=== PATIENT | female | born 1980 ===

== ENCOUNTER 2016-12-28 16:50 | Emergency (ER) | payer BC ==
[2016-12-28 16:50] VITALS: BMI 31.2
[2016-12-28 16:59] VITALS: TEMP 98.3
[2016-12-28 17:19] VITALS: RESP 16; O2SAT 98
[2016-12-28 17:45] LABS: BASO % 0.5 % (0.0-2.0); EOS # 0.2 K/uL (0.0-0.7); EOS % 3.5 % (0.0-4.0); HEMOGLOBIN 12.1 g/dL (12.0-16.0); LYMPH # 1.4 K/uL (1.0-4.3); LYMPH % 23.7 % (20.0-40.0); MEAN CELL VOLUME 90.1 fl (81.0-99.0); MEAN CORPUSCULAR HEMOGLOBIN 29.8 pg (27.0-31.0); MEAN CORPUSCULAR HGB CONC 33.1 g/dL (33.0-37.0); MEAN PLATELET VOLUME 7.1 fl (7.2-11.7); MONO # 0.5 K/uL (0.0-0.8); MONO % 8.7 % (0.0-10.0); NEUT # 3.7 K/uL (1.8-7.0); NEUT % 63.6 % (50.0-75.0); RBC 4.06 Mil/uL (3.80-5.20); RED CELL DISTRIBUTION WIDTH 13.5 % (11.5-14.5); WHITE BLOOD COUNT 5.8 K/uL (4.8-10.8)
[2016-12-28 17:54] LABS: ALB/GLOB RATIO 1.3 (1.0-2.1); ALBUMIN 4.3 g/dL (3.5-5.0); ALT/SGPT 69 U/L (9-52); AST/SGOT 50 U/L (14-36); BLOOD UREA NITROGEN 10 mg/dl (7-17); CALCIUM 9.4 mg/dL (8.4-10.2); GFR AFRICAN-AMERICAN > 60; GFR NON-AFRICAN AMERICAN > 60
--- NOTE | 2016-12-28 18:05 | ED PDOC ---
Arrival/HPI - General Chief Complaint: Shortness Of Breath Time Seen by Provider: 12/28/16 17:12 Historian: Patient - History of Present Illness Narrative History of Present Illness (Text): The patient is a 36yo female, presents to ED for evaluation of left sided chest pressure, present for the past day. Patient reports her symptoms are worse with movement and inspiration. Of note, patient reports she works in [employer]. She denies any history of hypertension, diabetes, tobacco use, family history of early deaths due to cardiac factors. Patient also denies cough, URI symptoms , abdominal pain, nausea, vomiting, diarrhea, neck pain. Patient currently offers no additional medical complaints. Past Medical History - Provider Review Nursing Documentation Reviewed: Yes - Past History Past History: No Previous - Past Medical History Past Medical History: No Previous - Cardiac Hx Cardiac Disorders: No - Pulmonary Hx Respiratory Disorders: No - Neurological Hx Neurological Disorder: No - Hematological/Oncological Hx Anemia: Yes - Psychiatric Hx Psychophysiologic Disorder: No Hx Substance Use: No - Surgical History Hx Appendectomy: Yes - Anesthesia Hx Anesthesia: Yes Hx Anesthesia Reactions: No Hx Malignant Hyperthermia: No Family/Social History - Physician Review Nursing Documentation Reviewed: Yes Family/Social History: No Known Family HX. denies: Diabetes, Hypertension, CAD/ DE, Blood Clots, Aortic/Thoracic Disection Smoking Status: Unknown If Ever Smoked Hx Alcohol Use: No Hx Substance Use: No Allergies/Home Meds Allergies/Adverse Reactions: Allergies Penicillins Allergy (Verified 12/28/16 17:14) RASH Review of Systems - Physician Review All systems were reviewed & negative as marked: Yes - Review of Systems ENT: absent: Sore Throat, Rhinorrhea, Sinus Congestion Respiratory: absent: Cough Cardiovascular: Other (chest pressure) Gastrointestinal: absent: Abdominal Pain, Diarrhea, Nausea, Vomiting Musculoskeletal: absent: Neck Pain Physical Exam Vital Signs Temp Pulse Resp BP Pulse Ox 12/28/16 18:36 70 16 122/70 98 12/28/16 17:17 16 98 12/28/16 16:56 98.3 F 76 18 119/78 100 Temperature: Afebrile Blood Pressure: Normal Pulse: Regular Respiratory Rate: Normal Appearance: Positive for: Well-Appearing, Non-Toxic, Comfortable Pain Distress: None Mental Status: Positive for: Alert and Oriented X 3 - Systems Exam Head: Present: Atraumatic, Normocephalic Pupils: Present: PERRL Extroacular Muscles: Present: EOMI Mouth: Present: Moist Mucous Membranes Respiratory/Chest: Present: Clear to Auscultation, Good Air Exchange. No: Respiratory Distress, Accessory Muscle Use Cardiovascular: Present: Regular Rate and Rhythm, Normal S1, S2. No: Murmurs Abdomen: Present: Normal Bowel Sounds. No: Tenderness, Distention, Peritoneal Signs Neurological: Present: GCS=15, CN II-XII Intact, Speech Normal Skin: Present: Warm, Dry, Normal Color. No: Rashes Psychiatric: Present: Alert, Oriented x 3, Normal Insight, Normal Concentration Medical Decision Making ED Course and Treatment: 12/28/16 18:07 Impression: Chest discomfort, no hx of cardiac complaints Plan: -- Chest x-ray -- Labs -- Toradol 30 mg IVP Reassess Scribe Attestation: Documented by Kim Montiel acting as a scribe for Helena Sterling MD. Provider Attestation: All medical record entries made by the Scribe were at my direction and personally dictated by me. I have reviewed the chart and agree that the record accurately reflects my personal performance of the history, physical exam, medical decision making, and the department course for this patient. I have also personally directed, reviewed, and agree with the discharge instructions and disposition. 12/28/16 18:11 EKG shows NSR at 80bpm with normal intervals and no ST changes. Cxray negative. Labs show normal hgb. Ddimer negative. Elevated lfts (lower than baseline). Patient has no risk factors for cardiac disease and has normal ekg. She was instructed to follow-up with PMD - Lab Interpretations Lab Results: 12/28/16 17:30 12/28/16 17:30 Lab Results 12/28/16 17:30: WBC 5.8, RBC 4.06, Hgb 12.1, Hct 36.6, MCV 90.1 D, MCH 29.8, MCHC 33.1, RDW 13.5, Plt Count 370, MPV 7.1 L, Neut % (Auto) 63.6, Lymph % (Auto ) 23.7, Mccone % (Auto) 8.7, Eos % (Auto) 3.5, Baso % (Auto) 0.5, Neut # 3.7, Lymph # 1.4, Mccone # 0.5, Eos # 0.2, Baso # 0.0 12/28/16 17:30: D-Dimer, Quantitative 146 12/28/16 17:30: Sodium 138, Potassium 4.2, Chloride 103, Carbon Dioxide 27, Anion Gap 13, BUN 10, Creatinine 0.8, Est GFR ( Amer) > 60, Est GFR (Non- Af Amer) > 60, Random Glucose 100, Calcium 9.4, Total Bilirubin 0.3, AST 50 H, ALT 69 H D, Alkaline Phosphatase 69, Total Protein 7.4, Albumin 4.3, Globulin 3.2, Albumin/Globulin Ratio 1.3 - RAD Interpretation Radiology Orders: 12/28/16 17:16 CHEST PORTABLE [RAD] Stat - Medication Orders Current Medication Orders: Discontinued Medications Ketorolac Tromethamine (Toradol) 30 mg IVP STAT STA Stop: 12/28/16 17:57 Last Admin: 12/28/16 18:01 Dose: 30 mg Disposition/Present on Arrival - Present on Arrival Any Indicators Present on Arrival: No - Disposition Have Diagnosis and Disposition been Completed?: Yes Diagnosis: Elevated LFTs, Chest pain Disposition: HOME/ ROUTINE Disposition Time: 18:12 Patient Plan: Discharge Condition: GOOD Discharge Instructions (ExitCare): Chest Pain (ED) Print Language: BELARUSIAN Additional Instructions: Follow up with PMD within 2 days. Return to ED if condition worsens. Forms: [facility] ED School/Work Excuse
--- NOTE | 2016-12-28 18:16 | RAD ---
HISTORY: chest pain COMPARISON: 08/14/2013 FINDINGS: LUNGS: No active pulmonary disease. PLEURA: No significant pleural effusion identified, no pneumothorax apparent. CARDIOVASCULAR: No radiographic findings to suggest acute or significant cardiovascular disease. OSSEOUS STRUCTURES: No significant abnormalities. VISUALIZED UPPER ABDOMEN: Normal. OTHER FINDINGS: None. IMPRESSION: No active disease. No significant interval change compared to the prior examination(s).
[2016-12-28 18:37] VITALS: BP 122/70; PULSE 70
== END 2016-12-28 18:37 | disposition home or self-care (01) ==
LOC: H.ER 16:50
DX: R07.89 Other chest pain (principal); R94.5 Abnormal results of liver function studies; Z88.0 Allergy status to penicillin
CPT/HCPCS: 71010; 80053; 81025; 85025; 85378; 96374; 99283; J1885

== ENCOUNTER 2017-01-08 16:16 | Emergency (ER) | payer OTHER, BC ==
[2017-01-08 16:16] VITALS: BMI 31.2
[2017-01-08 16:21] VITALS: BP 132/90; PULSE 123; RESP 17; TEMP 98.8; O2SAT 99
[2017-01-08] MEDS ORDERED: Naproxen 500 MG TAB PO ONE ×2 (17:18→19:05)
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
--- NOTE | 2017-01-09 14:57 | RAD ---
PROCEDURE: Cervical Spine Radiographs. HISTORY: Pain. COMPARISON: None. FINDINGS: BONES: Alignment maintained. No fracture. Dens Intact. DISC SPACES: Normal. SOFT TISSUES: Normal. No prevertebral soft tissue swelling. OTHER FINDINGS: None. IMPRESSION: Normal cervical spine radiographs
== END 2017-01-08 20:52 | disposition home or self-care (01) ==
LOC: H.ER 16:16
DX: M54.5 Low back pain (principal); S16.1XXA Strain of muscle, fascia and tendon at neck level, initial encounter; V49.50XA Passenger injured in collision with unspecified motor vehicles in traffic accident, initial encounter; Y92.410 Unspecified street and highway as the place of occurrence of the external cause; E03.9 Hypothyroidism, unspecified; Z88.0 Allergy status to penicillin

== ENCOUNTER 2017-07-21 22:23 | Emergency (ER) | payer BC ==
[2017-07-21 22:57] VITALS: BP 146/93; PULSE 110; RESP 18; TEMP 98.7; O2SAT 100
[2017-07-21 23:58] LABS: BASO # 0.1 K/uL (0.0-0.2); BASO % 0.6 % (0.0-2.0); EOS # 0.2 K/uL (0.0-0.7); EOS % 2.2 % (0.0-4.0); HEMOGLOBIN 11.9 g/dL (12.0-16.0); LYMPH # 1.7 K/uL (1.0-4.3); LYMPH % 19.4 % (20.0-40.0); MEAN CELL VOLUME 87.9 fl (81.0-99.0); MEAN CORPUSCULAR HGB CONC 34.1 g/dL (33.0-37.0); MEAN PLATELET VOLUME 7.4 fl (7.2-11.7); MONO # 0.6 K/uL (0.0-0.8); MONO % 6.4 % (0.0-10.0); NEUT # 6.1 K/uL (1.8-7.0); NEUT % 71.4 % (50.0-75.0); NRBC % 0.1 % (0.0-0.0); RBC 3.97 Mil/uL (3.80-5.20); RED CELL DISTRIBUTION WIDTH 15.8 % (11.5-14.5); WHITE BLOOD COUNT 8.6 K/uL (4.8-10.8)
[2017-07-22 00:10] LABS: BLOOD UREA NITROGEN 7 mg/dl (7-17); CALCIUM 9.6 mg/dL (8.4-10.2); GFR AFRICAN-AMERICAN > 60; GFR NON-AFRICAN AMERICAN > 60
--- NOTE | 2017-07-22 00:27 | ED PDOC ---
HPI: Abdomen Time Seen by Provider: 07/21/17 23:10 Chief Complaint (Nursing): Abdominal Pain Chief Complaint (Provider): Abdominal Pain History Per: Patient History/Exam Limitations: no limitations Onset/Duration Of Symptoms: Days (x2 days) Current Symptoms Are (Timing): Still Present Additional Complaint(s): 36 y/o female with past medical history of uterine fibroids presents to the ED complaining of lower abdominal pain since yesterday. Pain is constant, non- radiating and not worst with urination. Also reports lower back pain. Patient is 10 weeks ( and 4 miscarriages). Denies fever, vomiting, diarrhea, vaginal bleeding or any further medical complaints. Insurance Office Supervisor: Dr. Barth Past Medical History Reviewed: Historical Data, Nursing Documentation, Vital Signs Vital Signs: Last Vital Signs Temp 98.7 F 07/21/17 22:53 Pulse 110 H 07/21/17 22:53 Resp 18 07/21/17 22:53 BP 146/93 H 07/21/17 22:53 Pulse Ox 100 07/22/17 03:08 - Medical History PMH: Anemia, Hypothyroidism Other PMH: Uterine fibroid - Surgical History Surgical History: Appendectomy, - Family History Family History: States: Unknown Family Hx - Social History Current smoker - smoking cessation education provided: No Alcohol: None Drugs: Denies - Home Medications Home Medications: Ambulatory Orders Medication Instructions Recorded Ibuprofen [Motrin] 600 mg PO Q6 PRN #20 tab 10/14/14 Meclizine [Meclizine*] 25 mg PO Q6 PRN #30 tab 10/14/14 Cyclobenzaprine [Cyclobenzaprine 10 mg PO Q8 PRN #30 tab 01/08/17 HCl] Naproxen [Naprosyn] 500 mg PO BID PRN #30 tab 01/08/17 - Allergies Allergies/Adverse Reactions: Allergies Allergy/AdvReac Type Severity Reaction Status Date / Time Penicillins Allergy RASH Verified 07/21/17 22:53 Review of Systems ROS Statement: Except As Marked, All Systems Reviewed And Found Negative (As per HPI, otherwise negative) Constitutional: Negative for: Fever Gastrointestinal: Positive for: Abdominal Pain (Lower abdominal pain). Negative for: Vomiting, Diarrhea Genitourinary Female: Negative for: Vaginal Bleeding Musculoskeletal: Positive for: Back Pain (Lower) Physical Exam - Reviewed Nursing Documentation Reviewed: Yes Vital Signs Reviewed: Yes - Physical Exam Appears: Positive for: Well, Non-toxic, No Acute Distress Head Exam: Positive for: ATRAUMATIC, NORMAL INSPECTION, NORMOCEPHALIC Skin: Positive for: Normal Color, Warm, Dry Eye Exam: Positive for: Normal appearance, EOMI ENT: Positive for: Normal ENT Inspection Neck: Positive for: Normal, Painless ROM, Supple Cardiovascular/Chest: Positive for: Regular Rate, Rhythm. Negative for: Murmur Respiratory: Positive for: Normal Breath Sounds. Negative for: Respiratory Distress Gastrointestinal/Abdominal: Positive for: Soft, Tenderness (Lower abdominal tenderness), Other (Suprapubic tenderness) Back: Positive for: Normal Inspection Extremity: Positive for: Normal ROM. Negative for: Deformity Neurologic/Psych: Positive for: Alert, Oriented (x3) - Laboratory Results Result Diagrams: 07/21/17 23:54 07/21/17 23:54 - ECG O2 Sat by Pulse Oximetry: 100 (RA) Pulse Ox Interpretation: Normal Medical Decision Making Medical Decision Making: Time: 23:17 Initial Impression: abdominal pain in Differential including but not limited to UTI, uterine fibroids, complications Plan: Urine dipstick Urine Acetaminophen 650mg PO IV insertion US (OB , limited) Reevaluation Time: 02:46 Obstetrics US FINDINGS: Fetus: Single, living, intrauterine . Position: presentation is breech. Heart rate: A normal heart rate of 152 beats per minute documented by an mode imaging. Biometrics: Estimated gestational age of 19 weeks 4 days based on the current exam. This corresponds to an estimated delivery date of 12/12/2017, and is identical to LMP dating. Estimated weight 303.70 g +/- 25.56 g. This corresponds to an LMP percentile 48.9%. - Femur length 3.09 cm, corresponding to 19 weeks 4 days. - Biparietal diameter 4.50 cm, corresponding to 19 weeks 4 days. - Head circumference 16.91 cm, corresponding to 19 weeks 4 days. - Abdominal circumference 14.36 cm, corresponding to 19 weeks 5 days. - HC/AC 1.18. - Cephalic index is 75.06. Placenta: The placenta is anterior and approximately 3.2 cm from the internal cervical os. No abruption. Uterus: The uterus is heterogeneous with multiple internal heterogeneous masses measuring up to 4.7 cm x 5.8 cm x 5.3 cm in region of the right uterine fundus. Cervix: The cervix is long and closed measuring 4.2 cm in length. Adnexa: Normal appearance of the right and left adnexa. No evident mass. The ovaries are not visualized. Bladder: The imaged portion of the urinary bladder is unremarkable. IMPRESSION: 1. Single, living, intrauterine in breech presentation. Estimated gestational age of 19 weeks 4 days based on the current exam. This corresponds to an estimated delivery date of 12/12/2017, and is identical to LMP dating. 2. The placenta is anterior and well away from the cervix. 3. Estimated weight 303.70 g, corresponding to an LMP percentile of 48.9%. 4. Fibroid uterus Time: 02:59 Upon provider reevaluation patient is feeling better, is medically stable, and requires no further treatment in the ED at this time. Patient will be discharged home. Counseling was provided and all questions were answered regarding diagnosis and need for follow up with PMD. There is agreement to discharge plan. Return if symptoms persist or worsen. Clinical Impression: Uterine Fibroid Scribe Attestation: Documented by Cristina Patel acting as a scribe for Srikanth Lamb MD. Scribe Attestation: All medical record entries made by the Scribe were at my direction and personally dictated by me. I have reviewed the chart and agree that the record accurately reflects my personal performance of the history, physical exam, medical decision making, and the department course for this patient. I have also personally directed, reviewed, and agree with the discharge instructions and disposition. Disposition - Clinical Impression Clinical Impression: Abdominal pain during , Uterine fibroid - Patient ED Disposition Is Patient to be Admitted: No Doctor Will See Patient In The: Office Counseled Patient/Family Regarding: Studies Performed, Diagnosis, Need For Followup - Disposition Referrals: [facility] [Outside] Disposition: Routine/Home Disposition Time: 02:59 Condition: GOOD Additional Instructions: Follow up with your PCP in 2-3 days. Instructions: Uterine Fibroids (ED), Abdominal Pain in (ED) Print Language: KOREAN
--- NOTE | 2017-07-22 09:43 | US ---
PROCEDURE: OB Pelvic Ultrasound HISTORY: lower abdominal pain LMP: 03/07/2017. COMPARISON: None available. FINDINGS: UTERUS: Presentation: Breech. Placenta: Anterior. BPD: 4.5 cm compatible with estimated gestational age of 19 weeks, 4 days. HC: 16.9 cm compatible with estimated gestational age of 19 weeks, 4 days. HC: 14.4 cm compatible with estimated gestational age of 19 weeks, 5 days. FL: 3.1 cm compatible with estimated gestational age of 19 weeks, 4 days. Heart rate: 152 bpm. age (Ultrasound estimated): 19 weeks, 4 days. Jing-gestational hemorrhage: None. Date of delivery (Ultrasound estimated) : 12/12/2017 Multiple uterine fibroids, the largest which is seen in the fundus and measures 4.7 x 5.8 x 5.3 cm. CERVIX: Measures 4.2 cm. Long and closed. No cervical abnormality seen. RIGHT OVARY: Not visualized. LEFT OVARY: Not visualized. FREE FLUID: None. OTHER FINDINGS: None. IMPRESSION: Single live intrauterine gestation with average ultrasound age 19 weeks, 4 days. heart rate 152 beats per minute. Cervix long and closed. Multiple leiomyomas, the largest of which measures up to 5.8 cm at the fundus.
== END 2017-07-22 03:23 | disposition home or self-care (01) ==
LOC: H.EROB2 22:23 → H.ER 22:23
DX: O26.892 Other specified pregnancy related conditions, second trimester (principal); D25.9 Leiomyoma of uterus, unspecified; O34.12 Maternal care for benign tumor of corpus uteri, second trimester; E03.9 Hypothyroidism, unspecified; Z88.0 Allergy status to penicillin

== ENCOUNTER 2018-01-31 18:35 | Emergency (ER) | payer BC ==
[2018-01-31 18:35] VITALS: BMI 29.2
[2018-01-31 18:38] VITALS: RESP 16; O2SAT 100
[2018-01-31] MEDS ORDERED: Sodium Chloride 0.9% 1,000 ML IV STA (20:00)
[2018-01-31] MEDS ORDERED: Alum-Mag Hydrox-Simethicone Susp (30 mL) PO STA (20:00)
--- NOTE | 2018-01-31 20:00 | ED PDOC ---
HPI: Abdomen Time Seen by Provider: 01/31/18 18:55 Chief Complaint (Nursing): Abdominal Pain Chief Complaint (Provider): Epigastric pain x 1 month History Per: Patient History/Exam Limitations: no limitations Onset/Duration Of Symptoms: Days Outside of [place] travel?: No Current Symptoms Are (Timing): Still Present Quality Of Discomfort: Dull Associated Symptoms: Urinary Symptoms Exacerbating Factors: None Alleviating Factors: None Additional Complaint(s): 37 yo female with history of gastriitis, thyroid disease and gallbladder disease presents for evaluation of epigastric pain. PT states she was told she has stones. Pt reports being told to see surgeon but has not made an appointment yet. Pt denies fever/chills. Pt has pain today in the epigastric area with nausea and vomiting. Pt states she has been unable to tolerate PO. Past Medical History Reviewed: Historical Data, Nursing Documentation, Vital Signs Vital Signs: Last Vital Signs Temp 97.9 F 01/31/18 18:35 Pulse 114 H 01/31/18 18:35 Resp 16 01/31/18 18:35 BP 118/87 01/31/18 18:35 Pulse Ox 100 01/31/18 20:00 - Medical History PMH: Anemia, Hypothyroidism - Surgical History Surgical History: Appendectomy, - Family History Family History: States: No Known Family Hx - Living Arrangements Living Arrangements: With Family - Social History Current smoker - smoking cessation education provided: No - Home Medications Home Medications: Ambulatory Orders Medication Instructions Recorded Ibuprofen [Motrin] 600 mg PO Q6 PRN #20 tab 10/14/14 Meclizine [Meclizine*] 25 mg PO Q6 PRN #30 tab 10/14/14 Cyclobenzaprine [Cyclobenzaprine 10 mg PO Q8 PRN #30 tab 01/08/17 HCl] Naproxen [Naprosyn] 500 mg PO BID PRN #30 tab 01/08/17 Nitrofurantoin Macrocrystals 1 cap PO BID #14 cap 09/25/17 [Macrobid] - Allergies Allergies/Adverse Reactions: Allergies Allergy/AdvReac Type Severity Reaction Status Date / Time Penicillins Allergy RASH Verified 07/21/17 22:53 Review of Systems ROS Statement: Except As Marked, All Systems Reviewed And Found Negative Constitutional: Negative for: Fever, Chills Gastrointestinal: Positive for: Nausea, Vomiting, Abdominal Pain. Negative for : Diarrhea Physical Exam - Reviewed Nursing Documentation Reviewed: Yes Vital Signs Reviewed: Yes - Physical Exam Appears: Positive for: Well, Non-toxic, No Acute Distress Head Exam: Positive for: ATRAUMATIC, NORMAL INSPECTION, NORMOCEPHALIC Skin: Positive for: Normal Color, Warm, DRY Eye Exam: Positive for: Normal appearance ENT: Positive for: Normal ENT Inspection Neck: Positive for: Normal, Painless ROM Cardiovascular/Chest: Positive for: Regular Rate, Rhythm Respiratory: Positive for: Normal Breath Sounds. Negative for: Accessory Muscle Use, Respiratory Distress Gastrointestinal/Abdominal: Positive for: Soft, Tenderness (Epigastric, RUQ ). Negative for: Normal Exam Back: Positive for: Normal Inspection Extremity: Positive for: Normal ROM Neurologic/Psych: Positive for: Alert, Oriented - ECG O2 Sat by Pulse Oximetry: 100 Medical Decision Making Medical Decision Making: Endorsed to Megan Vigil PA-C pending labs and US. Disposition - Clinical Impression Clinical Impression: Abdominal pain - Patient ED Disposition Is Patient to be Admitted: Transfer of Care - Disposition Disposition: Transfer of Care Disposition Time: 20:12 Condition: STABLE Forms: [employer] (Guatemalan)
[2018-01-31] MEDS ORDERED: Alum-Mag Hydrox-Simethicone Susp (30 mL) ONE (20:12)
--- NOTE | 2018-01-31 20:21 | ED PDOC ---
- Laboratory Results Result Diagrams: 01/31/18 20:07 01/31/18 20:07 Urine POC: Negative - ECG O2 Sat by Pulse Oximetry: 100 (RA) Pulse Ox Interpretation: Normal Medical Decision Making Medical Decision Making: Case endorsed to health science writer, Musa BORJAS, at 1999 pending lab results, U/S evaluation, and re-evaluation/further disposition. Pertinent details reviewed. 2115 Labs reviewed. CMP with slight elevation of LFTs. Lipase 121. CBC (+) elevated platelets. Follow up with PMD encouraged. U/S report reviewed EXAM: US Abdomen Limited, Right Upper Quadrant CLINICAL HISTORY: 37 years old, female; Pain; Abdominal pain; Epigastric; Additional info: Ruq pain TECHNIQUE: Real-time ultrasound of the right upper quadrant with image documentation. COMPARISON: No relevant prior studies available. FINDINGS: Liver: Normal echogenicity. No mass. No intrahepatic bile duct dilatation. Gallbladder: Gallstones. Sludge. Up to 0.41 cm wall thickness. No pericholecystic fluid. No sonographic Snowden's sign. Common bile duct: No dilatation. No stones. Pancreas: Unremarkable as visualized. Right kidney: Normal echogenicity. No significant hydronephrosis. IMPRESSION: 1. Cholelithiasis with mild gallbladder wall thickening. Clinical correlation is needed. Thank you for allowing us to participate in the care of your patient. Dictated and Authenticated by: Florentino Mcclelland MD 01/31/2018 9:14 PM Eastern Time ([place] & [place]) PO challenge ordered. Pending repeat vitals. 2200 Repeat HR: 90 Repeat BP: 111/80 2210 Case discussed with ED MD Lamb who is agreeable to current treatment plan. On re-evaluation, patient reports resolution of symptoms, denies any additional vomiting episodes or abdominal pain. On exam, patient remains AAOx3, in no acute distress. Lungs clear to auscultation, cardiac RRR, abdomen soft, non- tender, repeat neuro exam shows no focal findings. VSS, stable for discharge. Lab/Diagnostic results d/w the patient in great detail. Diagnosis of abdominal pain, nausea and vomiting, gallstones d/w the patient. Based on history, exam and diagnostic results, plan will be for outpatient follow up with general surgeon. Patient instructed to follow-up with pmd / referral provided / the clinic in 1- 2 days without fail. Advised to take medication as prescribed. Return to the emergency room at any time for any new or worsening symptoms. Patient states she fully agrees with and understands discharge instructions. States that she agrees with the plan and disposition. Verbalized and repeated discharge instructions and plan. I have given the patient opportunity to ask any additional questions Disposition Counseled Patient/Family Regarding: Studies Performed, Diagnosis, Need For Followup, Rx Given - Clinical Impression Clinical Impression: Abdominal pain, Gallstones, Nausea and vomiting - POA Present On Arrival: None - Disposition Referrals: Chris Smith MD [Staff Provider] - Disposition: Routine/Home Disposition Time: 22:12 Condition: STABLE Additional Instructions: La atencin mdica de emergencia que recibi hoy se dirigi a los sntomas agudos de presentacin. Si le prescribieron algn medicamento, por favor ll basil y d justin indicado. Shaista sntomas pueden tardar varios lopez en resolverse. Regrese al Departamento de Emergencia en cualquier momento si los sntomas empeoran, no mejoran o si surge algn otro problema. Comunquese con rachel mdico en 2 lopez para guzman reevaluacin y seguimiento / o llame a samson de los mdicos / clnicas a los que mcgee referido y que figura en el formulario de Informacin de visitas del paciente que se incluye en rachel paquete de dee. Lleve todos los documentos que recibi al momento del dee junto con los medicamentos a rachel visita de seguimiento. Nuestro tratamiento no puede reemplazar la atencin mdica en curso por parte de un proveedor de atencin primaria (PCP) fuera del departamento de emergencias. Prescriptions: Famotidine [Pepcid] 40 mg PO DAILY PRN #10 tablet PRN Reason: Dyspepsia Ondansetron ODT [Zofran ODT] 4 mg PO Q6 PRN #12 odt PRN Reason: Nausea/Vomiting Instructions: Gallstones, Acute Abdomen (Belly Pain), Adult (DC), Nausea and Vomiting, Adult (DC) Forms: [employer] (Grenadian) Print Language: NEPALESE Results - Lab Results Lab Results: 01/31/18 01/31/18 20:07 20:07 WBC 11.3 H RBC 5.18 Hgb 12.5 Hct 39.4 MCV 76.0 L D MCH 24.0 L MCHC 31.6 L RDW 16.4 H Plt Count 611 H D MPV 7.2 Neut % (Auto) 91.7 H Lymph % (Auto) 5.8 L [place] % (Auto) 2.5 Eos % (Auto) 0.0 Baso % (Auto) 0.0 Neut # (Auto) 10.3 H Lymph # (Auto) 0.7 L [place] # (Auto) 0.3 Eos # (Auto) 0.0 Baso # (Auto) 0.0 Neutrophils % (Manual) 93 H Band Neutrophils % 1 Lymphocytes % (Manual) 4 L Monocytes % (Manual) 2 Platelet Estimate Increased H Polychromasia Slight Hypochromasia (manual) Slight Poikilocytosis (manual Slight Anisocytosis (manual) Slight Microcytosis (manual) Slight Ovalocytes Slight Sodium 138 Potassium 4.1 Chloride 100 Carbon Dioxide 22 Anion Gap 20 BUN 7 Creatinine 0.6 L Est GFR ( Amer) > 60 Est GFR (Non-Af Amer) > 60 Random Glucose 109 H Calcium 10.0 Total Bilirubin 0.8 AST 51 H D ALT 56 H Alkaline Phosphatase 105 Total Protein 8.9 H Albumin 4.9 Globulin 4.0 H Albumin/Globulin Ratio 1.2 Lipase 121
[2018-01-31 20:50] LABS: HEMOGLOBIN 12.5 g/dL (12.0-16.0); LYMPH # 0.7 K/uL (1.0-4.3); LYMPH % 5.8 % (20.0-40.0); MEAN CORPUSCULAR HGB CONC 31.6 g/dL (33.0-37.0); MEAN PLATELET VOLUME 7.2 fl (7.2-11.7); MONO # 0.3 K/uL (0.0-0.8); MONO % 2.5 % (0.0-10.0); NEUT # 10.3 K/uL (1.8-7.0); NEUT % 91.7 % (50.0-75.0); PLATELET COUNT 611 K/uL (130-400); RBC 5.18 Mil/uL (3.80-5.20); RED CELL DISTRIBUTION WIDTH 16.4 % (11.5-14.5); WHITE BLOOD COUNT 11.3 K/uL (4.8-10.8)
[2018-01-31 21:08] LABS: ALB/GLOB RATIO 1.2 (1.0-2.1); ALBUMIN 4.9 g/dL (3.5-5.0); ALT/SGPT 56 U/L (9-52); AST/SGOT 51 U/L (14-36); BLOOD UREA NITROGEN 7 mg/dl (7-17); GFR AFRICAN-AMERICAN > 60; GFR NON-AFRICAN AMERICAN > 60; LIPASE 121 U/L (23-300)
[2018-01-31 21:36] VITALS: BP 111/80; PULSE 90; TEMP 98.8
[2018-01-31 22:56] LABS: BANDS 1 % (0-2); LYMPHOCYTE 4 % (20-50); MONOCYTE 2 % (0-10); NEUTROPHIL 93 % (42-75); TOTAL CELLS COUNTED 100
[2018-01-31 22:57] LABS: ANISOCYTOSIS SLIGHT; HYPOCHROMIC SLIGHT; MICROCYTOSIS SLIGHT; OVALOCYTES SLIGHT; PLATELET ESTIMATE INCREASED (NORMAL); POIKILOCYTOSIS SLIGHT; POLYCHROMIC SLIGHT
--- NOTE | 2018-02-01 09:22 | US ---
Date of service: 01/31/2018 HISTORY: ruq pain COMPARISON: None. TECHNIQUE: Sonographic evaluation of the right upper quadrant of the abdomen. FINDINGS: LIVER: Measures 14.8 cm in length. Normal echogenicity of the liver parenchyma. No mass. No intrahepatic bile duct dilatation. GALLBLADDER: Cholelithiasis. Sludge. Mild mural thickening. No pericholecystic fluid. Negative sonographic Snowden sign. Findings are equivocal for cholecystitis. COMMON BILE DUCT: Measures 3 mm. No stones. No dilatation. PANCREAS: Unremarkable as visualized. No mass. No ductal dilatation. RIGHT KIDNEY: Measures 8.6 cm in length. Normal echogenicity. No calculus, mass, or hydronephrosis. AORTA: No aneurysmal dilatation. IVC: Unremarkable. OTHER FINDINGS: None . IMPRESSION: Cholelithiasis with mild mural thickening but no pericholecystic fluid or sonographic Snowden sign. The findings are equivocal for cholecystitis. The preliminary findings for this examination were reported by [facility] at 9:14 p.m. on 01/31/2018. There is concurrence of this report with the preliminary findings.
== END 2018-01-31 22:35 | disposition home or self-care (01) ==
LOC: H.ER 18:35
DX: R10.13 Epigastric pain (principal); K80.20 Calculus of gallbladder without cholecystitis without obstruction; R11.2 Nausea with vomiting, unspecified; E03.9 Hypothyroidism, unspecified; Z88.0 Allergy status to penicillin
CPT/HCPCS: 76705; 80053; 81025; 83690; 85025; 96360; 99283; J2405; J7030

== ENCOUNTER 2018-02-10 06:42 | Inpatient (IN) | payer BC ==
[2018-02-10 06:42] VITALS: BMI 29.2
[2018-02-10] MEDS ORDERED: Sodium Chloride 0.9% 1,000 ML IV STA (07:08)
--- NOTE | 2018-02-10 07:15 | ED PDOC ---
HPI: Abdomen Time Seen by Provider: 02/10/18 07:03 Chief Complaint (Nursing): Abdominal Pain Chief Complaint (Provider): Abdominal Pain History Per: Patient History/Exam Limitations: no limitations Onset/Duration Of Symptoms: Hrs Location Of Pain/Discomfort: RUQ Associated Symptoms: Nausea, Vomiting. denies: Fever, Diarrhea Additional Complaint(s): 37 years old female with history of gallstones presents to the ED complaining of right upper quadrant pain associated with nausea and vomiting onset last night. Patient is scheduled for cholecystectomy in March. She denies any fever or diarrhea. PMD: Cecy Past Medical History Reviewed: Historical Data, Nursing Documentation, Vital Signs Vital Signs: Last Vital Signs Temp 98 F 02/10/18 07:00 Pulse 118 H 02/10/18 07:00 Resp 16 02/10/18 07:00 BP 127/94 H 02/10/18 07:00 Pulse Ox 100 02/10/18 07:19 - Medical History PMH: Anemia, Hypothyroidism - Surgical History Surgical History: Appendectomy, - Family History Family History: States: Unknown Family Hx - Home Medications Home Medications: Ambulatory Orders Medication Instructions Recorded Ibuprofen [Motrin] 600 mg PO Q6 PRN #20 tab 10/14/14 Meclizine [Meclizine*] 25 mg PO Q6 PRN #30 tab 10/14/14 Cyclobenzaprine [Cyclobenzaprine 10 mg PO Q8 PRN #30 tab 01/08/17 HCl] Naproxen [Naprosyn] 500 mg PO BID PRN #30 tab 01/08/17 Nitrofurantoin Macrocrystals 1 cap PO BID #14 cap 09/25/17 [Macrobid] Famotidine [Pepcid] 40 mg PO DAILY PRN #10 tablet 01/31/18 Ondansetron ODT [Zofran ODT] 4 mg PO Q6 PRN #12 odt 01/31/18 - Allergies Allergies/Adverse Reactions: Allergies Allergy/AdvReac Type Severity Reaction Status Date / Time Penicillins Allergy RASH Verified 02/10/18 07:00 Review of Systems ROS Statement: Except As Marked, All Systems Reviewed And Found Negative Constitutional: Negative for: Fever Gastrointestinal: Positive for: Nausea, Vomiting, Abdominal Pain (RUQ). Negative for: Diarrhea Physical Exam - Reviewed Nursing Documentation Reviewed: Yes Vital Signs Reviewed: Yes - Physical Exam Appears: Positive for: Non-toxic, No Acute Distress Cardiovascular/Chest: Positive for: Regular Rate, Rhythm. Negative for: Murmur Respiratory: Positive for: Normal Breath Sounds. Negative for: Respiratory Distress Gastrointestinal/Abdominal: Positive for: Tenderness (RUQ). Negative for: Rebound Extremity: Positive for: Normal ROM. Negative for: Tenderness, Swelling Neurologic/Psych: Positive for: Alert, Oriented - Laboratory Results Result Diagrams: 02/10/18 07:23 02/10/18 07:23 - ECG O2 Sat by Pulse Oximetry: 100 (RA) Pulse Ox Interpretation: Normal Medical Decision Making Medical Decision Making: Time: 706 Initial Plan: --CMP --Lipase --Urine --Urine dipstick --CBC --Morphine --NaCl 2 mg IVP --Pepcid 20 mg IVP --Zofran 4 mg IVP --Abdomen US limited ----- Scribe Attestation: Documented by Beata Garcia, acting as a scribe for Ab Cole MD. Provider Scribe Attestation: All medical record entries made by the Scribe were at my direction and personally dictated by me. I have reviewed the chart and agree that the record accurately reflects my personal performance of the history, physical exam, medical decision making, and the department course for this patient. I have also personally directed, reviewed, and agree with the discharge instructions and disposition. Disposition - Clinical Impression Clinical Impression: Cholecystitis - Patient ED Disposition Is Patient to be Admitted: Yes - Disposition Disposition Time: 10:33 Condition: FAIR Forms: [facility] (Albanian) - Pt Status Changed To: Hospital Disposition Of: Inpatient - Admit Certification Admit to Inpatient:: After my assessment, the patient will require hospitalization for at least two midnights. This is because of the severity of symptoms shown, intensity of services needed, and/or the medical risk in this patient being treated as an outpatient. - POA Present On Arrival: None
[2018-02-10 07:33] LABS: BASO % 0.3 % (0.0-2.0); EOS % 0.1 % (0.0-4.0); HEMOGLOBIN 11.8 g/dL (12.0-16.0); LYMPH # 0.6 K/uL (1.0-4.3); LYMPH % 5.3 % (20.0-40.0); MEAN CORPUSCULAR HEMOGLOBIN 23.9 pg (27.0-31.0); MEAN CORPUSCULAR HGB CONC 31.4 g/dL (33.0-37.0); MEAN PLATELET VOLUME 6.9 fl (7.2-11.7); MONO # 0.5 K/uL (0.0-0.8); MONO % 4.6 % (0.0-10.0); NEUT % 89.7 % (50.0-75.0); PLATELET COUNT 555 K/uL (130-400); RBC 4.92 Mil/uL (3.80-5.20); RED CELL DISTRIBUTION WIDTH 17.2 % (11.5-14.5); WHITE BLOOD COUNT 11.1 K/uL (4.8-10.8)
[2018-02-10 07:53] LABS: ALB/GLOB RATIO 1.4 (1.0-2.1); ALBUMIN 4.8 g/dL (3.5-5.0); ALT/SGPT 39 U/L (9-52); AST/SGOT 33 U/L (14-36); BLOOD UREA NITROGEN 8 mg/dl (7-17); CALCIUM 10.2 mg/dL (8.4-10.2); GFR NON-AFRICAN AMERICAN > 60; LIPASE 113 U/L (23-300)
[2018-02-10 10:03] LABS: BANDS 9 % (0-2); LYMPHOCYTE 5 % (20-50); MONOCYTE 4 % (0-10); NEUTROPHIL 82 % (42-75); TOTAL CELLS COUNTED 100
[2018-02-10 10:05] LABS: MICROCYTOSIS SLIGHT; PLATELET ESTIMATE SLIGHTLY INCREASED (NORMAL)
[2018-02-10] MEDS ORDERED: Ciprofloxacin 400mg/200ml D5W 400 MG/200 ML BAG IVPB STA (10:27)
[2018-02-10] MEDS ORDERED: metroNIDAZOLE 500mg/100ml NS 100 ML IVPB STA (10:27)
[2018-02-10] MEDS ORDERED: Gentamicin 80mg/50ml NS 80 MG/50 ML BAG IVPB ONE (10:52)
--- NOTE | 2018-02-10 11:16 | US ---
Date of service: 02/10/2018 HISTORY: RUQ pain COMPARISON: Comparison made with prior study 01/31/2018. The the the the the the TECHNIQUE: Sonographic evaluation of the right upper quadrant of the abdomen. FINDINGS: LIVER: Measures approximately 14 cm in length. Normal echogenicity of the liver parenchyma. No mass. No intrahepatic bile duct dilatation. GALLBLADDER: Redemonstrated are multiple intraluminal gallbladder calculi. There appears to be mild gallbladder wall thickening however and no pericholecystic fluid collections or sonographic Snowden sign. COMMON BILE DUCT: Measures 2.3 mm. No stones. No dilatation. PANCREAS: Unremarkable as visualized. No mass. No ductal dilatation. RIGHT KIDNEY: Measures 9.2 x 5.4 x 4.5 cm in length. Normal echogenicity. No calculus, mass, or hydronephrosis. AORTA: No aneurysmal dilatation. IVC: Unremarkable. OTHER FINDINGS: None . IMPRESSION: Re- demonstrated is cholelithiasis. There appears to be mild gallbladder wall thickening however no pericholecystic fluid collections or sonographic Snowden sign
--- NOTE | 2018-02-10 11:23 | CP.PCM.CON ---
<HoodLisbeth garcia - Last Filed: 02/10/18 12:02> History of Present Illness - History of Present Illness History of Present Illness: General Surgery - Dr. Smith 33 yo F presenting w/ RUQ abdominal pain x1 day. Pt states the pain began last night around 10pm and persisted throughout the night. She describes it as a sharp pain located in the RUQ abdomen, 10/10 at worst. She had associated nausea and vomiting. Pt states that her pain has improved since being in the ED and her nausea/vomiting resolved. She has had episodes like this before and was scheduled to have her gallbladder removed electively in the future, however this episode was severe and prompted her to come to the ED. She denies any Fevers/Chills, SOb/Chest pain, Diarrhea/Constipation, Dysuria, hematuria. PMH: Hypothyroid PSH: , Open appendectomy ~15yrs ago Meds: Synthroid All: Penicillin Pt was seen in the ED. Labs with WBC of 11.1 and bandemia, LFTs all within normal limits. She had RUQ U/S done which showed cholelithiasis and mild gallbladder wall thickening. Pt was admitted to the medical service and surgery consulted for cholecystitis. Review of Systems - Review of Systems All systems: reviewed and no additional remarkable complaints except (as per HPI ) Past Patient History - Past Social History Smoking Status: Unknown If Ever Smoked - CARDIAC Hx Cardiac Disorders: No - PULMONARY Hx Respiratory Disorders: No - NEUROLOGICAL Hx Neurological Disorder: No - ENDOCRINE/METABOLIC Hx Hypothyroidism: Yes - HEMATOLOGICAL/ONCOLOGICAL Hx Anemia: Yes - GENITOURINARY/GYNECOLOGICAL Other/Comment: Uterine fibroids - PSYCHIATRIC Hx Psychophysiologic Disorder: No Hx Substance Use: No - SURGICAL HISTORY Hx Appendectomy: Yes - ANESTHESIA Hx Anesthesia: Yes Hx Anesthesia Reactions: No Hx Malignant Hyperthermia: No Meds Allergies/Adverse Reactions: Allergies Allergy/AdvReac Type Severity Reaction Status Date / Time Penicillins Allergy RASH Verified 02/10/18 07:00 - Medications Medications: Current Medications Sodium Chloride (Sodium Chloride 0.9%) 1,000 mls @ 100 mls/hr IV .Q10H STA Stop: 02/10/18 17:07 Last Admin: 02/10/18 07:30 Dose: 100 mls/hr Ciprofloxacin (Cipro 400mg/200ml Dsw) 400 mg in 200 mls @ 200 mls/hr IVPB STAT STA PRN Reason: Protocol Stop: 02/10/18 11:26 Metronidazole (Flagyl 500mg/100ml Ns) 100 mls @ 100 mls/hr IVPB STAT STA PRN Reason: Protocol Stop: 02/10/18 11:26 Gentamicin Sulfate/Sodium Chloride (Gentamicin 80mg/50ml Ns) 80 mg in 50 mls @ 50 mls/hr IVPB ONCE ONE PRN Reason: Protocol Stop: 02/10/18 11:51 Physical Exam - Constitutional Appears: No Acute Distress - Head Exam Head Exam: ATRAUMATIC, NORMAL INSPECTION, NORMOCEPHALIC - Eye Exam Eye Exam: Normal appearance - ENT Exam ENT Exam: Mucous Membranes Moist - Respiratory Exam Respiratory Exam: NORMAL BREATHING PATTERN. absent: Respiratory Distress - Cardiovascular Exam Cardiovascular Exam: REGULAR RHYTHM - GI/Abdominal Exam GI & Abdominal Exam: Guarding, Soft, Tenderness (RUQ, + [place]). absent: Distended, Firm, Rebound, Rigid - Neurological Exam Neurological exam: Alert, Oriented x3 - Psychiatric Exam Psychiatric exam: Normal Affect, Normal Mood - Skin Skin Exam: Dry, Intact Results - Vital Signs Recent Vital Signs: Last Vital Signs Temp 98 F 02/10/18 07:00 Pulse 118 H 02/10/18 07:00 Resp 16 02/10/18 07:00 BP 127/94 H 02/10/18 07:00 Pulse Ox 100 02/10/18 10:33 - Labs Result Diagrams: 02/10/18 07:23 02/10/18 07:23 Labs: Laboratory Results - last 24 hr 02/10/18 02/10/18 07:23 07:23 WBC 11.1 H RBC 4.92 Hgb 11.8 L Hct 37.4 MCV 76.0 L MCH 23.9 L MCHC 31.4 L RDW 17.2 H Plt Count 555 H MPV 6.9 L Neut % (Auto) 89.7 H Lymph % (Auto) 5.3 L [place] % (Auto) 4.6 Eos % (Auto) 0.1 Baso % (Auto) 0.3 Neut # (Auto) 10.0 H Lymph # (Auto) 0.6 L [place] # (Auto) 0.5 Eos # (Auto) 0.0 Baso # (Auto) 0.0 Neutrophils % (Manual) 82 H Band Neutrophils % 9 H Lymphocytes % (Manual) 5 L Monocytes % (Manual) 4 Platelet Estimate Slightly increased H Microcytosis (manual) Slight Sodium 136 Potassium 4.8 Chloride 99 Carbon Dioxide 22 Anion Gap 20 BUN 8 Creatinine 0.7 Est GFR ( Amer) > 60 Est GFR (Non-Af Amer) > 60 Random Glucose 154 H Calcium 10.2 Total Bilirubin 0.6 AST 33 ALT 39 Alkaline Phosphatase 95 Total Protein 8.2 Albumin 4.8 Globulin 3.5 Albumin/Globulin Ratio 1.4 Lipase 113 - Imaging and Cardiology US - abdomen Status: Image reviewed by me, Report reviewed by me Assessment & Plan - Assessment and Plan (Free Text) Assessment: 37F w/ symptomatic cholelithiasis, possible early cholecystitis Plan: -Admit to hospital -Clear liquid diet today, NPO after midnight -Pain control PRN -IV Abx: Cipro/Flagyl -Plan for OR tomorrow for cholecystectomy DW Dr Sarah Hood PGY4 <Chris Smith - Last Filed: 02/10/18 15:51> History of Present Illness - History of Present Illness History of Present Illness: Patient was seen and examined at the bedside. Agree with resident's note above. Meds - Medications Medications: Current Medications Sodium Chloride (Sodium Chloride 0.9%) 1,000 mls @ 100 mls/hr IV .Q10H STA Stop: 02/10/18 17:07 Last Admin: 02/10/18 07:30 Dose: 100 mls/hr Ciprofloxacin (Cipro 400mg/200ml Dsw) 400 mg in 200 mls @ 200 mls/hr IVPB Q12 DIVYA PRN Reason: Protocol Metronidazole (Flagyl 500mg/100ml Ns) 100 mls @ 100 mls/hr IVPB Q12 DIVYA PRN Reason: Protocol Levothyroxine Sodium (Synthroid) 25 mcg PO DAILY DIVYA Morphine Sulfate (Morphine) 2 mg IVP Q4 PRN PRN Reason: Pain, moderate (4-7) Physical Exam - GI/Abdominal Exam Additional comments: soft, epigastric and RUQ tenderness to palpation, ND, BS+, no rebound, no guarding, well healed scars from prior surgeries Results - Vital Signs Recent Vital Signs: Last Vital Signs Temp 97.4 F L 02/10/18 12:36 Pulse 84 02/10/18 12:59 Resp 18 08/26/18 12:59 BP 102/67 02/10/18 12:36 Pulse Ox 100 02/10/18 12:59 - Labs Result Diagrams: 02/10/18 07:23 02/10/18 07:23 Labs: Laboratory Results - last 24 hr 02/10/18 02/10/18 02/10/18 07:23 07:23 11:30 WBC 11.1 H RBC 4.92 Hgb 11.8 L Hct 37.4 MCV 76.0 L MCH 23.9 L MCHC 31.4 L RDW 17.2 H Plt Count 555 H MPV 6.9 L Neut % (Auto) 89.7 H Lymph % (Auto) 5.3 L [place] % (Auto) 4.6 Eos % (Auto) 0.1 Baso % (Auto) 0.3 Neut # (Auto) 10.0 H Lymph # (Auto) 0.6 L [place] # (Auto) 0.5 Eos # (Auto) 0.0 Baso # (Auto) 0.0 Neutrophils % (Manual) 82 H Band Neutrophils % 9 H Lymphocytes % (Manual) 5 L Monocytes % (Manual) 4 Platelet Estimate Slightly increased H Microcytosis (manual) Slight PT 11.1 INR 1.0 Sodium 136 Potassium 4.8 Chloride 99 Carbon Dioxide 22 Anion Gap 20 BUN 8 Creatinine 0.7 Est GFR ( Amer) > 60 Est GFR (Non-Af Amer) > 60 Random Glucose 154 H Calcium 10.2 Total Bilirubin 0.6 AST 33 ALT 39 Alkaline Phosphatase 95 Total Protein 8.2 Albumin 4.8 Globulin 3.5 Albumin/Globulin Ratio 1.4 Lipase 113
[2018-02-10] MEDS ORDERED: Ciprofloxacin 400mg/200ml D5W 400 MG/200 ML BAG IVPB ONE (11:37)
[2018-02-10] MEDS ORDERED: Gentamicin 80 mg/2mL Inj. ONE (11:38)
[2018-02-10] MEDS ORDERED: metroNIDAZOLE 500mg/100ml NS 100 ML IVPB ONE (11:38)
[2018-02-10 11:43] LABS: PROTHROMBIN TIME 11.1 Seconds (9.8-13.1)
[2018-02-10] MEDS: Levothyroxine 25 MCG TAB PO SCH (16:03)
[2018-02-10] MEDS: Potassium Ch 20mEq in D5-1/2NS 1,000 ML IV SCH (20:32)
[2018-02-10] MEDS: metroNIDAZOLE 500mg/100ml NS 100 ML IVPB SCH (20:33)
[2018-02-10] MEDS: Ciprofloxacin 400mg/200ml D5W 400 MG/200 ML BAG IVPB SCH (21:28)
[2018-02-11 07:48] LABS: BASO % 0.4 % (0.0-2.0); EOS # 0.1 K/uL (0.0-0.7); EOS % 1.4 % (0.0-4.0); HEMOGLOBIN 9.1 g/dL (12.0-16.0); LYMPH # 1.9 K/uL (1.0-4.3); LYMPH % 37.5 % (20.0-40.0); MEAN CELL VOLUME 76.5 fl (81.0-99.0); MEAN CORPUSCULAR HEMOGLOBIN 24.6 pg (27.0-31.0); MEAN CORPUSCULAR HGB CONC 32.2 g/dL (33.0-37.0); MONO # 0.5 K/uL (0.0-0.8); MONO % 9.7 % (0.0-10.0); NEUT # 2.6 K/uL (1.8-7.0); RBC 3.69 Mil/uL (3.80-5.20); RED CELL DISTRIBUTION WIDTH 16.7 % (11.5-14.5); WHITE BLOOD COUNT 5.1 K/uL (4.8-10.8)
[2018-02-11] MEDS: Ciprofloxacin 400mg/200ml D5W 400 MG/200 ML BAG IVPB SCH ×2 (08:17→22:00)
[2018-02-11 08:56] LABS: ALBUMIN 3.5 g/dL (3.5-5.0); ALT/SGPT 40 U/L (9-52); AST/SGOT 32 U/L (14-36); BLOOD UREA NITROGEN 4 mg/dl (7-17); CALCIUM 8.9 mg/dL (8.4-10.2); GFR NON-AFRICAN AMERICAN > 60
--- NOTE | 2018-02-11 09:29 | CP.PCM.PN ---
Subjective - Date & Time of Evaluation Date of Evaluation: 02/11/18 Time of Evaluation: 09:27 - Subjective Subjective: General Surgery Pt seen and examined this AM. Pt denies having abdominal pain. (-) N/V/D. Afebrile. Labs and vitals noted PE Gen: Pt laying in bed in NAD Skin: warm and dry Cardio: s1s2 RRR Lungs: CTA bilaterally Abd: soft ntnd Extr: (-) calf tenderness bilaterally A/P Cholecystitis OR tomorrow for lap zack Clear liquids today NPO after midnight Continue iv abx Continue pain meds prn Objective - Vital Signs/Intake and Output Vital Signs (last 24 hours): Temp Pulse Resp BP Pulse Ox 97.9 F 77 18 110/75 100 02/11/18 08:35 02/11/18 08:35 02/11/18 08:35 02/11/18 08:35 02/11/18 08:35 - Medications Medications: Current Medications Ciprofloxacin (Cipro 400mg/200ml Dsw) 400 mg in 200 mls @ 200 mls/hr IVPB Q12 DIVYA PRN Reason: Protocol Last Admin: 02/11/18 08:17 Dose: 200 mls/hr Metronidazole (Flagyl 500mg/100ml Ns) 100 mls @ 100 mls/hr IVPB Q12 DIVYA PRN Reason: Protocol Last Admin: 02/10/18 20:33 Dose: 100 mls/hr Potassium Chloride/Dextrose/Sod Cl (Potassium Chl 20 Meq In D5-1/2ns) 1,000 mls @ 100 mls/hr IV .Q10H DIVYA Stop: 02/11/18 19:18 Last Admin: 02/10/18 20:32 Dose: 100 mls/hr Levothyroxine Sodium (Synthroid) 25 mcg PO DAILY DIVYA Last Admin: 02/10/18 16:03 Dose: 25 mcg Morphine Sulfate (Morphine) 2 mg IVP Q4 PRN PRN Reason: Pain, moderate (4-7) Last Admin: 02/11/18 00:49 Dose: 2 mg - Labs Labs: 02/11/18 07:20 02/11/18 07:20 PT 11.1 Seconds (9.8-13.1) 02/10/18 11:30 INR 1.0 02/10/18 11:30
[2018-02-11 09:33] LABS: ALB/GLOB RATIO 1.2 (1.0-2.1)
[2018-02-11] MEDS: metroNIDAZOLE 500mg/100ml NS 100 ML IVPB SCH ×2 (09:36→20:50)
[2018-02-11] MEDS: Potassium Ch 20mEq in D5-1/2NS 1,000 ML IV SCH (09:39)
[2018-02-11] MEDS: Dextrose 5%/0.45% NS 1,000 ML IV SCH (16:43)
[2018-02-12] MEDS: Dextrose 5%/0.45% NS 1,000 ML IV SCH (03:15)
[2018-02-12 07:02] LABS: MEAN CELL VOLUME 76.1 fl (81.0-99.0); MEAN CORPUSCULAR HEMOGLOBIN 23.8 pg (27.0-31.0); MEAN CORPUSCULAR HGB CONC 31.3 g/dL (33.0-37.0); RBC 3.76 Mil/uL (3.80-5.20); RED CELL DISTRIBUTION WIDTH 16.7 % (11.5-14.5); WHITE BLOOD COUNT 4.8 K/uL (4.8-10.8)
[2018-02-12 07:37] LABS: ALB/GLOB RATIO 1.1 (1.0-2.1); ALBUMIN 3.3 g/dL (3.5-5.0); ALT/SGPT 30 U/L (9-52); AST/SGOT 45 U/L (14-36); BLOOD UREA NITROGEN 2 mg/dl (7-17); CALCIUM 8.6 mg/dL (8.4-10.2); GFR NON-AFRICAN AMERICAN > 60
[2018-02-12] MEDS: Ciprofloxacin 400mg/200ml D5W 400 MG/200 ML BAG IVPB SCH (08:32)
[2018-02-12] MEDS: Levothyroxine 25 MCG TAB PO SCH (08:58)
--- NOTE | 2018-02-12 09:24 | CP.PCM.HP ---
<Allan Laboy - Last Filed: 02/12/18 09:13> History of Present Illness - History of Present Illness History of Present Illness: 37 y/o F with a PMHx of hypothyroidism and cholelithiasis presented to ED 2 days ago due to RUQ abdominal pain, nausea and vomiting after having a fatty meal the night before onset of symptoms. No fever or diarrhea reported. Pt had a similar episode a few weeks ago in which cholelithiasis was diagnosed and plans for surgery were made in 1-2 months. Pt delivered a baby 3 months ago, was until 3 days ago. LMP 02/05/18. -Today, pt reports feeling well, afebrile with NO acute events overnight. Pt is NPO in preparation for upcoming surgical procedure. PMD: Dr Soto -Allergies: Penicillins -Medications: Levothyroxine 25mcg and PNV. -PMHx: hypothyroidism -PSHx: Appendectomy and -SHx: No tobacco, alcohol or rec drugs Present on Admission - Present on Admission Any Indicators Present on Admission: No Review of Systems - Constitutional Constitutional: absent: Chills, Fever - EENT Eyes: absent: Change in Vision Nose/Mouth/Throat: absent: Nasal Congestion - Breasts Breasts: absent: Nipple Discharge - Cardiovascular Cardiovascular: absent: Chest Pain, Chest Pain with Activity - Respiratory Respiratory: absent: Cough, Dyspnea, Hemoptysis - Gastrointestinal Gastrointestinal: Abdominal Pain (RUQ), Nausea, Vomiting. absent: Diarrhea - Genitourinary Genitourinary: absent: Difficulty Urinating, Dysuria, Flank Pain, Urinary Frequency - Neurological Neurological: absent: Headaches Past Patient History - Past Medical History & Family History Past Medical History?: Yes - Past Social History Smoking Status: Never Smoked - CARDIAC Hx Cardiac Disorders: No - PULMONARY Hx Respiratory Disorders: No - NEUROLOGICAL Hx Neurological Disorder: No - HEENT Hx HEENT Problems: No - RENAL Hx Chronic Kidney Disease: No - ENDOCRINE/METABOLIC Hx Hypothyroidism: Yes Other/Comment: takes levothyroxine 25 mcg daily - HEMATOLOGICAL/ONCOLOGICAL Hx AIDS: No Hx Anemia: Yes Hx Human Immunodeficiency Virus (HIV): No - INTEGUMENTARY Hx Dermatological Problems: No - MUSCULOSKELETAL/RHEUMATOLOGICAL Hx Musculoskeletal Disorders: No Hx Falls: No - GASTROINTESTINAL Hx Gall Bladder Disease: Yes - GENITOURINARY/GYNECOLOGICAL Other/Comment: Uterine fibroids - PSYCHIATRIC Hx Psychophysiologic Disorder: No Hx Substance Use: No - SURGICAL HISTORY Hx Appendectomy: Yes - ANESTHESIA Hx Anesthesia: Yes Hx Anesthesia Reactions: No Hx Malignant Hyperthermia: No Meds Allergies/Adverse Reactions: Allergies Allergy/AdvReac Type Severity Reaction Status Date / Time Penicillins Allergy RASH Verified 02/10/18 07:00 Physical Exam - Head Exam Head Exam: ATRAUMATIC, NORMAL INSPECTION - Eye Exam Eye Exam: EOMI - ENT Exam ENT Exam: Mucous Membranes Moist, Normal Exam - Neck Exam Neck exam: Positive for: Normal Inspection - Respiratory Exam Respiratory Exam: Clear to Auscultation Bilateral, NORMAL BREATHING PATTERN - Cardiovascular Exam Cardiovascular Exam: REGULAR RHYTHM, +S1, +S2 - GI/Abdominal Exam GI & Abdominal Exam: Normal Bowel Sounds, Soft, Tenderness (RUQ). absent: Distended, Firm, Guarding, Organomegaly - Extremities Exam Extremities exam: Positive for: full ROM, normal inspection. Negative for: calf tenderness - Neurological Exam Neurological exam: Alert, Oriented x3 Results - Vital Signs Recent Vital Signs: Last Vital Signs Temp 97.2 F L 02/12/18 05:43 Pulse 67 02/12/18 05:43 Resp 18 02/12/18 05:43 BP 98/70 L 02/12/18 05:43 Pulse Ox 100 02/12/18 05:43 - Labs Result Diagrams: 02/12/18 06:00 02/12/18 06:00 Labs: Laboratory Results - last 24 hr 02/11/18 02/12/18 02/12/18 07:20 06:00 06:00 WBC 4.8 RBC 3.76 L Hgb 9.0 L Hct 28.6 L MCV 76.1 L MCH 23.8 L MCHC 31.3 L RDW 16.7 H Plt Count 437 H Sodium 138 Potassium 4.3 Chloride 107 Carbon Dioxide 22 Anion Gap 13 BUN 2 L Creatinine 0.5 L Est GFR ( Amer) > 60 Est GFR (Non-Af Amer) > 60 Random Glucose 108 H Calcium 8.6 Phosphorus 4.2 Magnesium 1.7 Total Bilirubin 0.4 AST 45 H D ALT 30 Alkaline Phosphatase 43 Total Protein 6.3 Albumin 3.3 L Globulin 2.9 2.9 Albumin/Globulin Ratio 1.2 1.1 Assessment & Plan (1) Cholelithiasis Status: Acute (2) Nausea and vomiting Status: Acute - Assessment and Plan (Free Text) Assessment: 37 y/o F with a PMHx of hypothyroidism admitted for evaluation and management of symptomatic cholelithiasis. --Pt afebrile, stable, is optimized for surgical procedure. --Admit to hospital. --NPO --General Surgery consult, Dr Smith. --On Ciprofloxacin and Metronidazole. --Plan is to proceed with surgery today 02/12/18. --Continue management as ordered. - Date & Time Date: 02/12/18 Time: 09:30 <Khai Tejeda - Last Filed: 02/12/18 18:53> Results - Vital Signs Recent Vital Signs: Last Vital Signs Temp 98.1 F 02/12/18 16:45 Pulse 85 02/12/18 17:00 Resp 17 02/12/18 17:00 BP 116/74 02/12/18 17:00 Pulse Ox 99 02/12/18 17:00 - Labs Result Diagrams: 02/12/18 06:00 02/12/18 06:00 Labs: Laboratory Results - last 24 hr 02/12/18 02/12/18 06:00 06:00 WBC 4.8 RBC 3.76 L Hgb 9.0 L Hct 28.6 L MCV 76.1 L MCH 23.8 L MCHC 31.3 L RDW 16.7 H Plt Count 437 H Sodium 138 Potassium 4.3 Chloride 107 Carbon Dioxide 22 Anion Gap 13 BUN 2 L Creatinine 0.5 L Est GFR ( Amer) > 60 Est GFR (Non-Af Amer) > 60 Random Glucose 108 H Calcium 8.6 Phosphorus 4.2 Magnesium 1.7 Total Bilirubin 0.4 AST 45 H D ALT 30 Alkaline Phosphatase 43 Total Protein 6.3 Albumin 3.3 L Globulin 2.9 Albumin/Globulin Ratio 1.1 Assessment & Plan - Assessment and Plan (Free Text) Assessment: Patient was personally seen and examined by me in rounds with residents. Available labs and diagnostic data reviewed. Case, Patient's condition and management plan discussed with residents in rounds. Agree with resident's progress note. Plan: As ordered.
[2018-02-12] MEDS: metroNIDAZOLE 500mg/100ml NS 100 ML IVPB SCH (09:41)
[2018-02-12] MEDS ORDERED: Bupivacaine HCl 0.25% PF (30 ml) Inj ONE (12:47)
[2018-02-12] MEDS ORDERED: Midazolam 2 MG/2 ML VIAL ONE (13:32)
[2018-02-12] MEDS ORDERED: Succinylcholine 200 mg/10 ml Inj IV ONE (13:33)
[2018-02-12] MEDS ORDERED: Rocuronium 10 mg/ml (5 ml) ONE (13:33)
[2018-02-12] MEDS ORDERED: Lactated Ringer's 1,000 ML IV ONE (13:55)
[2018-02-12] MEDS ORDERED: Lidocaine 4% (Laryng-O-Jet) Kit MM ONE (14:11)
[2018-02-12] MEDS ORDERED: Dexamethasone 4 mg/1 ml ONE (14:13)
[2018-02-12] MEDS ORDERED: Neostigmine 1:1000 (1 mg/ml) Inj ONE (14:18)
--- NOTE | 2018-02-12 15:17 | PCM.SURG1 ---
<Lisbeth Hood - Last Filed: 02/12/18 15:15> Surgeon's Initial Post Op Note - Surgeon's Notes Surgeon: Dr. Smith Biostatistician: Dr. Hood PGY4, Dr. Ramos PGY2 Type of Anesthesia: General Endo Anesthesia Administered By: Dr. White Pre-Operative Diagnosis: Symptomatic Cholelithiasis Operative Findings: same Post-Operative Diagnosis: same Operation Performed: Laparoscopic Cholecystectomy Specimen/Specimens Removed: Gallbladder Estimated Blood Loss: EBL {In ML}: 10 Blood Products Given: N/A Drains Used: No Drains Post-Op Condition: Good Date of Surgery/Procedure: 02/12/18 Time of Surgery/Procedure: 15:17 <Chris Smith - Last Filed: 02/12/18 15:40> Surgeon's Initial Post Op Note - Surgeon's Notes Estimated Blood Loss: EBL {In ML}: 20
[2018-02-12] MEDS ORDERED: Oxycodone/Acetaminophen 5/325 mg Tab PO PRN ×2 (15:19)
[2018-02-12] MEDS ORDERED: DiphenhydrAMINE 50 mg/ml Inj IVP PRN (15:22)
[2018-02-12] MEDS ORDERED: Dexamethasone 4 mg/1 ml IVP PRN (15:22)
[2018-02-12] MEDS ORDERED: Propofol 10 mg/ml Inj (20 ML) ONE (15:30)
[2018-02-12] MEDS ORDERED: Sodium Chloride 0.9% 1,000 ML IV SCH (15:30)
[2018-02-12] MEDS: Lactated Ringer's 1,000 ML IV SCH ×2 (17:44→22:50)
[2018-02-13 06:43] LABS: BASO % 0.2 % (0.0-2.0); HEMOGLOBIN 9.2 g/dL (12.0-16.0); LYMPH # 1.2 K/uL (1.0-4.3); LYMPH % 10.7 % (20.0-40.0); MEAN CELL VOLUME 75.7 fl (81.0-99.0); MEAN CORPUSCULAR HEMOGLOBIN 23.5 pg (27.0-31.0); MEAN PLATELET VOLUME 7.2 fl (7.2-11.7); MONO # 0.6 K/uL (0.0-0.8); MONO % 5.6 % (0.0-10.0); NEUT # 9.4 K/uL (1.8-7.0); NEUT % 83.5 % (50.0-75.0); RBC 3.9 Mil/uL (3.80-5.20); RED CELL DISTRIBUTION WIDTH 16.4 % (11.5-14.5); WHITE BLOOD COUNT 11.3 K/uL (4.8-10.8)
[2018-02-13] MEDS: Lactated Ringer's 1,000 ML IV SCH (07:00)
[2018-02-13 07:06] LABS: ALB/GLOB RATIO 1.2 (1.0-2.1); ALBUMIN 3.4 g/dL (3.5-5.0); ALT/SGPT 40 U/L (9-52); AST/SGOT 28 U/L (14-36); BLOOD UREA NITROGEN < 2 mg/dl (7-17); CALCIUM 9.1 mg/dL (8.4-10.2); GFR NON-AFRICAN AMERICAN > 60
--- NOTE | 2018-02-13 08:22 | OP ---
Copied To: Chris Smith MD Attending MD: Chris Smith MD PROCEDURE DATE: 02/12/18 PREOPERATIVE DIAGNOSIS: Cholecystitis. POSTOPERATIVE DIAGNOSIS: Cholecystitis. PROCEDURE: Laparoscopic cholecystectomy. SURGEON: Chris Smith MD CROWN WHEEL ASSEMBLER: Lisbeth Hood DO SECOND CROWN WHEEL ASSEMBLER: Rachel. ANESTHESIA: General endotracheal intubation. ANESTHESIOLOGIST: Dr. White. IV FLUIDS: Crystalloids ESTIMATED BLOOD LOSS: 20 mL. INTRAOPERATIVE FINDINGS: Cholecystitis, cholelithiasis. SPECIMEN: Gallbladder. BRIEF HISTORY: Ms. Andres is a very pleasant 37-year-old female who was initially seen by me in office and was diagnosed of symptomatic cholelithiasis, however, during the course of the past few days, the patient had developed severe right upper quadrant and epigastric abdominal pain and came to the hospital. Upon further investigation, the patient was found to have gallstones, and we will treat her with antibiotics and was taken to the operating room for above stated procedure. The risks and benefits of the procedure were explained to the patient with the patient having a full understanding of all the risks and benefits involved. Informed consent was obtained and the patient was taken to the operating room for above-stated procedure. DESCRIPTION OF PROCEDURE: The patient was brought into the operating room and placed supine on the operating room table. Bilateral Flowtron boots were applied to the patient's lower extremities. After successful induction of anesthesia and successful endotracheal intubation by the anesthesia team, the patient's abdomen was prepped with ChloraPrep stick and draped in a standard surgical fashion. Prior to the beginning of the procedure, time-out was called in the room and everyone in the room were in agreement. Using the Veress needle, the patient's abdomen was entered at the umbilicus, and pneumoperitoneum was achieved with good opening pressures. Once this was accomplished, using 11-blade scalpel knife, approximately 1-cm incision was made in the umbilicus in a longitudinal fashion. Subsequent to that, an 11-mm trocar was introduced into the patient's abdomen. At that point in time, a 5-mm 0-degree scope was introduced into the patient's abdomen and abdomen was inspected. Immediately we are able to visualize the gallbladder with some omental adhesions. Then attention was turned to the subxiphoid area. Using 11-blade scalpel knife, approximately 5-mm incision was made in a transverse fashion. Subsequent to that, 5-mm trocar was introduced into the patient's abdomen in a subxiphoid area. Then attention was turned to the right side of the patient's abdomen. Using 11-blade scalpel knife, two 5-mm incisions were made on the right side of the patient's abdomen with a 11-blade scalpel knife in a transverse fashion. Subsequent to that, another two 5-mm trocars were introduced into the patient's abdomen. At this point in time, gallbladder was grasped to the fundus in a Curtis's pouch, and using [place] dissector, cystic duct and cystic artery were dissected out, and a critical view of safety was achieved. At this point in time, cystic duct was clipped with two clips proximal, one distal and transected with laparoscopic scissor. Same thing was done for the cystic artery. It was clipped with two clips proximal, one distal, and transected with laparoscopic scissor. Upon further dissection, we encountered the serial branch of the cystic artery that was dissected out with [place] dissector, clipped with two clips proximal and distal, and transected with laparoscopic scissor. At this point in time, gallbladder was dissected off the gallbladder fossa using hook electrical cautery. Once the gallbladder was completely freed up from the gallbladder fossa, EndoCatch bag was introduced into the patient's abdomen. Gallbladder was placed inside of the bag, and the bag was closed. At this point in time, gallbladder fossa was inspected for hemostasis. Hemostasis was confirmed, so at this point in time, gallbladder fossa and abdominal cavity were copiously irrigated with sterile saline and the fluid was suctioned out. Once this was accomplished, an 11-mm trocar together with EndoCatch bag and gallbladder were removed from the patient's abdomen and passed off to the [facility] as a specimen. Fascial layer at the umbilical port site was closed with one interrupted 0 Vicryl suture and UR-6 needle. Subsequent to that, the patient's abdomen was fully desufflated. The rest of the trocars were removed from the patient's abdomen, and skin was closed with a 4-0 Monocryl suture in a running subcuticular fashion. At the end of the procedure, incision sites were infiltrated with Marcaine anesthetic. The patient's abdomen was washed and dried, and a Dermabond was applied to the site of the incisions. The patient was successfully extubated by the anesthesia team, transferred to a stretcher, and taken to the recovery room in a stable condition. At the end of the procedure, all instrument counts, needles, and sponges were correct. Chris Smith MD
[2018-02-13] MEDS: Magnesium Sulfate 1 GM in Dextrose 5% In Water 100 ML IV SCH ×2 (09:38→11:01)
[2018-02-13 13:01] VITALS: BP 110/80; PULSE 92; RESP 18; TEMP 99.1; O2SAT 100
== END 2018-02-13 14:35 | disposition home or self-care (01) | DRG 419 ==
LOC: H.ER 06:42 → H.ERHOLD 10:30 → H.PEDS 12:55
PROVIDERS: ADMIT Internal Medicine; ATTEND Internal Medicine
PROC: 0FT44ZZ Resection of Gallbladder, Percutaneous Endoscopic Approach (ICD-10-PCS; principal; 2018-02-12 11:30)
DX: K80.10 Calculus of gallbladder with chronic cholecystitis without obstruction (principal); E03.9 Hypothyroidism, unspecified

== ENCOUNTER 2018-02-19 07:21 | Inpatient (IN) | payer BC ==
[2018-02-19 07:27] VITALS: BMI 26.4
--- NOTE | 2018-02-19 08:00 | ED PDOC ---
HPI: Abdomen History Per: Patient History/Exam Limitations: language barrier (palauan speaking) Onset/Duration Of Symptoms: Hrs Current Symptoms Are (Timing): Intermittent Episodes Severity: Severe Pain Scale Rating Of: 8 Location Of Pain/Discomfort: RUQ Quality Of Discomfort: Pressure Associated Symptoms: Chills, Nausea, Vomiting. denies: Fever Alleviating Factors: Other (PO meds, mild ) Last Bowel Movement: Today Additional History Per: Patient, Family <Zara Hickey - Last Filed: 02/19/18 15:06> <Srikanth Lamb - Last Filed: 02/22/18 15:28> Time Seen by Provider: 02/19/18 07:51 Chief Complaint (Nursing): Abdominal Pain Additional Complaint(s): CC: abdominal pain HPI: 37 YO Female with PMHx of hypothyroidism, presents to [facility] ED for abdominal pain. Pt states that the pain started yesterday evening, and has remained since onset. Pain is located in the RUQ per pt, described as pressure/ cramping like, no radiation of the pain, severe, associated with nausea, emesis (NBNB) and chills overnight. Of note, pt states that she was recently admitted to the hospital and underwent a lap zack, POD 7. Pt is Anguillan speaking, Voyce used for translation [id number] PMD: Dr. Soto PMHx: hypothyroidism PSHx: Appendectomy, x 2, Lap zack SHx: No tobacco, alcohol or rec drugs Allergies: Penicillins Medications: Levothyroxine 25mcg and PNV. (Zara Hickey) Supervising Attending Note - Supervising Attending Note The Documented history was done by the: Physician Hot Bread Baker, Attending Physician The documented physical exam was done by the: Physician Hot Bread Baker, Attending Physician The documented procedures were done by the: Physician Hot Bread Baker, Attending Physician EM CAVEAT: Acuity of Condition - Attestation: I have personally seen and examined this patient.: Yes I have fully participated in the care of the patient.: Yes I have reviewed all pertinent clinical information: Yes <Srikanth Lamb - Last Filed: 02/22/18 15:28> Past Medical History - Medical History PMH: Gall Bladder Disease, Hypothyroidism Denies: HIV, Chronic Kidney Disease - Surgical History Surgical History: Appendectomy, Cholecystectomy, - Family History Family History: States: Unknown Family Hx - Immunization History Hx Tetanus Toxoid Vaccination: No Hx Influenza Vaccination: No Hx Pneumococcal Vaccination: No <Zara Hickey - Last Filed: 02/19/18 15:06> Reviewed: Historical Data, Nursing Documentation, Vital Signs <Srikanth Lamb - Last Filed: 02/22/18 15:28> Vital Signs: Last Vital Signs Temp 98.5 F 02/22/18 09:58 Pulse 68 02/22/18 09:58 Resp 18 02/22/18 09:58 BP 97/56 L 02/22/18 09:58 Pulse Ox 96 02/22/18 09:58 - Home Medications Home Medications: Ambulatory Orders Medication Instructions Recorded Ethinyl Estradiol/Drospirenone 1 tab PO DAILY 02/19/18 [Gianvi 3 mg-0.02 mg Tablet] Levothyroxine [Synthroid] 75 mcg PO DAILY 02/19/18 oxyCODONE/Acetaminophen [Percocet 1 tab PO Q4 PRN 02/19/18 5/325 mg Tab] - Allergies Allergies/Adverse Reactions: Allergies Allergy/AdvReac Type Severity Reaction Status Date / Time Penicillins Allergy RASH Verified 02/10/18 07:00 Review of Systems Constitutional: Positive for: Chills. Negative for: Fever Cardiovascular: Negative for: Chest Pain, Palpitations Respiratory: Negative for: Cough, Shortness of Breath Gastrointestinal: Positive for: Nausea, Vomiting, Abdominal Pain. Negative for : Diarrhea, Constipation Genitourinary Female: Negative for: Dysuria, Hematuria <Zara Hickey - Last Filed: 02/19/18 15:06> ROS Statement: Except As Marked, All Systems Reviewed And Found Negative <QueerikaKassandrasindi Coral - Last Filed: 02/22/18 15:28> Physical Exam - Physical Exam Appears: Positive for: Uncomfortable Skin: Positive for: Normal Color Eye Exam: Positive for: EOMI Cardiovascular/Chest: Positive for: Regular Rate, Rhythm, Murmur Respiratory: Positive for: Normal Breath Sounds. Negative for: Wheezing Gastrointestinal/Abdominal: Positive for: Soft, Tenderness (tenderness to palaption of the marv-umbilical area), Distended (obese ). Negative for: Guarding, Rebound Extremity: Positive for: Normal ROM Neurologic/Psych: Positive for: Alert <Zara Hickey - Last Filed: 02/19/18 15:06> - Reviewed Nursing Documentation Reviewed: Yes Vital Signs Reviewed: Yes - Physical Exam Appears: Positive for: Non-toxic <Srikanth Lamb - Last Filed: 02/22/18 15:28> - Laboratory Results Result Diagrams: 02/19/18 08:00 02/19/18 08:00 - ECG O2 Sat by Pulse Oximetry: 98 <Zara Hickey - Last Filed: 02/19/18 15:06> - Laboratory Results Result Diagrams: 02/22/18 06:25 02/22/18 06:25 <Srikanth Lamb - Last Filed: 02/22/18 15:28> - Progress ED Course And Treament: 37 YO Female with abdominal pain, POD7 lap zack. Tachycardia, afebrile -cbc, cmp, bcx, lipase, VBG -UA, Upreg -EKG -Ct abd and pelv PO and IV contrast -Morphine, Protonix, Zofran, IVF -Surgery consult 1023--pt seen and reevaluated. Pt states that pain has improved since IV meds Spoke to Surgery resident, will eval pt Blood work reviewed with pt; sig for leukocytosis, thrombocytosis, elevated liver enzymes, lactic acid Ct abd and pelvis pending -will give more IVF (3L ordered) -IV abx (mexapime and Metro) -repeat VBG in 2 hrs 1050--pt seen by Dr. Smith, waiting for CT abdomen, admit IMPRESSION: 3.8 cm segment of asymmetric wall thickening of the proximal transverse colon worrisome for apple-core lesion. Colon proximal to this segment is fluid filled and dilated; colon distal to this segment is decompressed. Small bowel loops appear fluid filled and dilated with appearance concerning for obstruction. Malignant neoplasm must be excluded. Considered less likely are infectious or inflammatory etiologies. Correlate clinically including colonoscopy as indicated. 14:50--case discussed with Surgery resident. Will keep pt NPO and admit. No NGT for now Repeat lactic acid 2.4 down from 3.7 Plan discussed with pt, she agrees (Zara Hickey) Medical Decision Making <Zara Hickey - Last Filed: 02/19/18 15:06> <Srikanth Lamb - Last Filed: 02/22/18 15:28> Medical Decision Makin Case is discussed with Dr Smith. Agrees with the management. (Srkianth Lamb) Disposition - Patient ED Disposition Is Patient to be Admitted: Yes - Disposition Disposition Time: 15:08 <Zara Hickey - Last Filed: 02/19/18 15:06> Discussed With Dr.: Khai Tejeda Doctor Will See Patient In The: Hospital Counseled Patient/Family Regarding: Studies Performed, Diagnosis - Pt Status Changed To: Hospital Disposition Of: Inpatient - Admit Certification Admit to Inpatient:: After my assessment, the patient will require hospitalization for at least two midnights. This is because of the severity of symptoms shown, intensity of services needed, and/or the medical risk in this patient being treated as an outpatient. - POA Present On Arrival: None <Srikanth Lamb - Last Filed: 02/22/18 15:28> - Clinical Impression Clinical Impression: SIRS (systemic inflammatory response syndrome), SBO (small bowel obstruction) - Disposition Condition: FAIR
[2018-02-19] MEDS ORDERED: Iohexol 240 (50 ml) PO ONE (08:34)
[2018-02-19] MEDS ORDERED: Sodium Chloride 0.9% 1,000 ML IV SCH ×4 (08:45→11:45)
[2018-02-19] MEDS ORDERED: Iohexol 240 (50 ml) ONE (08:46)
[2018-02-19 08:48] LABS: BASO % 0.2 % (0.0-2.0); HEMOGLOBIN 13.1 g/dL (12.0-16.0); LYMPH # 0.8 K/uL (1.0-4.3); LYMPH % 5.5 % (20.0-40.0); MEAN CELL VOLUME 74.8 fl (81.0-99.0); MEAN CORPUSCULAR HGB CONC 32.1 g/dL (33.0-37.0); MEAN PLATELET VOLUME 7.3 fl (7.2-11.7); MONO # 0.4 K/uL (0.0-0.8); MONO % 2.8 % (0.0-10.0); NEUT % 91.5 % (50.0-75.0); NRBC % 0.1 % (0.0-0.0); RBC 5.45 Mil/uL (3.80-5.20); RED CELL DISTRIBUTION WIDTH 16.6 % (11.5-14.5); WHITE BLOOD COUNT 15.3 K/uL (4.8-10.8)
[2018-02-19 08:55] LABS: PLATELET COUNT 688 K/uL (130-400)
[2018-02-19 09:13] LABS: ALB/GLOB RATIO 1.2 (1.0-2.1); ALBUMIN 5.3 g/dL (3.5-5.0); ALT/SGPT 119 U/L (9-52); AST/SGOT 176 U/L (14-36); BLOOD UREA NITROGEN 13 mg/dl (7-17); GFR NON-AFRICAN AMERICAN > 60; LIPASE 131 U/L (23-300)
--- NOTE | 2018-02-19 09:15 | CARD ---
APPROVED REPORT Date of service: 02/19/2018 EKG Measurement Heart [id number] <Conclusion> Normal sinus rhythm NT wave abnormality abnormal ECG
[2018-02-19 09:58] LABS: VENOUS BLOOD GAS BASE EXCESS -3.9 mmol/L (0.0-2.0); VENOUS BLOOD GAS PCO2 51 mmHg (40-60); VENOUS BLOOD GAS PO2 15 mm/Hg (30-55); VENOUS BLOOD PH 7.27 (7.32-7.43)
[2018-02-19] MEDS ORDERED: Cefepime 2 GM in Sodium Chloride 0.9% 100 ML IVPB STA (10:02)
[2018-02-19] MEDS ORDERED: metroNIDAZOLE 500mg/100ml NS 100 ML IVPB STA (10:03)
[2018-02-19] MEDS ORDERED: Sodium Chloride 0.9% 1,000 ML IV STA (10:05)
--- NOTE | 2018-02-19 10:15 | CP.PCM.CON ---
<HerreraLucas - Last Filed: 02/19/18 10:15> Past Patient History - Infectious Disease Hx of Infectious Diseases: None - Past Medical History & Family History Past Medical History?: Yes - Past Social History Smoking Status: Never Smoked - CARDIAC Hx Cardiac Disorders: No - PULMONARY Hx Respiratory Disorders: No - NEUROLOGICAL Hx Neurological Disorder: No - HEENT Hx HEENT Problems: No - RENAL Hx Chronic Kidney Disease: No - ENDOCRINE/METABOLIC Hx Hypothyroidism: Yes - HEMATOLOGICAL/ONCOLOGICAL Hx Human Immunodeficiency Virus (HIV): No - INTEGUMENTARY Hx Dermatological Problems: No - MUSCULOSKELETAL/RHEUMATOLOGICAL Hx Musculoskeletal Disorders: No Hx Falls: No - GASTROINTESTINAL Hx Gall Bladder Disease: Yes - GENITOURINARY/GYNECOLOGICAL Other/Comment: Uterine fibroids - PSYCHIATRIC Hx Psychophysiologic Disorder: No Hx Substance Use: No - SURGICAL HISTORY Hx Appendectomy: Yes Hx Cholecystectomy: Yes - ANESTHESIA Hx Anesthesia: Yes Hx Anesthesia Reactions: No Hx Malignant Hyperthermia: No Meds Allergies/Adverse Reactions: Allergies Allergy/AdvReac Type Severity Reaction Status Date / Time Penicillins Allergy RASH Verified 02/10/18 07:00 - Medications Medications: Current Medications Sodium Chloride (Sodium Chloride 0.9%) 1,000 mls @ 999 mls/hr IV .Q1H1M DIVYA Stop: 02/20/18 09:20 Metronidazole (Flagyl 500mg/100ml Ns) 100 mls @ 100 mls/hr IVPB STAT STA PRN Reason: Protocol Stop: 02/19/18 11:02 Cefepime HCl 2 gm/ Sodium (Chloride) 100 mls @ 100 mls/hr IVPB STAT STA PRN Reason: Protocol Stop: 02/19/18 11:01 Sodium Chloride (Sodium Chloride 0.9%) 1,000 mls @ 1,000 mls/hr IV .Q1H STA Stop: 02/19/18 11:04 Last Admin: 02/19/18 10:00 Dose: 1,000 mls/hr Results - Vital Signs Recent Vital Signs: Last Vital Signs Temp 97.5 F L 02/19/18 10:11 Pulse 107 H 02/19/18 10:11 Resp 20 02/19/18 10:11 BP 120/78 02/19/18 10:11 Pulse Ox 97 02/19/18 10:11 - Labs Result Diagrams: 02/19/18 08:00 02/19/18 08:00 Labs: Laboratory Results - last 24 hr 02/19/18 02/19/18 02/19/18 08:00 08:00 09:28 WBC 15.3 H RBC 5.45 H Hgb 13.1 D Hct 40.8 MCV 74.8 L MCH 24.0 L MCHC 32.1 L RDW 16.6 H Plt Count 688 H D MPV 7.3 Neut % (Auto) 91.5 H Lymph % (Auto) 5.5 L [place] % (Auto) 2.8 Eos % (Auto) 0.0 Baso % (Auto) 0.2 Neut # (Auto) 14.0 H Lymph # (Auto) 0.8 L [place] # (Auto) 0.4 Eos # (Auto) 0.0 Baso # (Auto) 0.0 pO2 15 L VBG pH 7.27 L VBG pCO2 51 VBG HCO3 19.8 VBG Total CO2 25.0 VBG O2 Sat (Calc) 18.3 L VBG Base Excess -3.9 L VBG Potassium 5.6 H Glucose 192 H Lactate 3.7 H FiO2 21.0 Sodium 135 133.0 Potassium 4.6 Chloride 93 L 100.0 Carbon Dioxide 20 L Anion Gap 27 H BUN 13 Creatinine 0.8 Est GFR ( Amer) > 60 Est GFR (Non-Af Amer) > 60 Random Glucose 253 H Calcium 11.0 H Total Bilirubin 0.8 AST 176 H D ALT 119 H D Alkaline Phosphatase 156 H D Total Protein 9.9 H Albumin 5.3 H D Globulin 4.5 H Albumin/Globulin Ratio 1.2 Lipase 131 Serum HCG, Qual Negative Venous Blood Potassium 5.6 H <Chris Smith - Last Filed: 02/19/18 11:53> History of Present Illness - History of Present Illness History of Present Illness: 37 y.o. female s/p Laparoscopic cholecystectomy last week comes back to the hospital c/o abdominal pain that stated yesterday. Patient states that she was fine after the surgery but everything states yesterday. Reports chills, multiple episodes of vomiting and abdominal pain. Passing flatus and having normal bowel movements. Denies any urinary symptoms. No change in stool or urine color. No other complains at present time. Review of Systems - Constitutional Constitutional: As Per HPI - EENT Eyes: Other (unremarkable) Ears: Other (unremarkable) Nose/Mouth/Throat: Other (unremarkable) - Breasts Breasts: Other (unremarkable) - Cardiovascular Cardiovascular: Other (unremarkable) - Respiratory Respiratory: Other (unremarkable) - Gastrointestinal Gastrointestinal: As Per HPI - Genitourinary Genitourinary: As Per HPI - Reproductive: Female Reproductive:Female: Other (unremarkable) - Musculoskeletal Musculoskeletal: Other (unremarkable) - Integumentary Integumentary: Other (unremarkable) - Neurological Neurological: Other (unremarkable) - Psychiatric Psychiatric: Other (unremarkable) - Endocrine Endocrine: Other (unremarkable) - Hematologic/Lymphatic Hematologic: Other (unremarkable) Meds - Medications Medications: Current Medications Sodium Chloride (Sodium Chloride 0.9%) 1,000 mls @ 999 mls/hr IV .Q1H1M DIVYA Stop: 02/20/18 09:20 Sodium Chloride (Sodium Chloride 0.9%) 1,000 mls @ 100 mls/hr IV .Q10H DIVYA Stop: 02/20/18 11:38 Physical Exam - Constitutional Appears: Non-toxic, No Acute Distress - Head Exam Head Exam: ATRAUMATIC, NORMAL INSPECTION, NORMOCEPHALIC - Eye Exam Eye Exam: EOMI, Normal appearance, PERRL Pupil Exam: NORMAL ACCOMODATION, PERRL - ENT Exam ENT Exam: Mucous Membranes Moist, Normal Exam - Neck Exam Neck exam: Positive for: Full Rom, Normal Inspection - Respiratory Exam Respiratory Exam: Clear to Auscultation Bilateral, NORMAL BREATHING PATTERN - Cardiovascular Exam Cardiovascular Exam: Tachycardia, +S1, +S2 - GI/Abdominal Exam GI & Abdominal Exam: Normal Bowel Sounds, Soft Additional comments: Tender to palpation, ND, BS+, no rebound, no guarding, incisions clean, no erythema, no drainage, dermobond in place - Rectal Exam Rectal Exam: Deferred - Extremities Exam Extremities exam: Positive for: full ROM, normal inspection - Back Exam Back exam: NORMAL INSPECTION - Neurological Exam Neurological exam: Alert, CN II-XII Intact, Oriented x3 - Psychiatric Exam Psychiatric exam: Normal Affect, Normal Mood - Skin Skin Exam: Dry, Intact, Normal Color, Warm Results - Vital Signs Recent Vital Signs: Last Vital Signs Temp 97.5 F L 02/19/18 10:11 Pulse 107 H 02/19/18 10:11 Resp 20 02/19/18 10:11 BP 120/78 02/19/18 10:11 Pulse Ox 98 02/19/18 11:04 - Labs Result Diagrams: 02/19/18 08:00 02/19/18 08:00 Labs: Laboratory Results - last 24 hr 02/19/18 02/19/18 02/19/18 08:00 08:00 09:28 WBC 15.3 H RBC 5.45 H Hgb 13.1 D Hct 40.8 MCV 74.8 L MCH 24.0 L MCHC 32.1 L RDW 16.6 H Plt Count 688 H D MPV 7.3 Neut % (Auto) 91.5 H Lymph % (Auto) 5.5 L [place] % (Auto) 2.8 Eos % (Auto) 0.0 Baso % (Auto) 0.2 Neut # (Auto) 14.0 H Lymph # (Auto) 0.8 L [place] # (Auto) 0.4 Eos # (Auto) 0.0 Baso # (Auto) 0.0 Neutrophils % (Manual) 89 H Band Neutrophils % 3 H Lymphocytes % (Manual) 6 L Monocytes % (Manual) 2 Platelet Estimate Increased H Large Platelets Present Anisocytosis (manual) Slight Microcytosis (manual) Slight Tear Drop Cells Slight Ovalocytes Slight pO2 15 L VBG pH 7.27 L VBG pCO2 51 VBG HCO3 19.8 VBG Total CO2 25.0 VBG O2 Sat (Calc) 18.3 L VBG Base Excess -3.9 L VBG Potassium 5.6 H Glucose 192 H Lactate 3.7 H FiO2 21.0 Sodium 135 133.0 Potassium 4.6 Chloride 93 L 100.0 Carbon Dioxide 20 L Anion Gap 27 H BUN 13 Creatinine 0.8 Est GFR ( Amer) > 60 Est GFR (Non-Af Amer) > 60 Random Glucose 253 H Calcium 11.0 H Total Bilirubin 0.8 AST 176 H D ALT 119 H D Alkaline Phosphatase 156 H D Total Protein 9.9 H Albumin 5.3 H D Globulin 4.5 H Albumin/Globulin Ratio 1.2 Lipase 131 Serum HCG, Qual Negative Venous Blood Potassium 5.6 H Assessment & Plan - Assessment and Plan (Free Text) Assessment: 37 y.o. female s/p laparoscopic cholecystectomy now with abdominal pain and mildly elevated LFTs with leukocytosis Plan: - Keep NPO - IV fluid hydration - Pain control - Follow up CT scan ordered by ER department - Continue antibiotics - Admit to medical service - repeat labs in am - Will follow
[2018-02-19] MEDS ORDERED: metroNIDAZOLE 500mg/100ml NS 100 ML IVPB ONE (11:18)
[2018-02-19 11:29] LABS: BANDS 3 % (0-2); LYMPHOCYTE 6 % (20-50); MONOCYTE 2 % (0-10); NEUTROPHIL 89 % (42-75); PLATELET ESTIMATE INCREASED (NORMAL); TOTAL CELLS COUNTED 100
[2018-02-19 11:30] LABS: ANISOCYTOSIS SLIGHT
[2018-02-19 11:31] LABS: MICROCYTOSIS SLIGHT
[2018-02-19 11:32] LABS: LARGE PLATELETS PRESENT; OVALOCYTES SLIGHT; TEARDROP CELLS SLIGHT
[2018-02-19] MEDS ORDERED: Iohexol 300 50 ML ONE (12:06)
[2018-02-19] MEDS ORDERED: Sodium Chloride 0.9% 50 ML IV ONE (12:06)
[2018-02-19] MEDS ORDERED: Iohexol 300 100 ML IJ ONE (12:06)
[2018-02-19 13:17] LABS: VENOUS BLOOD GAS BASE EXCESS -3.7 mmol/L (0.0-2.0); VENOUS BLOOD GAS PCO2 42 mmHg (40-60); VENOUS BLOOD GAS PO2 44 mm/Hg (30-55); VENOUS BLOOD PH 7.33 (7.32-7.43)
[2018-02-19] MEDS ORDERED: Lactated Ringer's 1,000 ML IV SCH ×2 (14:15→14:45)
--- NOTE | 2018-02-19 14:51 | CT ---
PROCEDURE: CT Abdomen and Pelvis with oral and IV contrast. HISTORY: abdominal pain COMPARISON: Limited abdominal ultrasound performed 02/10/18, limited ultrasound performed 07/22/17 TECHNIQUE: Contiguous axial images of the abdomen and pelvis. Oral and IV contrast was administered. Coronal and Sagittal reformats generated and reviewed. Contrast dose: 95 cc Omnipaque 300 Radiation dose: Total exam DLP = 486.99 mGy-cm. This CT exam was performed using one or more of the following dose reduction techniques: Automated exposure control, adjustment of the mA and/or kV according to patient size, and/or use of iterative reconstruction technique. FINDINGS: LOWER THORAX: No visible consolidation, pleural effusion, or pneumothorax. Small contrast noted within the distal esophagus may be seen in the setting of gastroesophageal reflux. LIVER: Unremarkable. GALLBLADDER AND BILE DUCTS: Cholecystectomy. PANCREAS: Unremarkable. SPLEEN: Unremarkable. ADRENALS: Unremarkable. KIDNEYS AND URETERS: The kidneys enhance symmetrically. No hydronephrosis or obstructing renal calculus. BLADDER: The urinary bladder appears unremarkable. REPRODUCTIVE: Related heterogeneous uterus containing numerous low-density lesions at least 1 of which demonstrates evidence of thin peripheral calcifications, likely fibroids. APPENDIX: The appendix is not identified. No secondary signs appreciated to suggest acute appendicitis. BOWEL: The stomach is nondistended. 3.8 cm segment of asymmetric wall thickening of the proximal transverse colon. Colon proximal to this segment is fluid filled and dilated; colon distal to this segment is decompressed. Small bowel loops appear fluid filled and dilated with appearance concerning for obstruction. PERITONEUM: Small pelvic free fluid. No definite free air. LYMPH NODES: No bulky lymphadenopathy identified. VASCULATURE: No aortic aneurysm. BONES: No acute osseous abnormality is detected. OTHER FINDINGS: None. IMPRESSION: 3.8 cm segment of asymmetric wall thickening of the proximal transverse colon worrisome for apple-core lesion. Colon proximal to this segment is fluid filled and dilated; colon distal to this segment is decompressed. Small bowel loops appear fluid filled and dilated with appearance concerning for obstruction. Malignant neoplasm must be excluded. Considered less likely are infectious or inflammatory etiologies. Correlate clinically including colonoscopy as indicated. Cholecystectomy clips. Related heterogeneous uterus containing numerous low-density lesions at least 1 of which demonstrates evidence of thin peripheral calcifications, likely fibroids. Follow-up pelvic ultrasound may be considered. Findings discussed with Dr. Hickey on 02/19/18 at 2:29 p.m..
[2018-02-19] MEDS: Lactated Ringer's 1,000 ML IV SCH ×2 (16:45→22:51)
[2018-02-19] MEDS: Cefepime 2 GM in Sodium Chloride 0.9% 100 ML IVPB SCH (22:10)
[2018-02-20] MEDS: Lactated Ringer's 1,000 ML IV SCH ×5 (00:42→17:57)
--- NOTE | 2018-02-20 08:35 | CP.PCM.HP ---
<Bassam Ramos - Last Filed: 02/20/18 15:39> History of Present Illness - History of Present Illness History of Present Illness: 37 yo F with pmhx of hypothyroidism. Presented with abdominal pain. Pt is POD 8 for lap zack. Pain RUQ pressure, diffuse abdominal distension, 10/10 with nausea and vomiting. CT abdo and pelvis was completed while in ED. findings include: 3.8 cm segment of asymmetric wall thickening of proximal transverse colon. Concern for obstruction. pt was seen and evaluated by surgery. Pmhx: hypothyroid family hx: dm, htn surg: appendectomy, c/s, lap zack soc: denies smoking, alcohol, illicit drugs allergy to pencillin rx: levothyroxine Present on Admission - Present on Admission Any Indicators Present on Admission: No History of DVT/PE: No History of Uncontrolled Diabetes: No Urinary Catheter: No Decubitus Ulcer Present: No Review of Systems - Constitutional Constitutional: As Per HPI - Cardiovascular Cardiovascular: absent: Chest Pain - Respiratory Respiratory: absent: Dyspnea, Wheezing - Gastrointestinal Gastrointestinal: As Per HPI, Abdominal Pain Past Patient History - Infectious Disease Hx of Infectious Diseases: None - Past Medical History & Family History Past Medical History?: Yes - Past Social History Smoking Status: Never Smoked Alcohol: None Drugs: Denies - CARDIAC Hx Cardiac Disorders: No - PULMONARY Hx Respiratory Disorders: No - NEUROLOGICAL Hx Neurological Disorder: No - HEENT Hx HEENT Problems: No - RENAL Hx Chronic Kidney Disease: No - ENDOCRINE/METABOLIC Hx Endocrine Disorders: Yes Hx Hypothyroidism: Yes - HEMATOLOGICAL/ONCOLOGICAL Hx AIDS: No Hx Human Immunodeficiency Virus (HIV): No - INTEGUMENTARY Hx Dermatological Problems: No - MUSCULOSKELETAL/RHEUMATOLOGICAL Hx Musculoskeletal Disorders: No Hx Falls: No - GASTROINTESTINAL Hx Gall Bladder Disease: Yes - GENITOURINARY/GYNECOLOGICAL Hx Genitourinary Disorders: No Other/Comment: uterine fibroid - PSYCHIATRIC Hx Psychophysiologic Disorder: No Hx Substance Use: No - SURGICAL HISTORY Hx Appendectomy: Yes Hx Section: Yes (x2) Hx Cholecystectomy: Yes (s/p lap zack feb 12) - ANESTHESIA Hx Anesthesia: Yes Hx Anesthesia Reactions: No Hx Malignant Hyperthermia: No Meds Allergies/Adverse Reactions: Allergies Allergy/AdvReac Type Severity Reaction Status Date / Time Penicillins Allergy RASH Verified 02/10/18 07:00 Physical Exam - Constitutional Appears: In Acute Distress - Eye Exam Eye Exam: EOMI - ENT Exam ENT Exam: Mucous Membranes Moist - Respiratory Exam Respiratory Exam: Clear to Auscultation Bilateral, NORMAL BREATHING PATTERN. absent: Wheezes - Cardiovascular Exam Cardiovascular Exam: REGULAR RHYTHM, +S1, +S2 - GI/Abdominal Exam GI & Abdominal Exam: Distended, Guarding, Normal Bowel Sounds, Tenderness - Neurological Exam Neurological exam: Alert, CN II-XII Intact, Oriented x3 - Psychiatric Exam Psychiatric exam: Anxious Results - Vital Signs Recent Vital Signs: Last Vital Signs Temp 99.4 F 02/20/18 07:46 Pulse 87 02/20/18 07:46 Resp 20 02/20/18 07:46 BP 126/85 02/20/18 07:46 Pulse Ox 100 02/20/18 07:46 - Labs Result Diagrams: 02/20/18 09:53 02/20/18 09:58 Labs: Laboratory Results - last 24 hr 02/19/18 02/19/18 02/19/18 08:00 08:00 09:28 WBC 15.3 H RBC 5.45 H Hgb 13.1 D Hct 40.8 MCV 74.8 L MCH 24.0 L MCHC 32.1 L RDW 16.6 H Plt Count 688 H D MPV 7.3 Neut % (Auto) 91.5 H Lymph % (Auto) 5.5 L [place] % (Auto) 2.8 Eos % (Auto) 0.0 Baso % (Auto) 0.2 Neut # (Auto) 14.0 H Lymph # (Auto) 0.8 L [place] # (Auto) 0.4 Eos # (Auto) 0.0 Baso # (Auto) 0.0 Neutrophils % (Manual) 89 H Band Neutrophils % 3 H Lymphocytes % (Manual) 6 L Monocytes % (Manual) 2 Platelet Estimate Increased H Large Platelets Present Anisocytosis (manual) Slight Microcytosis (manual) Slight Tear Drop Cells Slight Ovalocytes Slight pO2 15 L VBG pH 7.27 L VBG pCO2 51 VBG HCO3 19.8 VBG Total CO2 25.0 VBG O2 Sat (Calc) 18.3 L VBG Base Excess -3.9 L VBG Potassium 5.6 H Glucose 192 H Lactate 3.7 H FiO2 21.0 Sodium 135 133.0 Potassium 4.6 Chloride 93 L 100.0 Carbon Dioxide 20 L Anion Gap 27 H BUN 13 Creatinine 0.8 Est GFR ( Amer) > 60 Est GFR (Non-Af Amer) > 60 Random Glucose 253 H Calcium 11.0 H Total Bilirubin 0.8 AST 176 H D ALT 119 H D Alkaline Phosphatase 156 H D Total Protein 9.9 H Albumin 5.3 H D Globulin 4.5 H Albumin/Globulin Ratio 1.2 Lipase 131 Serum HCG, Qual Negative Venous Blood Potassium 5.6 H 02/19/18 12:52 WBC RBC Hgb Hct MCV MCH MCHC RDW Plt Count MPV Neut % (Auto) Lymph % (Auto) [place] % (Auto) Eos % (Auto) Baso % (Auto) Neut # (Auto) Lymph # (Auto) [place] # (Auto) Eos # (Auto) Baso # (Auto) Neutrophils % (Manual) Band Neutrophils % Lymphocytes % (Manual) Monocytes % (Manual) Platelet Estimate Large Platelets Anisocytosis (manual) Microcytosis (manual) Tear Drop Cells Ovalocytes pO2 44 VBG pH 7.33 VBG pCO2 42 VBG HCO3 21.6 VBG Total CO2 23.4 VBG O2 Sat (Calc) 80.1 H VBG Base Excess -3.7 L VBG Potassium 4.3 Glucose 153 H Lactate 2.4 H FiO2 21.0 Sodium 133.0 Potassium Chloride 101.0 Carbon Dioxide Anion Gap BUN Creatinine Est GFR ( Amer) Est GFR (Non-Af Amer) Random Glucose Calcium Total Bilirubin AST ALT Alkaline Phosphatase Total Protein Albumin Globulin Albumin/Globulin Ratio Lipase Serum HCG, Qual Venous Blood Potassium 4.3 Assessment & Plan - Assessment and Plan (Free Text) Plan: 37 yo F with pmhx of hypothyroid admitted for abdominal pain s/p recent lap zack and findings on CT abdo pelvis requiring further evaluation. CT Abdo and pelvis reviewed -S/P LAP zack -GI consulted for possible colonoscopy: plan for tomorrow with fleet enema; NPO ; Repeat plain film. f/u cbc, cmp, viral hepatitis panel -Surgery on board -continue with current management -f/u blood culture -dvt prophylaxis SCD Case dw Dr. Nikhil Ramos MD PGY2 <Khai Tejeda - Last Filed: 02/22/18 13:48> Results - Vital Signs Recent Vital Signs: Last Vital Signs Temp 98.5 F 02/22/18 09:58 Pulse 68 02/22/18 09:58 Resp 18 02/22/18 09:58 BP 97/56 L 02/22/18 09:58 Pulse Ox 96 02/22/18 09:58 - Labs Result Diagrams: 02/22/18 06:25 02/22/18 06:25 Labs: Laboratory Results - last 24 hr 02/22/18 02/22/18 02/22/18 06:25 06:25 09:13 WBC 7.9 RBC 3.36 L Hgb 8.1 L Hct 25.1 L MCV 74.8 L MCH 24.1 L MCHC 32.2 L RDW 16.7 H Plt Count 409 H MPV 6.9 L Neut % (Auto) 75.0 Lymph % (Auto) 18.1 L [place] % (Auto) 5.4 Eos % (Auto) 1.4 Baso % (Auto) 0.1 Neut # (Auto) 5.9 Lymph # (Auto) 1.4 [place] # (Auto) 0.4 Eos # (Auto) 0.1 Baso # (Auto) 0.0 Sodium 135 Potassium 3.9 Chloride 99 Carbon Dioxide 27 Anion Gap 13 BUN 5 L Creatinine 0.6 L Est GFR ( Amer) > 60 Est GFR (Non-Af Amer) > 60 Random Glucose 68 Calcium 8.6 Ferritin 10.5 Total Bilirubin 0.4 AST 53 H D ALT 95 H Alkaline Phosphatase 67 Total Protein 5.6 L Albumin 3.1 L Globulin 2.5 Albumin/Globulin Ratio 1.3 Vitamin B12 273 Assessment & Plan - Assessment and Plan (Free Text) Plan: Patient was personally seen and examined by me in rounds with residents. Available labs and diagnostic data reviewed. Case, Patient's condition and management plan discussed with residents in rounds. Agree with resident's progress note. Plan: As ordered.
[2018-02-20] MEDS ORDERED: Oxycodone/Acetaminophen 5/325 mg Tab PO PRN (08:37)
[2018-02-20] MEDS: Cefepime 2 GM in Sodium Chloride 0.9% 100 ML IVPB SCH ×2 (08:39→21:11)
[2018-02-20] MEDS: Levothyroxine 75 MCG TAB PO SCH (08:40)
--- NOTE | 2018-02-20 09:14 | CP.PCM.CON ---
<Gamal Frank - Last Filed: 02/20/18 09:25> History of Present Illness - History of Present Illness History of Present Illness: PGY6 GI Fellow Consult Note Patient is a 37yo female with PMHx significant for hypothyroidism and cholelithiasis s/p cholecystectomy on 02/12/18 who presented to the ED with abdominal pain. Patient is 4 months . One week ago patient presented to the ED with RUQ abdominal pain, found to have gallstones and early cholecystitis on U/S thus she had laparoscopic cholecystectomy. Patient did well post-operatively and returned home but again developed intermittent episodes of RUQ/epigastric abdominal pain 1-2 days after D/C. She has had poor appetite and little to no oral intake for two days. Has not passed stool or flatus since Sunday (4 days prior to admission). As pain was severe and she developed nausea/vomiting at home, she came to the ED for evaluation. CT of the Abd/Pelvis with PO/IV contrast revealed a 3.8cm lesion in the transverse colon with obstruction. Denies any change in bowel habits prior to this past weekend and denies any hematochezia, melena. Admits to weight loss following her recent . No recent EtOH use, travel. 12 system ROS performed and negative except where stated PMHx: See HPI PSHx: 2 , appendectomy, cholecystectomy FHx: Mother at bedside denies any significant family history Social: Denies tobacco, EtOH or illicit drug use Endo: Admits to EGD one year ago - no record for review Past Patient History - Infectious Disease Hx of Infectious Diseases: None - Past Medical History & Family History Past Medical History?: Yes - Past Social History Smoking Status: Never Smoked - CARDIAC Hx Cardiac Disorders: No - PULMONARY Hx Respiratory Disorders: No - NEUROLOGICAL Hx Neurological Disorder: No - HEENT Hx HEENT Problems: No - RENAL Hx Chronic Kidney Disease: No - ENDOCRINE/METABOLIC Hx Endocrine Disorders: Yes Hx Hypothyroidism: Yes - HEMATOLOGICAL/ONCOLOGICAL Hx AIDS: No Hx Human Immunodeficiency Virus (HIV): No - INTEGUMENTARY Hx Dermatological Problems: No - MUSCULOSKELETAL/RHEUMATOLOGICAL Hx Musculoskeletal Disorders: No Hx Falls: No - GASTROINTESTINAL Hx Gall Bladder Disease: Yes - GENITOURINARY/GYNECOLOGICAL Hx Genitourinary Disorders: No Other/Comment: uterine fibroid - PSYCHIATRIC Hx Psychophysiologic Disorder: No Hx Substance Use: No - SURGICAL HISTORY Hx Appendectomy: Yes Hx Section: Yes (x2) Hx Cholecystectomy: Yes (s/p lap zack feb 12) - ANESTHESIA Hx Anesthesia: Yes Hx Anesthesia Reactions: No Hx Malignant Hyperthermia: No Meds Allergies/Adverse Reactions: Allergies Allergy/AdvReac Type Severity Reaction Status Date / Time Penicillins Allergy RASH Verified 02/10/18 07:00 - Medications Medications: Current Medications Sodium Chloride (Sodium Chloride 0.9%) 1,000 mls @ 999 mls/hr IV .Q1H1M [facility] Stop: 02/20/18 09:20 Cefepime HCl 2 gm/ Sodium (Chloride) 100 mls @ 100 mls/hr IVPB Q12 [facility] PRN Reason: Protocol Last Admin: 02/20/18 08:39 Dose: 100 mls/hr Lactated Ringer's (Lactated Ringer's) 1,000 mls @ 125 mls/hr IV .Q8H [facility] Last Admin: 02/20/18 08:42 Dose: 125 mls/hr Levothyroxine Sodium (Synthroid) 75 mcg PO DAILY@0630 [facility] Last Admin: 02/20/18 08:40 Dose: 75 mcg Morphine Sulfate (Morphine) 2 mg IVP Q4 PRN PRN Reason: Pain, severe (8-10) Last Admin: 02/20/18 00:37 Dose: 2 mg Ondansetron HCl (Zofran Inj) 4 mg IVP Q6 PRN PRN Reason: Nausea/Vomiting Oxycodone/Acetaminophen (Percocet 5/325 Mg Tab) 1 tab PO Q4 PRN PRN Reason: Pain, moderate (4-7) Stop: 02/23/18 08:38 Last Admin: 02/20/18 09:12 Dose: 1 tab Pantoprazole Sodium (Protonix Inj) 40 mg IVP DAILY [facility] Physical Exam - Constitutional Appears: Non-toxic, No Acute Distress - Eye Exam Eye Exam: EOMI, PERRL - ENT Exam ENT Exam: Mucous Membranes Moist - Respiratory Exam Respiratory Exam: Clear to Auscultation Bilateral. absent: Rales, Rhonchi, Wheezes - Cardiovascular Exam Cardiovascular Exam: Tachycardia, REGULAR RHYTHM, +S1, +S2 - GI/Abdominal Exam GI & Abdominal Exam: Distended, Guarding, Hypoactive Bowel Sounds, Soft, Tenderness (diffsuely, worst in RUQ, epigastric). absent: Firm, Organomegaly, Rigid Additional comments: healing laparoscopy surgical wounds - Extremities Exam Extremities exam: Positive for: normal inspection. Negative for: pedal edema - Neurological Exam Neurological exam: Alert, Oriented x3 - Psychiatric Exam Psychiatric exam: Normal Affect, Normal Mood - Skin Skin Exam: Dry, Warm Results - Vital Signs Recent Vital Signs: Last Vital Signs Temp 99.4 F 02/20/18 07:46 Pulse 87 02/20/18 07:46 Resp 20 02/20/18 07:46 BP 126/85 02/20/18 07:46 Pulse Ox 100 02/20/18 07:46 - Labs Result Diagrams: 02/19/18 08:00 02/19/18 08:00 Labs: Laboratory Results - last 24 hr 02/19/18 02/19/18 02/19/18 08:00 08:00 09:28 Neutrophils % (Manual) 89 H Band Neutrophils % 3 H Lymphocytes % (Manual) 6 L Monocytes % (Manual) 2 Platelet Estimate Increased H Large Platelets Present Anisocytosis (manual) Slight Microcytosis (manual) Slight Tear Drop Cells Slight Ovalocytes Slight pO2 15 L VBG pH 7.27 L VBG pCO2 51 VBG HCO3 19.8 VBG Total CO2 25.0 VBG O2 Sat (Calc) 18.3 L VBG Base Excess -3.9 L VBG Potassium 5.6 H Glucose 192 H Lactate 3.7 H FiO2 21.0 Sodium 135 133.0 Potassium 4.6 Chloride 93 L 100.0 Carbon Dioxide 20 L Anion Gap 27 H BUN 13 Creatinine 0.8 Est GFR ( Amer) > 60 Est GFR (Non-Af Amer) > 60 Random Glucose 253 H Calcium 11.0 H Total Bilirubin 0.8 AST 176 H D ALT 119 H D Alkaline Phosphatase 156 H D Total Protein 9.9 H Albumin 5.3 H D Globulin 4.5 H Albumin/Globulin Ratio 1.2 Lipase 131 Venous Blood Potassium 5.6 H 02/19/18 12:52 Neutrophils % (Manual) Band Neutrophils % Lymphocytes % (Manual) Monocytes % (Manual) Platelet Estimate Large Platelets Anisocytosis (manual) Microcytosis (manual) Tear Drop Cells Ovalocytes pO2 44 VBG pH 7.33 VBG pCO2 42 VBG HCO3 21.6 VBG Total CO2 23.4 VBG O2 Sat (Calc) 80.1 H VBG Base Excess -3.7 L VBG Potassium 4.3 Glucose 153 H Lactate 2.4 H FiO2 21.0 Sodium 133.0 Potassium Chloride 101.0 Carbon Dioxide Anion Gap BUN Creatinine Est GFR ( Amer) Est GFR (Non-Af Amer) Random Glucose Calcium Total Bilirubin AST ALT Alkaline Phosphatase Total Protein Albumin Globulin Albumin/Globulin Ratio Lipase Venous Blood Potassium 4.3 Assessment & Plan - Assessment and Plan (Free Text) Assessment: Patient is a 37yo female with PMHx significant for hypothyroidism and cholelithiasis s/p cholecystectomy on 02/12/18 who presented to the ED with abdominal pain. -Abdominal pain - concern for colonic obstruction -Abnormal CT imaging of the transverse colon -Elevated LFTs - hepatocellular pattern -Anion gap acidosis -S/P laparoscopic cholecystectomy Plan: -Case discussed with surgical service - plan to repeat plain film to evaluate contrast in bowel, determine level of obstruction -Recommend consideration of NGT; defer to surgical service -Concern for high grade obstruction or malignant lesion - consider surgical intervention in setting of complete obstruction vs colonoscopy prior to -Regarding colonoscopy, will be unable to adequately prep patient - limiting examination -Repeat CBC, CMP and trend - suspect level of hemoconcentration in setting of poor oral intake -Check acute viral hepatitis panel -LFT elevation differential includes viral etiologies, DILI (Percocet use at home), less likely biliary obstruction following cholecystectomy in absence of cholestatic picture Case discussed with Dr Fuller - Date & Time Date: 02/20/18 Time: 09:00 <Naldo Fuller - Last Filed: 02/20/18 19:26> Meds - Medications Medications: Current Medications Hydromorphone HCl (Dilaudid) 1 mg IVP Q4 PRN PRN Reason: Pain, severe (8-10) Hydromorphone HCl (Dilaudid) 0.5 mg IVP Q4 PRN PRN Reason: Pain, moderate (4-7) Cefepime HCl 2 gm/ Sodium (Chloride) 100 mls @ 100 mls/hr IVPB Q12 [facility] PRN Reason: Protocol Last Admin: 02/20/18 08:39 Dose: 100 mls/hr Lactated Ringer's (Lactated Ringer's) 1,000 mls @ 125 mls/hr IV .Q8H [facility] Last Admin: 02/20/18 17:57 Dose: 125 mls/hr Levothyroxine Sodium (Synthroid) 75 mcg PO DAILY@0630 [facility] Last Admin: 02/20/18 08:40 Dose: 75 mcg Ondansetron HCl (Zofran Inj) 4 mg IVP Q6 PRN PRN Reason: Nausea/Vomiting Pantoprazole Sodium (Protonix Inj) 40 mg IVP DAILY [facility] Last Admin: 02/20/18 09:15 Dose: 40 mg Results - Vital Signs Recent Vital Signs: Last Vital Signs Temp 97.7 F 02/20/18 16:15 Pulse 77 02/20/18 16:15 Resp 18 02/20/18 16:15 BP 106/70 02/20/18 16:15 Pulse Ox 99 02/20/18 16:15 - Labs Result Diagrams: 02/20/18 09:53 02/20/18 09:58 Labs: Laboratory Results - last 24 hr 02/20/18 02/20/18 02/20/18 09:53 09:53 09:58 WBC 6.6 D RBC 3.83 Hgb 9.0 L D Hct 28.3 L MCV 73.9 L MCH 23.5 L MCHC 31.8 L RDW 16.6 H Plt Count 458 H D MPV 6.8 L Neut % (Auto) 61.8 Lymph % (Auto) 25.9 [place] % (Auto) 11.4 H Eos % (Auto) 0.6 Baso % (Auto) 0.3 Neut # (Auto) 4.1 Lymph # (Auto) 1.7 [place] # (Auto) 0.7 Eos # (Auto) 0.0 Baso # (Auto) 0.0 Sodium 133 Potassium 4.4 Chloride 101 Carbon Dioxide 24 Anion Gap 12 BUN 6 L Creatinine 0.5 L Est GFR ( Amer) > 60 Est GFR (Non-Af Amer) > 60 Random Glucose 103 Hemoglobin A1c 5.7 Calcium 9.0 Total Bilirubin 0.5 AST 78 H D ALT 90 H D Alkaline Phosphatase 85 Total Protein 6.4 Albumin 3.4 L D Globulin 2.9 Albumin/Globulin Ratio 1.2 Acetaminophen Hepatitis A IgM Ab Hep Bs Antigen Hep B Core IgM Ab Hepatitis C Antibody 02/20/18 02/20/18 09:58 09:58 WBC RBC Hgb Hct MCV MCH MCHC RDW Plt Count MPV Neut % (Auto) Lymph % (Auto) [place] % (Auto) Eos % (Auto) Baso % (Auto) Neut # (Auto) Lymph # (Auto) [place] # (Auto) Eos # (Auto) Baso # (Auto) Sodium Potassium Chloride Carbon Dioxide Anion Gap BUN Creatinine Est GFR ( Amer) Est GFR (Non-Af Amer) Random Glucose Hemoglobin A1c Calcium Total Bilirubin AST ALT Alkaline Phosphatase Total Protein Albumin Globulin Albumin/Globulin Ratio Acetaminophen < 10.0 L Hepatitis A IgM Ab Negative Hep Bs Antigen Negative Hep B Core IgM Ab Negative Hepatitis C Antibody Negative Assessment & Plan - Assessment and Plan (Free Text) Plan: Case discussed [facility] GI fellow, neurosurgical nurse, and patient examined. CT concerning for partial obstruction proximal transverse colon. Colonoscopy tomorrow with prep c/o tap water enemas.
[2018-02-20 09:57] LABS: BASO % 0.3 % (0.0-2.0); EOS % 0.6 % (0.0-4.0); LYMPH # 1.7 K/uL (1.0-4.3); LYMPH % 25.9 % (20.0-40.0); MEAN CELL VOLUME 73.9 fl (81.0-99.0); MEAN CORPUSCULAR HEMOGLOBIN 23.5 pg (27.0-31.0); MEAN CORPUSCULAR HGB CONC 31.8 g/dL (33.0-37.0); MEAN PLATELET VOLUME 6.8 fl (7.2-11.7); MONO # 0.7 K/uL (0.0-0.8); MONO % 11.4 % (0.0-10.0); NEUT # 4.1 K/uL (1.8-7.0); NEUT % 61.8 % (50.0-75.0); NRBC % 0.1 % (0.0-0.0); RBC 3.83 Mil/uL (3.80-5.20); RED CELL DISTRIBUTION WIDTH 16.6 % (11.5-14.5); WHITE BLOOD COUNT 6.6 K/uL (4.8-10.8)
[2018-02-20 10:14] LABS: ALB/GLOB RATIO 1.2 (1.0-2.1); ALBUMIN 3.4 g/dL (3.5-5.0); ALT/SGPT 90 U/L (9-52); AST/SGOT 78 U/L (14-36); BLOOD UREA NITROGEN 6 mg/dl (7-17); GFR NON-AFRICAN AMERICAN > 60
--- NOTE | 2018-02-20 11:37 | CP.PCM.PN ---
<April Street Renate - Last Filed: 02/20/18 11:40> Subjective - Date & Time of Evaluation Date of Evaluation: 02/20/18 Time of Evaluation: 11:34 - Subjective Subjective: General Surgery Pt seen and examined this AM with Dr. Smith. Pt reports having a lot of abdominal pain and doesn't feel like the pain medications are adequate. She also c/o nausea with (-) vomiting today. (-) flatus. LBM: 02/16/18. Discussed results of CT scan with pt and family present. Labs and vitals noted. Trends shows improvement in LFTs PE Gen: Pt sitting in bed in mild distress Skin: warm and dry Abd: Soft, (+) tenderness to epigastric region and RUQ A/P Colon lesion/ r/o obstruction KUB shows contrast in rectum, pt is not fully obstructed. Plan for colonoscopy tomorrow, as discussed with Dr. Fuller this AM. Prefer fleet enemas for bowel prep, as PO route may cause perforation NPO Pain medication adjusted to help meet pt's needs IVF Objective - Vital Signs/Intake and Output Vital Signs (last 24 hours): Temp Pulse Resp BP Pulse Ox 99.4 F 87 20 126/85 100 02/20/18 07:46 02/20/18 07:46 02/20/18 07:46 02/20/18 07:46 02/20/18 07:46 - Medications Medications: Current Medications Hydromorphone HCl (Dilaudid) 1 mg IVP Q4 PRN PRN Reason: Pain, severe (8-10) Hydromorphone HCl (Dilaudid) 0.5 mg IVP Q4 PRN PRN Reason: Pain, moderate (4-7) Cefepime HCl 2 gm/ Sodium (Chloride) 100 mls @ 100 mls/hr IVPB Q12 [facility] PRN Reason: Protocol Last Admin: 02/20/18 08:39 Dose: 100 mls/hr Lactated Ringer's (Lactated Ringer's) 1,000 mls @ 125 mls/hr IV .Q8H [facility] Last Admin: 02/20/18 08:42 Dose: 125 mls/hr Levothyroxine Sodium (Synthroid) 75 mcg PO DAILY@0630 [facility] Last Admin: 02/20/18 08:40 Dose: 75 mcg Ondansetron HCl (Zofran Inj) 4 mg IVP Q6 PRN PRN Reason: Nausea/Vomiting Pantoprazole Sodium (Protonix Inj) 40 mg IVP DAILY [facility] Last Admin: 02/20/18 09:15 Dose: 40 mg - Labs Labs: 02/20/18 09:53 02/20/18 09:58 <Chris Smith - Last Filed: 02/20/18 11:52> Subjective - Subjective Subjective: Patient was seen and examined at the bedside. Agree with note above. Objective - Vital Signs/Intake and Output Vital Signs (last 24 hours): Temp Pulse Resp BP Pulse Ox 99.4 F 87 20 126/85 100 02/20/18 07:46 02/20/18 07:46 02/20/18 07:46 02/20/18 07:46 02/20/18 07:46 - Medications Medications: Current Medications Hydromorphone HCl (Dilaudid) 1 mg IVP Q4 PRN PRN Reason: Pain, severe (8-10) Hydromorphone HCl (Dilaudid) 0.5 mg IVP Q4 PRN PRN Reason: Pain, moderate (4-7) Cefepime HCl 2 gm/ Sodium (Chloride) 100 mls @ 100 mls/hr IVPB Q12 [facility] PRN Reason: Protocol Last Admin: 02/20/18 08:39 Dose: 100 mls/hr Lactated Ringer's (Lactated Ringer's) 1,000 mls @ 125 mls/hr IV .Q8H [facility] Last Admin: 02/20/18 08:42 Dose: 125 mls/hr Levothyroxine Sodium (Synthroid) 75 mcg PO DAILY@0630 [facility] Last Admin: 02/20/18 08:40 Dose: 75 mcg Ondansetron HCl (Zofran Inj) 4 mg IVP Q6 PRN PRN Reason: Nausea/Vomiting Pantoprazole Sodium (Protonix Inj) 40 mg IVP DAILY [facility] Last Admin: 02/20/18 09:15 Dose: 40 mg - Labs Labs: 02/20/18 09:53 02/20/18 09:58
--- NOTE | 2018-02-20 13:52 | RAD ---
Date of service: 02/20/2018 HISTORY: evaluate contrast progression, r/o obstruction COMPARISON: February 19, 2018. CT abdomen and pelvis. FINDINGS: BOWEL: No evidence of obstruction or free air. Contrast identified in distended right jackelin colon and decompress left hemicolon. BONES: Normal. OTHER FINDINGS: None. IMPRESSION: No evidence of mechanical obstruction or free air.
[2018-02-20] MEDS ORDERED: Magnesium Citrate Oral SOL (300 ml) PO ONE (14:40)
[2018-02-20 15:58] LABS: HEPATITIS B SURFACE AG Negative (NEGATIVE)
[2018-02-20 16:04] LABS: HEPATITIS A IGM NEGATIVE (NEGATIVE); HEPATITIS B CORE AB NEGATIVE (NEGATIVE)
[2018-02-20 16:16] LABS: HEPATITIS C ANTIBODY NEGATIVE (NEGATIVE)
[2018-02-21] MEDS: Lactated Ringer's 1,000 ML IV SCH ×5 (00:34→23:22)
[2018-02-21] MEDS: Levothyroxine 75 MCG TAB PO SCH (06:18)
[2018-02-21 06:22] LABS: BASO % 0.4 % (0.0-2.0); EOS # 0.1 K/uL (0.0-0.7); EOS % 1.3 % (0.0-4.0); HEMOGLOBIN 8.6 g/dL (12.0-16.0); LYMPH % 31.2 % (20.0-40.0); MEAN CELL VOLUME 74.8 fl (81.0-99.0); MEAN CORPUSCULAR HEMOGLOBIN 23.7 pg (27.0-31.0); MEAN CORPUSCULAR HGB CONC 31.7 g/dL (33.0-37.0); MEAN PLATELET VOLUME 6.8 fl (7.2-11.7); MONO # 0.5 K/uL (0.0-0.8); MONO % 7.6 % (0.0-10.0); NEUT # 3.9 K/uL (1.8-7.0); NEUT % 59.5 % (50.0-75.0); RBC 3.64 Mil/uL (3.80-5.20); RED CELL DISTRIBUTION WIDTH 16.7 % (11.5-14.5); WHITE BLOOD COUNT 6.5 K/uL (4.8-10.8)
[2018-02-21 06:36] LABS: ALB/GLOB RATIO 1.3 (1.0-2.1); ALBUMIN 3.1 g/dL (3.5-5.0); ALT/SGPT 101 U/L (9-52); AST/SGOT 71 U/L (14-36); BLOOD UREA NITROGEN 5 mg/dl (7-17); CALCIUM 8.6 mg/dL (8.4-10.2); GFR NON-AFRICAN AMERICAN > 60
--- NOTE | 2018-02-21 07:49 | CP.PCM.PN ---
<Sharon Red - Last Filed: 02/21/18 07:50> Subjective - Date & Time of Evaluation Date of Evaluation: 02/21/18 Time of Evaluation: 07:47 - Subjective Subjective: Surgery: Dr. Smith Pt seen and examined. No acute overnight events. States she feels better this morning and abdominal pain is minimal. She denies any nausea/vomiting. Admits to flatus. No fevers/chills overnight. Objective - Vital Signs/Intake and Output Vital Signs (last 24 hours): Temp Pulse Resp BP Pulse Ox 98.5 F 77 18 112/73 95 02/20/18 23:44 02/20/18 23:44 02/20/18 23:44 02/20/18 23:44 02/20/18 23:44 - Medications Medications: Current Medications Hydromorphone HCl (Dilaudid) 1 mg IVP Q4 PRN PRN Reason: Pain, severe (8-10) Hydromorphone HCl (Dilaudid) 0.5 mg IVP Q4 PRN PRN Reason: Pain, moderate (4-7) Cefepime HCl 2 gm/ Sodium (Chloride) 100 mls @ 100 mls/hr IVPB Q12 [facility] PRN Reason: Protocol Last Admin: 02/20/18 21:11 Dose: 100 mls/hr Lactated Ringer's (Lactated Ringer's) 1,000 mls @ 125 mls/hr IV .Q8H [facility] Last Admin: 02/21/18 07:44 Dose: Not Given Levothyroxine Sodium (Synthroid) 75 mcg PO DAILY@0630 [facility] Last Admin: 02/21/18 06:18 Dose: Not Given Ondansetron HCl (Zofran Inj) 4 mg IVP Q6 PRN PRN Reason: Nausea/Vomiting Pantoprazole Sodium (Protonix Inj) 40 mg IVP DAILY [facility] Last Admin: 02/20/18 09:15 Dose: 40 mg - Labs Labs: 02/21/18 05:55 02/21/18 05:55 - Constitutional Appears: Well, No Acute Distress - Head Exam Head Exam: ATRAUMATIC, NORMOCEPHALIC - ENT Exam ENT Exam: Mucous Membranes Moist - Respiratory Exam Respiratory Exam: NORMAL BREATHING PATTERN - Cardiovascular Exam Cardiovascular Exam: RRR - GI/Abdominal Exam GI & Abdominal Exam: Soft. absent: Distended, Guarding, Tenderness, Rebound - Extremities Exam Extremities Exam: absent: Calf Tenderness, Pedal Edema - Neurological Exam Neurological Exam: Alert, Awake, Oriented x3 - Skin Skin Exam: Dry, Warm Assessment and Plan - Assessment and Plan (Free Text) Assessment: 37F with abdominal pain and 3.8cm mass in the transverse colon as seen on CT abdomen/pelvis Plan: - pt to go for colonoscopy today at [address] Fuller - will f/u results of colonoscopy and make further recs as appropriate - tap water enemas this AM in prep for the colonoscopy - d/w Dr. Sarah Red <Chris Smith - Last Filed: 02/21/18 17:14> Subjective - Subjective Subjective: Patient was seen and examined at the bedside. Agree with resident's note above. Objective - Vital Signs/Intake and Output Vital Signs (last 24 hours): Temp Pulse Resp BP Pulse Ox 97.5 F L 75 20 124/73 100 02/21/18 16:00 02/21/18 16:00 02/21/18 16:00 02/21/18 16:00 02/21/18 16:00 Intake and Output: 02/21/18 02/21/18 06:59 18:59 Intake Total 150 Balance 150 - Medications Medications: Current Medications Hydromorphone HCl (Dilaudid) 1 mg IVP Q4 PRN PRN Reason: Pain, severe (8-10) Hydromorphone HCl (Dilaudid) 0.5 mg IVP Q4 PRN PRN Reason: Pain, moderate (4-7) Last Admin: 02/21/18 14:46 Dose: 0.5 mg Cefepime HCl 2 gm/ Sodium (Chloride) 100 mls @ 100 mls/hr IVPB Q12 [facility] PRN Reason: Protocol Last Admin: 02/21/18 09:43 Dose: 100 mls/hr Lactated Ringer's (Lactated Ringer's) 1,000 mls @ 125 mls/hr IV .Q8H [facility] Last Admin: 02/21/18 14:50 Dose: 125 mls/hr Levothyroxine Sodium (Synthroid) 75 mcg PO DAILY@0630 [facility] Last Admin: 02/21/18 06:18 Dose: Not Given Ondansetron HCl (Zofran Inj) 4 mg IVP Q6 PRN PRN Reason: Nausea/Vomiting Pantoprazole Sodium (Protonix Inj) 40 mg IVP DAILY [facility] Last Admin: 02/21/18 08:21 Dose: 40 mg - Labs Labs: 02/21/18 05:55 02/21/18 05:55 - GI/Abdominal Exam Additional comments: soft, very minimally tender, ND, BS+, no rebound, no guarding, incisions clean, no erythema, no drainage Assessment and Plan - Assessment and Plan (Free Text) Plan: - Colonoscopy results noted - Will await on pathology - NG tube for intestinal decompression - Repeat labs in am - Will follow
--- NOTE | 2018-02-21 09:20 | CP.PCM.PN ---
<Bassam Ramos - Last Filed: 02/21/18 16:33> Subjective - Date & Time of Evaluation Date of Evaluation: 02/21/18 Time of Evaluation: 08:10 - Subjective Subjective: pt seen and examined at bedside with Dr. Tejeda. Pt reports improvement in symptoms. Decreased abdominal distension, pain is better managed. NPO for colonoscopy today. Objective - Vital Signs/Intake and Output Vital Signs (last 24 hours): Temp Pulse Resp BP Pulse Ox 98.3 F 73 18 96/61 L 98 02/21/18 08:04 02/21/18 08:04 02/21/18 08:04 02/21/18 08:04 02/21/18 08:04 - Medications Medications: Current Medications Hydromorphone HCl (Dilaudid) 1 mg IVP Q4 PRN PRN Reason: Pain, severe (8-10) Hydromorphone HCl (Dilaudid) 0.5 mg IVP Q4 PRN PRN Reason: Pain, moderate (4-7) Cefepime HCl 2 gm/ Sodium (Chloride) 100 mls @ 100 mls/hr IVPB Q12 [facility] PRN Reason: Protocol Last Admin: 02/20/18 21:11 Dose: 100 mls/hr Lactated Ringer's (Lactated Ringer's) 1,000 mls @ 125 mls/hr IV .Q8H [facility] Last Admin: 02/21/18 07:44 Dose: Not Given Levothyroxine Sodium (Synthroid) 75 mcg PO DAILY@0630 [facility] Last Admin: 02/21/18 06:18 Dose: Not Given Ondansetron HCl (Zofran Inj) 4 mg IVP Q6 PRN PRN Reason: Nausea/Vomiting Pantoprazole Sodium (Protonix Inj) 40 mg IVP DAILY [facility] Last Admin: 02/21/18 08:21 Dose: 40 mg - Labs Labs: 02/21/18 05:55 02/21/18 05:55 - Constitutional Appears: Well, No Acute Distress - Eye Exam Eye Exam: EOMI - Neck Exam Neck Exam: Full ROM - Respiratory Exam Respiratory Exam: Clear to Ausculation Bilateral, NORMAL BREATHING PATTERN. absent: Wheezes - Cardiovascular Exam Cardiovascular Exam: REGULAR RHYTHM, +S1, +S2 - GI/Abdominal Exam GI & Abdominal Exam: Soft, Normal Bowel Sounds. absent: Tenderness - Neurological Exam Neurological Exam: Alert, Awake, CN II-XII Intact, Oriented x3 - Psychiatric Exam Psychiatric exam: Normal Affect, Normal Mood Assessment and Plan - Assessment and Plan (Free Text) Plan: Pt planned for colonoscopy at 13:00 s/p fleet enema Continue current management as ordered case dw Dr. Nikhil Ramos MD PGY2 <Khai Tejeda - Last Filed: 02/22/18 13:52> Objective - Vital Signs/Intake and Output Vital Signs (last 24 hours): Temp Pulse Resp BP Pulse Ox 98.5 F 68 18 97/56 L 96 02/22/18 09:58 02/22/18 09:58 02/22/18 09:58 02/22/18 09:58 02/22/18 09:58 - Medications Medications: Current Medications Hydromorphone HCl (Dilaudid) 1 mg IVP Q4 PRN PRN Reason: Pain, severe (8-10) Last Admin: 02/21/18 23:25 Dose: 1 mg Hydromorphone HCl (Dilaudid) 0.5 mg IVP Q4 PRN PRN Reason: Pain, moderate (4-7) Last Admin: 02/21/18 18:59 Dose: 0.5 mg Cefepime HCl 2 gm/ Sodium (Chloride) 100 mls @ 100 mls/hr IVPB Q12 [facility] PRN Reason: Protocol Last Admin: 02/22/18 08:17 Dose: 100 mls/hr Lactated Ringer's (Lactated Ringer's) 1,000 mls @ 125 mls/hr IV .Q8H [facility] Last Admin: 02/22/18 06:02 Dose: 125 mls/hr Levothyroxine Sodium (Synthroid) 75 mcg PO DAILY@0630 [facility] Last Admin: 02/22/18 06:01 Dose: 75 mcg Ondansetron HCl (Zofran Inj) 4 mg IVP Q6 PRN PRN Reason: Nausea/Vomiting Pantoprazole Sodium (Protonix Inj) 40 mg IVP DAILY [facility] Last Admin: 02/22/18 08:21 Dose: 40 mg - Labs Labs: 02/22/18 06:25 02/22/18 06:25 Assessment and Plan - Assessment and Plan (Free Text) Plan: Patient was personally seen and examined by me in rounds with residents. Available labs and diagnostic data reviewed. Case, Patient's condition and management plan discussed with residents in rounds. Agree with resident's progress note. Plan: As ordered.
[2018-02-21] MEDS: Cefepime 2 GM in Sodium Chloride 0.9% 100 ML IVPB SCH ×2 (09:43→21:08)
[2018-02-21] MEDS ORDERED: Propofol 10 mg/ml Inj (20 ML) ONE ×2 (12:44→13:40)
[2018-02-21] MEDS ORDERED: Lactated Ringer's 500 ML IV ONE (12:46)
[2018-02-22] MEDS: Levothyroxine 75 MCG TAB PO SCH (06:01)
[2018-02-22] MEDS: Lactated Ringer's 1,000 ML IV SCH ×3 (06:02→23:25)
[2018-02-22 06:41] LABS: BASO % 0.1 % (0.0-2.0); EOS # 0.1 K/uL (0.0-0.7); EOS % 1.4 % (0.0-4.0); HEMOGLOBIN 8.1 g/dL (12.0-16.0); LYMPH # 1.4 K/uL (1.0-4.3); LYMPH % 18.1 % (20.0-40.0); MEAN CELL VOLUME 74.8 fl (81.0-99.0); MEAN CORPUSCULAR HEMOGLOBIN 24.1 pg (27.0-31.0); MEAN CORPUSCULAR HGB CONC 32.2 g/dL (33.0-37.0); MEAN PLATELET VOLUME 6.9 fl (7.2-11.7); MONO # 0.4 K/uL (0.0-0.8); MONO % 5.4 % (0.0-10.0); NEUT # 5.9 K/uL (1.8-7.0); RBC 3.36 Mil/uL (3.80-5.20); RED CELL DISTRIBUTION WIDTH 16.7 % (11.5-14.5); WHITE BLOOD COUNT 7.9 K/uL (4.8-10.8)
[2018-02-22 07:21] LABS: ALB/GLOB RATIO 1.3 (1.0-2.1); ALBUMIN 3.1 g/dL (3.5-5.0); ALT/SGPT 95 U/L (9-52); AST/SGOT 53 U/L (14-36); BLOOD UREA NITROGEN 5 mg/dl (7-17); CALCIUM 8.6 mg/dL (8.4-10.2); GFR NON-AFRICAN AMERICAN > 60
--- NOTE | 2018-02-22 07:44 | PQF ---
PROVIDER RESPONSE TEXT: SIRS REVIEWER QUERY TEXT: SIRS Underlying Cause Two ( 2) queries: Systemic Inflammatory Response Syndrome (SIRS) is documented in the Medical Record by the ER. 1) Please clarify if you concur with SIRS diagnosis. If yes please answer query #2) 2) Please specify the underlying cause (includes suspected or probable) Infectious versus Non Infect ious. Such as: -- Infectious cause / process - With organ dysfunction -- Non-infectious cause / process - Without organ dysfunction - With organ dysfunction -- Other, please specify The patient's Clinical Indicators include: Admitted with RUQ pain, nausea, emesis and chills. POD #7 for Lap Abby. + . ER: SIRS, SBO WBC 15.3 L shift , lactate 3.7 TEMP: 97, 97.5, 99.2, 99.3 X2, 98.7, 99.1, 99.4 HR: 126. 107 x2, 100, 97 x 2, 96, 101, 87 BP: 132/42, 131/85, 120/78, 126/81, 139/76 x 2 R 26, 19, 20, 18 RX: IVAB, IVF, Pain medication Query created by: Sandra Jimenez on 02/21/2018 8:56 AM Electronically signed by: Khai Tejeda 02/22/2018 7:42 AM
[2018-02-22] MEDS: Cefepime 2 GM in Sodium Chloride 0.9% 100 ML IVPB SCH ×2 (08:17→21:01)
--- NOTE | 2018-02-22 08:30 | CP.PCM.PN ---
<Bassam Foy - Last Filed: 02/22/18 09:45> Subjective - Date & Time of Evaluation Date of Evaluation: 02/22/18 Time of Evaluation: 08:10 - Subjective Subjective: Pt seen and examined at bedside with Dr. Tejeda Pt denies acute overnight events. Reports anxiety about possible prognosis and plan of care. Objective - Vital Signs/Intake and Output Vital Signs (last 24 hours): Temp Pulse Resp BP Pulse Ox 98.5 F 68 18 97/56 L 96 02/22/18 07:34 02/22/18 07:34 02/22/18 07:34 02/22/18 07:34 02/22/18 07:34 - Medications Medications: Current Medications Hydromorphone HCl (Dilaudid) 1 mg IVP Q4 PRN PRN Reason: Pain, severe (8-10) Last Admin: 02/21/18 23:25 Dose: 1 mg Hydromorphone HCl (Dilaudid) 0.5 mg IVP Q4 PRN PRN Reason: Pain, moderate (4-7) Last Admin: 02/21/18 18:59 Dose: 0.5 mg Cefepime HCl 2 gm/ Sodium (Chloride) 100 mls @ 100 mls/hr IVPB Q12 DIVYA PRN Reason: Protocol Last Admin: 02/22/18 08:17 Dose: 100 mls/hr Lactated Ringer's (Lactated Ringer's) 1,000 mls @ 125 mls/hr IV .Q8H [facility] Last Admin: 02/22/18 06:02 Dose: 125 mls/hr Levothyroxine Sodium (Synthroid) 75 mcg PO DAILY@0630 [facility] Last Admin: 02/22/18 06:01 Dose: 75 mcg Ondansetron HCl (Zofran Inj) 4 mg IVP Q6 PRN PRN Reason: Nausea/Vomiting Pantoprazole Sodium (Protonix Inj) 40 mg IVP DAILY [facility] Last Admin: 02/22/18 08:21 Dose: 40 mg - Labs Labs: 02/22/18 06:25 02/22/18 06:25 - Constitutional Appears: Well, No Acute Distress - Eye Exam Eye Exam: EOMI - Neck Exam Neck Exam: Full ROM - Respiratory Exam Respiratory Exam: Clear to Ausculation Bilateral, NORMAL BREATHING PATTERN. absent: Wheezes - Cardiovascular Exam Cardiovascular Exam: REGULAR RHYTHM, +S1, +S2 - GI/Abdominal Exam GI & Abdominal Exam: Soft, Tenderness, Normal Bowel Sounds - Neurological Exam Neurological Exam: Alert, Awake, CN II-XII Intact, Oriented x3 - Psychiatric Exam Psychiatric exam: Anxious Assessment and Plan - Assessment and Plan (Free Text) Plan: Continue with current treatment/care plan as ordered Pending plan for recent findings for mass at transverse colon. pendign bx bcx ngtd Surgery: on board. possible colectomy early next week. GI Dr. Fuller on board. further recommendations appreciated case dw Dr. Nikhil foy md pgy2 <Khai Tejeda - Last Filed: 02/22/18 13:57> Objective - Vital Signs/Intake and Output Vital Signs (last 24 hours): Temp Pulse Resp BP Pulse Ox 98.5 F 68 18 97/56 L 96 02/22/18 09:58 02/22/18 09:58 02/22/18 09:58 02/22/18 09:58 02/22/18 09:58 - Medications Medications: Current Medications Hydromorphone HCl (Dilaudid) 1 mg IVP Q4 PRN PRN Reason: Pain, severe (8-10) Last Admin: 02/21/18 23:25 Dose: 1 mg Hydromorphone HCl (Dilaudid) 0.5 mg IVP Q4 PRN PRN Reason: Pain, moderate (4-7) Last Admin: 02/21/18 18:59 Dose: 0.5 mg Cefepime HCl 2 gm/ Sodium (Chloride) 100 mls @ 100 mls/hr IVPB Q12 DIVYA PRN Reason: Protocol Last Admin: 02/22/18 08:17 Dose: 100 mls/hr Lactated Ringer's (Lactated Ringer's) 1,000 mls @ 125 mls/hr IV .Q8H [facility] Last Admin: 02/22/18 06:02 Dose: 125 mls/hr Levothyroxine Sodium (Synthroid) 75 mcg PO DAILY@0630 [facility] Last Admin: 02/22/18 06:01 Dose: 75 mcg Ondansetron HCl (Zofran Inj) 4 mg IVP Q6 PRN PRN Reason: Nausea/Vomiting Pantoprazole Sodium (Protonix Inj) 40 mg IVP DAILY [facility] Last Admin: 02/22/18 08:21 Dose: 40 mg - Labs Labs: 02/22/18 06:25 02/22/18 06:25 Assessment and Plan - Assessment and Plan (Free Text) Plan: Patient was personally seen and examined by me in rounds with residents. Available labs and diagnostic data reviewed. Case, Patient's condition and management plan discussed with residents in rounds. Agree with resident's progress note. Plan: As ordered.
--- NOTE | 2018-02-22 08:39 | CP.PCM.PN ---
<Lucas Silverman - Last Filed: 02/22/18 09:18> Subjective - Date & Time of Evaluation Date of Evaluation: 02/22/18 Time of Evaluation: 07:20 - Subjective Subjective: General Surgery Note for Dr. Smith Patient seen and examined at bedside. No acute event overnight. Pain has slightly improved but still complaining of distention. She denies any fever/ chills or nausea/vomiting. Admits to flatus but denies BM. Patient is refusing NGT. Objective - Vital Signs/Intake and Output Vital Signs (last 24 hours): Temp Pulse Resp BP Pulse Ox 98.5 F 68 18 97/56 L 96 02/22/18 07:34 02/22/18 07:34 02/22/18 07:34 02/22/18 07:34 02/22/18 07:34 - Medications Medications: Current Medications Hydromorphone HCl (Dilaudid) 1 mg IVP Q4 PRN PRN Reason: Pain, severe (8-10) Last Admin: 02/21/18 23:25 Dose: 1 mg Hydromorphone HCl (Dilaudid) 0.5 mg IVP Q4 PRN PRN Reason: Pain, moderate (4-7) Last Admin: 02/21/18 18:59 Dose: 0.5 mg Cefepime HCl 2 gm/ Sodium (Chloride) 100 mls @ 100 mls/hr IVPB Q12 DIVYA PRN Reason: Protocol Last Admin: 02/22/18 08:17 Dose: 100 mls/hr Lactated Ringer's (Lactated Ringer's) 1,000 mls @ 125 mls/hr IV .Q8H [facility] Last Admin: 02/22/18 06:02 Dose: 125 mls/hr Levothyroxine Sodium (Synthroid) 75 mcg PO DAILY@0630 [facility] Last Admin: 02/22/18 06:01 Dose: 75 mcg Ondansetron HCl (Zofran Inj) 4 mg IVP Q6 PRN PRN Reason: Nausea/Vomiting Pantoprazole Sodium (Protonix Inj) 40 mg IVP DAILY [facility] Last Admin: 02/22/18 08:21 Dose: 40 mg - Labs Labs: 02/22/18 06:25 02/22/18 06:25 - Additional Findings Additional findings: - Constitutional Appears: Well, No Acute Distress - Head Exam Head Exam: ATRAUMATIC, NORMOCEPHALIC - ENT Exam ENT Exam: Mucous Membranes Moist - Respiratory Exam Respiratory Exam: NORMAL BREATHING PATTERN - Cardiovascular Exam Cardiovascular Exam: RRR - GI/Abdominal Exam GI & Abdominal Exam: Soft. 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 Sarah Silverman PGY2 <Chris Smith - Last Filed: 02/22/18 12:19> Subjective - Date & Time of Evaluation Time of Evaluation: 11:00 - Subjective Subjective: Patient was seen and examined at the bedside. Agree with resident's note above. Objective - Vital Signs/Intake and Output Vital Signs (last 24 hours): Temp Pulse Resp BP Pulse Ox 98.5 F 68 18 97/56 L 96 02/22/18 09:58 02/22/18 09:58 02/22/18 09:58 02/22/18 09:58 02/22/18 09:58 - Medications Medications: Current Medications Hydromorphone HCl (Dilaudid) 1 mg IVP Q4 PRN PRN Reason: Pain, severe (8-10) Last Admin: 02/21/18 23:25 Dose: 1 mg Hydromorphone HCl (Dilaudid) 0.5 mg IVP Q4 PRN PRN Reason: Pain, moderate (4-7) Last Admin: 02/21/18 18:59 Dose: 0.5 mg Cefepime HCl 2 gm/ Sodium (Chloride) 100 mls @ 100 mls/hr IVPB Q12 DIVYA PRN Reason: Protocol Last Admin: 02/22/18 08:17 Dose: 100 mls/hr Lactated Ringer's (Lactated Ringer's) 1,000 mls @ 125 mls/hr IV .Q8H [facility] Last Admin: 02/22/18 06:02 Dose: 125 mls/hr Levothyroxine Sodium (Synthroid) 75 mcg PO DAILY@0630 [facility] Last Admin: 02/22/18 06:01 Dose: 75 mcg Ondansetron HCl (Zofran Inj) 4 mg IVP Q6 PRN PRN Reason: Nausea/Vomiting Pantoprazole Sodium (Protonix Inj) 40 mg IVP DAILY [facility] Last Admin: 02/22/18 08:21 Dose: 40 mg - Labs Labs: 02/22/18 06:25 02/22/18 06:25 - GI/Abdominal Exam Additional comments: soft, mildly tender on the right side, ND, BS+, no rebound, no guarding, incisions clean, no erythema, no drainage, dermobond in place Assessment and Plan - Assessment and Plan (Free Text) Plan: - Keep NPO - IV fluids - Pain control - Awaiting on the results of the pathology - Will plan for surgery early next week - Repeat labs in am - Will follow
[2018-02-22 10:01] LABS: FERRITIN 10.5 ng/Ml (6.24-137.0)
[2018-02-22 22:33] LABS: FOLATE 15.4 ng/mL
[2018-02-23] MEDS: Levothyroxine 75 MCG TAB PO SCH (06:06)
[2018-02-23 08:07] LABS: BASO % 0.4 % (0.0-2.0); EOS # 0.1 K/uL (0.0-0.7); EOS % 2.4 % (0.0-4.0); HEMOGLOBIN 8.9 g/dL (12.0-16.0); LYMPH # 1.5 K/uL (1.0-4.3); LYMPH % 25.2 % (20.0-40.0); MEAN CELL VOLUME 74.4 fl (81.0-99.0); MEAN CORPUSCULAR HEMOGLOBIN 24.6 pg (27.0-31.0); MEAN PLATELET VOLUME 7.5 fl (7.2-11.7); MONO # 0.4 K/uL (0.0-0.8); MONO % 5.9 % (0.0-10.0); NEUT % 66.1 % (50.0-75.0); NRBC % 0.1 % (0.0-0.0); RBC 3.63 Mil/uL (3.80-5.20); RED CELL DISTRIBUTION WIDTH 16.4 % (11.5-14.5)
[2018-02-23 08:19] LABS: IRON < 10 ug/dL (37-170)
[2018-02-23 08:25] LABS: ALT/SGPT 87 U/L (9-52); AST/SGOT 53 U/L (14-36); BLOOD UREA NITROGEN 4 mg/dl (7-17); CALCIUM 8.9 mg/dL (8.4-10.2); GFR NON-AFRICAN AMERICAN > 60
[2018-02-23] MEDS: Cefepime 2 GM in Sodium Chloride 0.9% 100 ML IVPB SCH ×2 (08:30→21:15)
[2018-02-23 08:34] LABS: ALBUMIN 3.4 g/dL (3.5-5.0)
[2018-02-23 08:36] LABS: TOTAL IRON BINDING CAPACITY 392 ug/dL (250-450)
[2018-02-23 08:37] LABS: % IRON SATURATION 2.6 % (20-55)
--- NOTE | 2018-02-23 08:37 | CP.PCM.PN ---
Subjective - Date & Time of Evaluation Date of Evaluation: 02/23/18 Time of Evaluation: 08:35 - Subjective Subjective: Surgery: Dr. Joy/Dr. Smith Pt seen and examined. No acute overnight events. Pt states she feels a lot better this morning. Her abdominal pain has improved and she admits to having 2 small BMs overnight. She denies nausea/vomiting or fevers/chills. Objective - Vital Signs/Intake and Output Vital Signs (last 24 hours): Temp Pulse Resp BP Pulse Ox 98 F 66 20 110/73 100 02/23/18 08:28 02/23/18 08:28 02/23/18 08:28 02/23/18 08:28 02/23/18 08:28 - Medications Medications: Current Medications Hydromorphone HCl (Dilaudid) 1 mg IVP Q4 PRN PRN Reason: Pain, severe (8-10) Last Admin: 02/21/18 23:25 Dose: 1 mg Hydromorphone HCl (Dilaudid) 0.5 mg IVP Q4 PRN PRN Reason: Pain, moderate (4-7) Last Admin: 02/21/18 18:59 Dose: 0.5 mg Cefepime HCl 2 gm/ Sodium (Chloride) 100 mls @ 100 mls/hr IVPB Q12 DIVYA PRN Reason: Protocol Last Admin: 02/23/18 08:30 Dose: 100 mls/hr Lactated Ringer's (Lactated Ringer's) 1,000 mls @ 125 mls/hr IV .Q8H [facility] Last Admin: 02/22/18 23:25 Dose: 125 mls/hr Levothyroxine Sodium (Synthroid) 75 mcg PO DAILY@0630 [facility] Last Admin: 02/23/18 06:06 Dose: 75 mcg Ondansetron HCl (Zofran Inj) 4 mg IVP Q6 PRN PRN Reason: Nausea/Vomiting Pantoprazole Sodium (Protonix Inj) 40 mg IVP DAILY [facility] Last Admin: 02/22/18 08:21 Dose: 40 mg - Labs Labs: 02/23/18 05:30 02/23/18 05:30 - Constitutional Appears: Well, No Acute Distress - Head Exam Head Exam: ATRAUMATIC, NORMOCEPHALIC - Eye Exam Eye Exam: Normal appearance - ENT Exam ENT Exam: Mucous Membranes Moist - Respiratory Exam Respiratory Exam: NORMAL BREATHING PATTERN - Cardiovascular Exam Cardiovascular Exam: RRR - GI/Abdominal Exam GI & Abdominal Exam: Soft, Tenderness (to deep palpation ). absent: Distended, Guarding, Rebound - Neurological Exam Neurological Exam: Alert, Awake, Oriented x3 - Skin Skin Exam: Dry, Warm Assessment and Plan - Assessment and Plan (Free Text) Assessment: 37F with transverse colon mass s/p colonoscopy; partially obstructing Plan: - awaiting pathology results; after discussion with pathologist results will be available on Sunday - keep NPO for now - plan for OR sunday - Pre-op Sunday night - further recs per Dr. Rufino Red
[2018-02-23 08:38] LABS: ALB/GLOB RATIO 1.3 (1.0-2.1)
[2018-02-23] MEDS ORDERED: Dextrose 50% SYRINGE Inj (50 ml) IVP ONE (12:03)
[2018-02-23] MEDS ORDERED: Potassium Ch 20mEq in D5-1/2NS 1,000 ML IV SCH (12:15)
--- NOTE | 2018-02-23 13:53 | PN ---
DATE: 02/23/2018 SUBJECTIVE: The patient is seen and examined. Interim events noted. Consult noted and appreciated. Surgical followup and intervention noted and appreciated. The patient remains in regular medical floor. The patient feels okay. The patient is ambulatory, going to bathroom. The patient had bowel movement, although it was all liquid. Denies any chest pain or shortness of breath. No abdominal pain. No diarrhea or vomiting. PHYSICAL EXAMINATION: GENERAL: The patient is in no acute distress. VITAL SIGNS: Stable. HEART: S1 and S2, normal and regular. LUNGS: Good bilateral air exchange. ABDOMEN: Soft and nontender. No organomegaly. No fluid. Bowel sounds are plus and normal. No sign of acute abdomen. No guarding. No rigidity. No rebound. Distention does seem to be much less. DIAGNOSTIC DATA: Available diagnostic data reviewed. ASSESSMENT AND PLAN: Overall, the patient's general medical condition is hemodynamically stable. Long-term prognosis pathology. Pathology report is still pending. Plan as ordered. Case and plan discussed with the patient. Khai Tejeda MD
[2018-02-23] MEDS: Potassium Ch 20mEq in D5-1/2NS 1,000 ML IV SCH (21:43)
[2018-02-24] MEDS: Potassium Ch 20mEq in D5-1/2NS 1,000 ML IV SCH ×3 (01:00→17:24)
[2018-02-24] MEDS: Levothyroxine 75 MCG TAB PO SCH (06:31)
[2018-02-24 07:00] LABS: HEMOGLOBIN 9.6 g/dL (12.0-16.0); MEAN CELL VOLUME 74.1 fl (81.0-99.0); MEAN CORPUSCULAR HEMOGLOBIN 24.5 pg (27.0-31.0); RBC 3.93 Mil/uL (3.80-5.20); RED CELL DISTRIBUTION WIDTH 16.8 % (11.5-14.5); WHITE BLOOD COUNT 6.9 K/uL (4.8-10.8)
[2018-02-24 07:17] LABS: ALB/GLOB RATIO 1.3 (1.0-2.1); ALBUMIN 3.5 g/dL (3.5-5.0); ALT/SGPT 76 U/L (9-52); AST/SGOT 49 U/L (14-36); BLOOD UREA NITROGEN 3 mg/dl (7-17); CALCIUM 8.9 mg/dL (8.4-10.2); GFR NON-AFRICAN AMERICAN > 60
--- NOTE | 2018-02-24 09:38 | CP.PCM.PN ---
Subjective - Date & Time of Evaluation Date of Evaluation: 02/24/18 Time of Evaluation: 09:37 - Subjective Subjective: Surgery: Dr. Joy Pt seen and examined. Resting comfortably in bed. No acute events overnight. No N/V. BMx2 yesterday. Objective - Vital Signs/Intake and Output Vital Signs (last 24 hours): Temp Pulse Resp BP Pulse Ox 98.3 F 72 18 118/80 100 02/24/18 08:27 02/24/18 08:27 02/24/18 08:27 02/24/18 08:27 02/24/18 08:27 - Medications Medications: Current Medications Hydromorphone HCl (Dilaudid) 1 mg IVP Q4 PRN PRN Reason: Pain, severe (8-10) Last Admin: 02/21/18 23:25 Dose: 1 mg Hydromorphone HCl (Dilaudid) 0.5 mg IVP Q4 PRN PRN Reason: Pain, moderate (4-7) Last Admin: 02/21/18 18:59 Dose: 0.5 mg Cefepime HCl 2 gm/ Sodium (Chloride) 100 mls @ 100 mls/hr IVPB Q12 DIVYA PRN Reason: Protocol Last Admin: 02/23/18 21:15 Dose: 100 mls/hr Potassium Chloride/Dextrose/Sod Cl (Potassium Chl 20 Meq In D5-1/2ns) 1,000 mls @ 125 mls/hr IV .Q8H [facility] Stop: 02/24/18 12:02 Last Admin: 02/24/18 01:00 Dose: Not Given Levothyroxine Sodium (Synthroid) 75 mcg PO DAILY@0630 [facility] Last Admin: 02/24/18 06:31 Dose: 75 mcg Ondansetron HCl (Zofran Inj) 4 mg IVP Q6 PRN PRN Reason: Nausea/Vomiting Pantoprazole Sodium (Protonix Inj) 40 mg IVP DAILY [facility] Last Admin: 02/23/18 08:32 Dose: 40 mg - Labs Labs: 02/24/18 05:30 02/24/18 05:30 - Constitutional Appears: Non-toxic, No Acute Distress - Head Exam Head Exam: ATRAUMATIC, NORMOCEPHALIC - Eye Exam Eye Exam: EOMI - ENT Exam ENT Exam: Mucous Membranes Moist - Neck Exam Neck Exam: Full ROM - Respiratory Exam Respiratory Exam: NORMAL BREATHING PATTERN. absent: Accessory Muscle Use, Respiratory Distress - GI/Abdominal Exam GI & Abdominal Exam: Soft. absent: Distended, Firm, Guarding, Rigid, Tenderness - Extremities Exam Extremities Exam: absent: Calf Tenderness, Pedal Edema - Neurological Exam Neurological Exam: Alert, Awake, Oriented x3 - Psychiatric Exam Psychiatric exam: Normal Affect, Normal Mood Assessment and Plan - Assessment and Plan (Free Text) Assessment: 37F with transverse colon mass s/p colonoscopy; partially obstructing -Awaiting path results from colonoscopy -Tentative OR tomorrow -Keep npo -c/w IVF -AM labs -will d/w attending Zemaitis PGY4
[2018-02-24] MEDS: Cefepime 2 GM in Sodium Chloride 0.9% 100 ML IVPB SCH ×2 (09:48→20:16)
--- NOTE | 2018-02-24 12:27 | CP.PCM.PN ---
Subjective - Date & Time of Evaluation Date of Evaluation: 02/24/18 Time of Evaluation: 12:24 - Subjective Subjective: Has less abdominal pain and bloating. Had BM yesterday. Biopsies still pending. Objective - Vital Signs/Intake and Output Vital Signs (last 24 hours): Temp Pulse Resp BP Pulse Ox 98.3 F 72 18 118/80 100 02/24/18 08:27 02/24/18 08:27 02/24/18 08:27 02/24/18 08:27 02/24/18 08:27 - Medications Medications: Current Medications Hydromorphone HCl (Dilaudid) 1 mg IVP Q4 PRN PRN Reason: Pain, severe (8-10) Last Admin: 02/21/18 23:25 Dose: 1 mg Hydromorphone HCl (Dilaudid) 0.5 mg IVP Q4 PRN PRN Reason: Pain, moderate (4-7) Last Admin: 02/21/18 18:59 Dose: 0.5 mg Cefepime HCl 2 gm/ Sodium (Chloride) 100 mls @ 100 mls/hr IVPB Q12 DIVYA PRN Reason: Protocol Last Admin: 02/24/18 09:48 Dose: 100 mls/hr Levothyroxine Sodium (Synthroid) 75 mcg PO DAILY@0630 [facility] Last Admin: 02/24/18 06:31 Dose: 75 mcg Ondansetron HCl (Zofran Inj) 4 mg IVP Q6 PRN PRN Reason: Nausea/Vomiting Pantoprazole Sodium (Protonix Inj) 40 mg IVP DAILY [facility] Last Admin: 02/24/18 09:44 Dose: 40 mg - Labs Labs: 02/24/18 05:30 02/24/18 05:30 - Head Exam Head Exam: ATRAUMATIC - Eye Exam Eye Exam: Normal appearance - ENT Exam ENT Exam: Mucous Membranes Moist - Neck Exam Neck Exam: Normal Inspection - Respiratory Exam Respiratory Exam: NORMAL BREATHING PATTERN - Cardiovascular Exam Cardiovascular Exam: REGULAR RHYTHM, +S1, +S2 - GI/Abdominal Exam GI & Abdominal Exam: Soft, Tenderness, Normal Bowel Sounds. 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 Colonoscopic biosies should be available tomorrow. Status: Acute
--- NOTE | 2018-02-24 21:19 | PN ---
DATE: 02/24/2018 SUBJECTIVE: The patient seen and examined. Interim events noted. Consults noted and appreciated. Surgery followup and interventions noted and appreciated. The patient remains in regular medical floor. The patient feels okay. Denies any chest pain or shortness of breath. No abdominal pain, nausea, vomiting, or diarrhea. The patient had BM, but no solid BM, just the liquid. PHYSICAL EXAMINATION: GENERAL: The patient is in no acute distress. VITAL SIGNS: Stable. HEART: S1, S2, normal and regular. LUNGS: Good bilateral air exchange. ABDOMEN: Soft, nontender. No organomegaly noted. Bowel sounds are present and normal. No sign of acute abdomen. No guarding, no rigidity, no rebound. EXTREMITIES: No edema, no calf swelling, no tenderness, no acute ischemia. PERSONAL SECRETARY: Essentially unchanged. DIAGNOSTIC DATA: Available diagnostic data reviewed. PLAN: The patient is tentatively scheduled for surgery tomorrow. Pathology report is pending. Plan as ordered. Case and plan discussed with the patient. Khai Tejeda MD
[2018-02-24] MEDS ORDERED: Sodium Chloride 0.9% 1,000 ML IV SCH (23:45)
[2018-02-25 05:53] LABS: HEMOGLOBIN 9.7 g/dL (12.0-16.0); MEAN CELL VOLUME 74.5 fl (81.0-99.0); MEAN CORPUSCULAR HEMOGLOBIN 24.3 pg (27.0-31.0); MEAN CORPUSCULAR HGB CONC 32.6 g/dL (33.0-37.0); RBC 3.97 Mil/uL (3.80-5.20); WHITE BLOOD COUNT 5.2 K/uL (4.8-10.8)
[2018-02-25 06:19] LABS: INR 1.1; PROTHROMBIN TIME 12.1 Seconds (9.8-13.1)
[2018-02-25 06:20] LABS: PARTIAL THROMBOPLASTIN TIME 29.2 Seconds (25.6-37.1)
[2018-02-25 06:29] LABS: ALB/GLOB RATIO 1.1 (1.0-2.1); ALBUMIN 3.3 g/dL (3.5-5.0); ALT/SGPT 80 U/L (9-52); AST/SGOT 44 U/L (14-36); BLOOD UREA NITROGEN < 2 mg/dl (7-17); CALCIUM 8.9 mg/dL (8.4-10.2); GFR NON-AFRICAN AMERICAN > 60
[2018-02-25] MEDS: Levothyroxine 75 MCG TAB PO SCH (06:32)
[2018-02-25] MEDS ORDERED: Magnesium Sulfate 2 gm/50 ml 2 GM/50 ML BAG IVPB ONE (07:59)
--- NOTE | 2018-02-25 10:20 | CP.PCM.PN ---
Subjective - Date & Time of Evaluation Date of Evaluation: 02/25/18 Time of Evaluation: 10:16 - Subjective Subjective: General Surgery Pt seen and examined this AM. She reports feeling well. Denies abdominal pain. (-) N/V. Pt had 2 BMs since overnight, described as diarrhea. Afebrile. Remains NPO since (02/20/18). Labs and vitals noted. PE Gen: Pt laying in bed in NAD Skin: warm and dry Cardio: s1s2 RRR Lungs:CTA bilaterally Abd: Soft NTND Extr: (-) calf tenderness or swelling bilaterally A/P Colon Mass Pt pending pathology from colonoscopy, results should be in today Pt for OR today at 1430, pending if pathology results are back in time Remain NPO Continue IVF for now Rec PPN, to provide some nutrition as pt is day 6 of being NPO today. RD consult entered, RD made aware Objective - Vital Signs/Intake and Output Vital Signs (last 24 hours): Temp Pulse Resp BP Pulse Ox 98.6 F 68 20 115/79 96 02/25/18 07:53 02/25/18 07:53 02/25/18 07:53 02/25/18 07:53 02/25/18 07:53 - Medications Medications: Current Medications Hydromorphone HCl (Dilaudid) 1 mg IVP Q4 PRN PRN Reason: Pain, severe (8-10) Last Admin: 02/21/18 23:25 Dose: 1 mg Hydromorphone HCl (Dilaudid) 0.5 mg IVP Q4 PRN PRN Reason: Pain, moderate (4-7) Last Admin: 02/21/18 18:59 Dose: 0.5 mg Sodium Chloride (Sodium Chloride 0.9%) 1,000 mls @ 100 mls/hr IV .Q10H [facility] Stop: 02/25/18 23:56 Last Admin: 02/25/18 00:21 Dose: 100 mls/hr Levothyroxine Sodium (Synthroid) 75 mcg PO DAILY@0630 [facility] Last Admin: 02/25/18 06:32 Dose: 75 mcg Ondansetron HCl (Zofran Inj) 4 mg IVP Q6 PRN PRN Reason: Nausea/Vomiting Pantoprazole Sodium (Protonix Inj) 40 mg IVP DAILY [facility] Last Admin: 02/25/18 09:11 Dose: 40 mg - Labs Labs: 02/25/18 05:45 02/25/18 05:45 PT 12.1 Seconds (9.8-13.1) 02/25/18 05:45 INR 1.1 02/25/18 05:45 APTT 29.2 Seconds (25.6-37.1) 02/25/18 05:45
--- NOTE | 2018-02-25 13:25 | PN ---
DATE: 02/25/2018 SUBJECTIVE: The patient seen and examined. Interim events noted. Consults noted and appreciated. Surgery followup and interventions noted and appreciated. The patient remains in regular medical floor. The patient feels okay. Denies any chest pain, shortness of breath, abdominal pian, diarrhea, or vomiting. The patient still has liquid stool. No solid stools. PHYSICAL EXAMINATION: GENERAL: The patient is in no acute distress. VITAL SIGNS: Stable. HEART: S1 and S2, normal and regular. LUNGS: Good bilateral air exchange. ABDOMEN: Soft, nontender. No organomegaly. No fluid. Bowel sounds are plus and normal. No sign of acute abdomen. No guarding. No rigidity. No rebound. EXTREMITIES: No edema. No calf swelling. No tenderness. No acute ischemia. CODE ENFORCEMENT OFFICER: Exam is essentially unchanged. DIAGNOSTIC DATA: Available diagnostic data reviewed. Pathology report is still pending. ASSESSMENT AND PLAN: The patient is tentatively scheduled for surgery today around 02:30 p.m. Plan as ordered. Case and plan discussed with the patient. Khai Tejeda MD
[2018-02-25] MEDS ORDERED: Propofol 10 mg/ml Inj (20 ML) ONE (14:29)
[2018-02-25] MEDS ORDERED: Lidocaine 4% (Laryng-O-Jet) Kit MM ONE (14:30)
[2018-02-25] MEDS ORDERED: Rocuronium 10 mg/ml (5 ml) ONE (14:30)
[2018-02-25] MEDS ORDERED: Midazolam 2 MG/2 ML VIAL ONE (14:31)
--- NOTE | 2018-02-25 14:40 | PQF ---
PROVIDER RESPONSE TEXT: SIRS probably secondary to non-infectious process in colon (tumor) REVIEWER QUERY TEXT: SIRS Underlying Cause Please clarify if the SIRS is Infectious or Non-Infectious. Systemic Inflammatory Response Syndrome (SIRS) is documented in the Medical Record. Please specify th e underlying cause (includes suspected or probable) Such as: -- Infectious cause / process - With organ dysfunction -- Non-infectious cause / process - Without organ dysfunction - With organ dysfunction -- Other, please specify The patient's Clinical Indicators include: Admitted with RUQ pain, nausea, emesis and chills. POD #7 for Lap Abby. + . ER: SIRS, SBO WBC 15.3 L shift , lactate 3.7 TEMP: 97, 97.5, 99.2, 99.3 X2, 98.7, 99.1, 99.4 HR: 126. 107 x2, 100, 97 x 2, 96, 101, 87 BP: 132/42, 131/85, 120/78, 126/81, 139/76 x 2 R 26, 19, 20, 18 Colonoscopy with obstructing mass in transverse colon. RX: IVAB, IVF, Pain medication Query created by: Sandra Jimenez on 02/22/2018 8:57 AM Electronically signed by: Khai Tejeda 02/25/2018 2:38 PM
--- NOTE | 2018-02-25 14:40 | PQF ---
PROVIDER RESPONSE TEXT: REVIEWER QUERY TEXT: Clarification of Clinical Diagnostic Findings The patient's Clinical Indicators include: Patient admitted with abdominal pain. POD #[address]: 3.8 cm segment of asymmetric wall thickening of the proximal transverse colon worrisome for apple -core lesion. Small bowel loops appear fluid filled and dilated with appearance concerning for obstru ction. Malignant neoplasm must be excluded Iron < 10, TIBC/ Vitamin B12/Folate WNL. 02/23 Stool Occult Blood + Query created by: Sandra Jimenez on 02/25/2018 10:14 AM Electronically signed by: Khai Tejeda 02/25/2018 2:38 PM
[2018-02-25] MEDS ORDERED: metroNIDAZOLE 500mg/100ml NS 100 ML IVPB ONE (14:51)
[2018-02-25] MEDS ORDERED: Ciprofloxacin 400mg/200ml D5W 0 MG/0 ML BAG IVPB ONE (14:51)
[2018-02-25] MEDS ORDERED: Bupivacaine HCl 0.5% PF (30 ml) Inj ONE (14:54)
[2018-02-25] MEDS ORDERED: Lactated Ringer's 1,000 ML IV ONE ×3 (15:00→18:25)
[2018-02-25] MEDS ORDERED: Sodium Chloride 0.9% 1,000 ML IV ONE (15:10)
[2018-02-25] MEDS ORDERED: Neostigmine 1:1000 (1 mg/ml) Inj ONE (15:57)
[2018-02-25] MEDS ORDERED: Sodium Chloride 0.9% 30 ML IV ONE (16:03)
[2018-02-25] MEDS ORDERED: Succinylcholine 200 mg/10 ml Inj IV ONE (16:42)
--- NOTE | 2018-02-25 18:28 | PCM.ANESB5 ---
Transverse Abdominis Block - Transverse Abdominis Plane Date of Procedure: 02/25/18 Anesthesiologist: Kenji Pre-Procedure Diagnosis: Ex-lap Post-Procedure Diagnosis: Same Procedure Performed: Transverse Abdominis Plane Nerve Block Left, Transverse Abdominis Plane Nerve Block Right - Procedure Transverse Abdominis Plane Nerve Block: The procedure was explained to the patient that it is for post-operative pain management and would be performed after surgery. Consent was obtained prior to surgery after a thorough discussion with the patient regarding the benefits and possible complications of transverse abdominis plane block. After the surgery had concluded and before the patient emerged from general anesthesia, time-out was held with the circulating nurse to re-confirm the appropriate block. With the patient in supine position, the ultrasound probe was placed transverse to the abdominal wall at the mid-axillary line above the iliac crest of the appropriate side. The skin, subcutaneous tissue, fat, external oblique muscle, internal oblique muscle, and the transverse abdominis muscle were identified. The general area of the block site was then prepped with Betadine three times. At this point, a # 21-gauge Stimuplex 4-inch needle was inserted posterior to and in plane with the ultrasound probe and directed anteriorly. Needle was advanced under direct ultrasound visualization until it reached the plane between the internal oblique and transverse abdominis muscles. After appropriate placement, 2mL of local anesthetic solution was injected. When the transverse abdominis plane was observed expanding in an ellipsoid way, the rest of the solution was slowly injected. A total of ___20___ mL of __.25___ % ___ marcaine was used for this block. The needle was then removed and sterile dressing was applied. Similarly, the same procedure was performed on the other side using the same medications. The patient had stable vital signs throughout and had no untoward complications after emergence from general anesthesia in the recovery room.
--- NOTE | 2018-02-25 18:31 | PCM.SURG1 ---
Surgeon's Initial Post Op Note - Surgeon's Notes Surgeon: Dr. Smith Associate Professor Of Kinesiology: Teofilo PGY3, Herrera PGY2, Jad BENITES Type of Anesthesia: General Endo, Block Regional (JUVE), Local Anesthesia Administered By: Dr. Eliseo White Pre-Operative Diagnosis: Adenocarcinoma of Transverse colon Operative Findings: Adenocarcinoma of Transverse colon, 2 Liver lesions Post-Operative Diagnosis: Adenocarcinoma of Transverse colon, 2 Liver lesions Operation Performed: Laparoscopic hand assist right hemicolectomy with primary anastomosis, liver biopsy Specimen/Specimens Removed: Right colon and proximal transverse colon Estimated Blood Loss: EBL {In ML}: 100 Blood Products Given: N/A Drains Used: No Drains Post-Op Condition: Good Date of Surgery/Procedure: 02/25/18 Time of Surgery/Procedure: 18:32
[2018-02-25 19:21] LABS: BASO % 0.1 % (0.0-2.0); EOS % 0.2 % (0.0-4.0); HEMOGLOBIN 9.9 g/dL (12.0-16.0); LYMPH # 0.6 K/uL (1.0-4.3); LYMPH % 5.6 % (20.0-40.0); MEAN CORPUSCULAR HEMOGLOBIN 23.8 pg (27.0-31.0); MEAN CORPUSCULAR HGB CONC 31.8 g/dL (33.0-37.0); MEAN PLATELET VOLUME 6.6 fl (7.2-11.7); MONO # 0.2 K/uL (0.0-0.8); MONO % 1.5 % (0.0-10.0); NEUT # 10.3 K/uL (1.8-7.0); NEUT % 92.6 % (50.0-75.0); PLATELET COUNT 540 K/uL (130-400); RBC 4.16 Mil/uL (3.80-5.20); RED CELL DISTRIBUTION WIDTH 17.4 % (11.5-14.5); WHITE BLOOD COUNT 11.1 K/uL (4.8-10.8)
[2018-02-25 19:52] LABS: ANISOCYTOSIS SLIGHT; HYPOCHROMIC SLIGHT; LYMPHOCYTE 7 % (20-50); NEUTROPHIL 93 % (42-75); OVALOCYTES SLIGHT; PLATELET ESTIMATE INCREASED (NORMAL); TOTAL CELLS COUNTED 100
--- NOTE | 2018-02-26 04:40 | OP ---
PROCEDURE DATE: 02/25/2018 PREOPERATIVE DIAGNOSES: Transverse colon cancer and large bowel obstruction secondary to mass. POSTOPERATIVE DIAGNOSES: Transverse colon cancer and large bowel obstruction secondary to mass. PROCEDURES: Laparoscopic hand-assisted extended right hemicolectomy and biopsy of the right lobe liver lesion. SURGEON: Chris Smith MD CHINCHILLA MACHINE OPERATOR: Sharon Red DO SECOND CHINCHILLA MACHINE OPERATOR: Lucas Silverman DO THIRD CHINCHILLA MACHINE OPERATOR: KAMARI Abbott ANESTHESIOLOGIST: Gerardo White MD ANESTHESIA: General endotracheal intubation. INTRAVENOUS FLUIDS: Crystalloids. ESTIMATED BLOOD LOSS: 100 mL. INTRAOPERATIVE FINDINGS: Obstructing tumor of the mid transverse colon and liver lesion that was biopsied. SPECIMEN: Right colon and liver biopsy. BRIEF HISTORY: Ms. Ulises Andres is a very pleasant 37-year-old female who is known to me from prior cholecystectomy. The patient presented to the hospital, complaining of abdominal pain as well as constipation and obstipation. Upon further investigation on the CAT scan, the patient was found to have apple-core lesion in the transverse colon on the CAT scan, and subsequent to that the patient underwent colonoscopy with Dr. Fuller from [facility] and was found to have a polyp in the sigmoid colon as well as a mass in the transverse colon that was biopsied. Biopsy came back as adenocarcinoma, moderately differentiated. Biopsy of the sigmoid colon polyp was to be villous adenoma. So, all the risks and benefits of the procedure were explained to the patient. With the patient having a full understanding of all the risks and benefits involved, informed consent was obtained and the patient was taken to the operating room for the above stated procedure. DESCRIPTION OF PROCEDURE: The patient was brought into the operating room and placed supine on the operating table. Bilateral Flowtron boots were applied to the patient's lower extremities. After successful induction of anesthesia and successful endotracheal intubation by the anesthesia team, a Bales catheter was inserted into the patient's urinary bladder. Subsequent to that, the patient's abdomen was prepped with ChloraPrep stick and draped in a standard surgical fashion. Prior to the beginning of the procedure, time-out was called in the room and everyone in the room were in agreement. The patient received prophylactic clindamycin and Flagyl antibiotics prior to the incision time. Using 10-blade scalpel knife, approximately 5-mm incision was made above the umbilicus in a longitudinal fashion. Subsequent to that, dissection was carried down with electrocautery for the subcutaneous tissues until the fascial layer was encountered. A small barbara was made in the fascia with electrocautery and subsequent to that, two Latasha clamps were placed on both ends of the fascia. At this point in time, the fascial layer was opened up a little bit more, and the peritoneal layer was encountered. Peritoneum was clamped with two Latasha clamps and transected with Metzenbaum scissors. At this point in time, the patient's abdominal cavity was entered. Once this was accomplished, the fascial layer was completely opened up and subsequent to that, the hand port was inserted into the patient's abdomen. Subsequent to that, pneumoperitoneum was achieved. At this point in time, a 5-mm 0-degree scope was introduced into the patient's abdomen. Abdomen was inspected. We were able to visualize the prior placed tube by utilization manager in the mid transverse colon. Subsequent to that, two 5-mm incisions were made in the upper mid abdomen and right upper quadrant of the patient's abdomen. Subsequent to that, two 5-mm trocars were introduced into the patient's abdomen. At this point in time, using traction with the hand, the right colon was mobilized along the white line of Toldt and subsequent to that, the hepatic flexure was mobilized with harmonic scalpel. The gastrocolic ligament was mobilized as well, and lesser sac was entered. At this point in time, the laparoscopic part of the procedure was done. The colon was exteriorized into the wound. A small barbara was made in the distal transverse colon mesentery. Latasha clamp was passed for the defect, and a blue load 75-mm ROSA stapler was passed. Distance from the tumor was approximately 8 to 9 cm, so at this point in time, the stapler was fired. Then, attention was turned to the terminal ileum. Small barbara was made in the mesentery of the terminal ileum. Subsequent to that, another Latasha clamp was placed for the mesenteric defect. Subsequent to that, another 75-mm ROSA stapler was passed for the mesenteric defect, and the stapler was fired. At this point in time, the mesentery of the right colon was taken with harmonic scalpel as well as with Impact LigaSure device. Once the mesentery of the colon was completely taken, the specimen was passed off to the [facility]. At this point in time, the distal transverse colon and terminal ileum were approximated in a [id number] fashion with three interrupted 3-0 silk sutures and needle. Subsequent to that, two enterotomies were made, one in the colon and one in the terminal ileum. Subsequent to that, two Allis clamps were placed in the lumen of the bowel. At this point in time, another 75-mm blue load ROSA stapler was introduced into both lumens of the bowel, and the stapler was fired. At this point in time, the defect of the bowel was closed with TA 60 stapler blue load. Once this was accomplished, a 3-0 chromic suture was used to reinforce the staple line. At this point in time, anastomosis was inspected and appeared to be patent and satisfactory. So at this point in time, the procedure was converted back to the laparoscopic hand-assisted. The pneumoperitoneum was achieved again, and 5-mm 0-degree scope was introduced into the patient's abdomen. The abdomen was inspected for hemostasis that appeared to be satisfactory. The anastomosis appeared to be satisfactory as well. Upon further investigation, we encountered a palpable nodule in the right lobe of the liver right next to the falciform ligament that was biopsied with a Kingsley-cut biopsy, and the specimen was passed off to the [facility] and passed off to the [facility] as a specimen. At this point in time, the prior made biopsy in the liver was cauterized, and hemostasis appeared to be satisfactory. So at this point in time, two Latasha clamps were placed on both ends of the fascia, and hand port device was extracted from the patient's abdomen. The fascial layer was closed with 0 looped PDS, one from above and one from below and tied in the middle. At this point in time, the prior placed 0 Vicryl stay sutures were tied together as well. The wound was irrigated and dried. The skin was approximated with the ada as well as 5-mm incisions for 5 mm trocars were approximated with ada as well. The patient's abdomen was washed and dried, and a clean dressing was applied to the side of the incisions. The patient was successfully extubated by the anesthesia team, transferred to the the [facility], and taken to the recovery room in a stable condition. At the end of the procedure, all instrument counts, needles, and sponges were correct. Chris Smith MD [facility] # [id number]
[2018-02-26 06:16] LABS: HEMOGLOBIN 8.8 g/dL (12.0-16.0); MEAN CELL VOLUME 75.5 fl (81.0-99.0); MEAN CORPUSCULAR HGB CONC 31.7 g/dL (33.0-37.0); RBC 3.69 Mil/uL (3.80-5.20); RED CELL DISTRIBUTION WIDTH 17.3 % (11.5-14.5); WHITE BLOOD COUNT 11.6 K/uL (4.8-10.8)
[2018-02-26 06:37] LABS: ALB/GLOB RATIO 1.1 (1.0-2.1); ALBUMIN 3.1 g/dL (3.5-5.0); ALT/SGPT 78 U/L (9-52); AST/SGOT 42 U/L (14-36); BLOOD UREA NITROGEN 4 mg/dl (7-17); CALCIUM 8.7 mg/dL (8.4-10.2); GFR NON-AFRICAN AMERICAN > 60
[2018-02-26] MEDS: Lactated Ringer's 1,000 ML IV SCH ×3 (06:39→18:39)
[2018-02-26] MEDS: Levothyroxine 75 MCG TAB PO SCH (06:40)
[2018-02-26] MEDS ORDERED: Oxycodone/Acetaminophen 5/325 mg Tab PO PRN (07:55)
--- NOTE | 2018-02-26 09:09 | CP.PCM.PN ---
Subjective - Date & Time of Evaluation Date of Evaluation: 02/26/18 Time of Evaluation: 07:00 - Subjective Subjective: Surgery: Dr. Smith Pt seen and examined. s/p Lap hand assisted extended R hemicolectomy; POD#1. No acute overnight events. Pt states she feels fine this morning and pain is well controlled, however she admits to feeling a little dizzy. Denies any nausea/ vomiting, fevers or chills. Objective - Vital Signs/Intake and Output Vital Signs (last 24 hours): Temp Pulse Resp BP Pulse Ox 98.1 F 71 18 90/57 L 99 02/26/18 07:53 02/26/18 08:39 02/26/18 07:53 02/26/18 08:39 02/26/18 07:53 Intake and Output: 02/26/18 02/26/18 06:59 18:59 Output Total 425 Balance -425 - Medications Medications: Current Medications Hydromorphone HCl (Dilaudid) 1 mg IVP Q4 PRN PRN Reason: Pain, severe (8-10) Last Admin: 02/21/18 23:25 Dose: 1 mg Hydromorphone HCl (Dilaudid) 0.5 mg IVP Q4 PRN PRN Reason: Pain, moderate (4-7) Last Admin: 02/25/18 19:25 Dose: 0.5 mg Hydromorphone HCl (Dilaudid 0.2 Mg/Ml Aurist) 0 mg IV PRN PRN; Protocol PRN Reason: Pain, severe (8-10) Last Admin: 02/25/18 19:33 Dose: 0 mg Multivitamins/Vitamin C 10 ml/Chromium/Copper/Manganese/Zinc 3 ml/ Amino Acids 1,013 mls @ 40 mls/hr IVPB .Q24H ONE Stop: 02/26/18 15:59 Last Admin: 02/25/18 21:00 Dose: 40 mls/hr Lactated Ringer's (Lactated Ringer's) 1,000 mls @ 125 mls/hr IV .Q8H [facility] Last Admin: 02/26/18 06:39 Dose: Not Given Levothyroxine Sodium (Synthroid) 75 mcg PO DAILY@0630 [facility] Last Admin: 02/26/18 06:40 Dose: 75 mcg Ondansetron HCl (Zofran Inj) 4 mg IVP Q6 PRN PRN Reason: Nausea/Vomiting Oxycodone/Acetaminophen (Percocet 5/325 Mg Tab) 1 tab PO Q4 PRN PRN Reason: Pain, Mild (1-3) Stop: 03/01/18 07:56 Pantoprazole Sodium (Protonix Inj) 40 mg IVP DAILY [facility] Last Admin: 02/26/18 09:03 Dose: 40 mg - Labs Labs: 02/26/18 05:55 02/26/18 05:55 PT 12.1 Seconds (9.8-13.1) 02/25/18 05:45 INR 1.1 02/25/18 05:45 APTT 29.2 Seconds (25.6-37.1) 02/25/18 05:45 - Constitutional Appears: Well, No Acute Distress - Head Exam Head Exam: ATRAUMATIC, NORMOCEPHALIC - Eye Exam Eye Exam: Normal appearance - ENT Exam ENT Exam: Mucous Membranes Moist - Respiratory Exam Respiratory Exam: NORMAL BREATHING PATTERN - Cardiovascular Exam Cardiovascular Exam: RRR - GI/Abdominal Exam GI & Abdominal Exam: Soft, Tenderness (around midline incision; dressing clean/ dry/intact ). absent: Distended, Guarding, Rebound - Extremities Exam Extremities Exam: absent: Calf Tenderness - Neurological Exam Neurological Exam: Alert, Awake, Oriented x3 - Skin Skin Exam: Dry, Warm Assessment and Plan - Assessment and Plan (Free Text) Assessment: 37F s/p Lap Hand assisted Extended R hemicolectomy for Adenocarcinoma in the transverse colon; POD#1 Plan: - DC anthony this AM with f/u void check - start CLD and will advance slowly with bowel function - f/u pathology report for further staging and treatment - liver lesion seen intra-op also biopsied; will f/u results - DC Dilaudid REPAIRER 2/2 dizziness, will start PRN - out of bed to chair this AM - encourage IS - d/w Dr. Sarah Red
--- NOTE | 2018-02-26 14:22 | PN ---
DATE: 02/26/2018 SUBJECTIVE: The patient is seen and examined. Interm events noted. Consults noted and appreciated. Surgical procedure noted and appreciated. The patient is status post transverse colon resection. The patient also had lymph node and liver biopsy done for suspected lesions. The patient feels okay, complains of pain consistent with postoperative status. No chest pain. No shortness of breath. PHYSICAL EXAMINATION: GENERAL: The patient is in no acute distress. VITAL SIGNS: Stable. HEART: S1 and S2, normal and regular. LUNGS: Good bilateral air entry. ABDOMEN: Postop with midline scar. No sign of acute complications. EXTREMITIES: No edema. No calf swelling. No tenderness. No acute ischemia. CREDIT ADJUSTER: Exam is essentially unchanged. DIAGNOSTIC DATA: Available diagnostic data reviewed. Pathology report was reviewed yesterday and the patient has adenocarcinoma. Perioperatively, the patient also was found to have lymph node, which was also detected and biopsied. The patient also had suspected liver lesion. Biopsy of which was also done. Report of all those are pending. ASSESSMENT PLAN: Overall, the patient with adenocarcinoma. Case was discussed with oncologist for official oncology consult today. Plan as ordered. Case and plan also discussed with the patient. Khai Tejeda MD
[2018-02-27] MEDS: Lactated Ringer's 1,000 ML IV SCH ×4 (01:32→21:20)
[2018-02-27] MEDS: Levothyroxine 75 MCG TAB PO SCH (05:38)
[2018-02-27 06:36] LABS: HEMOGLOBIN 7.9 g/dL (12.0-16.0); MEAN CELL VOLUME 74.9 fl (81.0-99.0); MEAN CORPUSCULAR HEMOGLOBIN 24.2 pg (27.0-31.0); MEAN CORPUSCULAR HGB CONC 32.3 g/dL (33.0-37.0); RBC 3.25 Mil/uL (3.80-5.20); RED CELL DISTRIBUTION WIDTH 17.3 % (11.5-14.5); WHITE BLOOD COUNT 7.6 K/uL (4.8-10.8)
[2018-02-27 07:30] LABS: BLOOD UREA NITROGEN 4 mg/dl (7-17); CALCIUM 8.4 mg/dL (8.4-10.2); GFR NON-AFRICAN AMERICAN > 60
--- NOTE | 2018-02-27 09:15 | CP.PCM.PN ---
<Bassam Ramos - Last Filed: 02/27/18 14:44> Subjective - Date & Time of Evaluation Date of Evaluation: 02/27/18 Time of Evaluation: 07:40 - Subjective Subjective: Pt seen and examined at bedside with Dr. Tejeda. Denies acute events overnight. Slowly tolerating PO diet. Reports thierno abdominal pain at ada Objective - Vital Signs/Intake and Output Vital Signs (last 24 hours): Temp Pulse Resp BP Pulse Ox 98.4 F 63 18 122/84 99 02/27/18 08:27 02/27/18 08:27 02/27/18 08:27 02/27/18 08:27 02/27/18 08:27 - Medications Medications: Current Medications Hydromorphone HCl (Dilaudid) 1 mg IVP Q4 PRN PRN Reason: Pain, severe (8-10) Last Admin: 02/27/18 05:24 Dose: 1 mg Hydromorphone HCl (Dilaudid) 0.5 mg IVP Q4 PRN PRN Reason: Pain, moderate (4-7) Last Admin: 02/26/18 18:37 Dose: 0.5 mg Lactated Ringer's (Lactated Ringer's) 1,000 mls @ 125 mls/hr IV .Q8H [facility] Last Admin: 02/27/18 01:32 Dose: 125 mls/hr Multivitamins/Vitamin C 10 ml/Chromium/Copper/Manganese/Zinc 3 ml/ Amino Acids 1,013 mls @ 40 mls/hr IVPB .Q24H ONE Stop: 02/27/18 15:59 Last Admin: 02/26/18 16:20 Dose: 40 mls/hr Levothyroxine Sodium (Synthroid) 75 mcg PO DAILY@0630 [facility] Last Admin: 02/27/18 05:38 Dose: 75 mcg Ondansetron HCl (Zofran Inj) 4 mg IVP Q6 PRN PRN Reason: Nausea/Vomiting Oxycodone/Acetaminophen (Percocet 5/325 Mg Tab) 1 tab PO Q4 PRN PRN Reason: Pain, Mild (1-3) Stop: 03/01/18 07:56 Pantoprazole Sodium (Protonix Inj) 40 mg IVP DAILY [facility] Last Admin: 02/26/18 09:03 Dose: 40 mg - Labs Labs: 02/27/18 06:15 02/27/18 06:15 PT 12.1 Seconds (9.8-13.1) 02/25/18 05:45 INR 1.1 02/25/18 05:45 APTT 29.2 Seconds (25.6-37.1) 02/25/18 05:45 Assessment and Plan - Assessment and Plan (Free Text) Plan: GI: and Surgery on board; further recommendations appreciated Pending liver biopsy and pathology for transverse adenocarcinoma of colon Continue with current treatment/care plan as ordered Oncology: Dr. Isabella Cherry: on board. further recs appreciated Case dw Dr. Nikhil Ramos MD PGY2 <Khai Tejeda - Last Filed: 02/28/18 07:42> Objective - Vital Signs/Intake and Output Vital Signs (last 24 hours): Temp Pulse Resp BP Pulse Ox 98.1 F 102 H 19 137/89 100 02/28/18 00:33 02/28/18 00:33 02/28/18 00:33 02/28/18 00:33 02/28/18 00:33 - Medications Medications: Current Medications Hydromorphone HCl (Dilaudid) 1 mg IVP Q4 PRN PRN Reason: Pain, severe (8-10) Last Admin: 02/27/18 22:14 Dose: 1 mg Hydromorphone HCl (Dilaudid) 0.5 mg IVP Q4 PRN PRN Reason: Pain, moderate (4-7) Last Admin: 02/26/18 18:37 Dose: 0.5 mg Lactated Ringer's (Lactated Ringer's) 1,000 mls @ 125 mls/hr IV .Q8H [facility] Last Admin: 02/28/18 06:56 Dose: 125 mls/hr Multivitamins/Vitamin C 10 ml/Chromium/Copper/Manganese/Zinc 3 ml/ Amino Acids 1,013 mls @ 40 mls/hr IV .Q24H [facility] Last Admin: 02/27/18 16:50 Dose: 40 mls/hr Levothyroxine Sodium (Synthroid) 75 mcg PO DAILY@0630 [facility] Last Admin: 02/28/18 06:56 Dose: 75 mcg Ondansetron HCl (Zofran Inj) 4 mg IVP Q6 PRN PRN Reason: Nausea/Vomiting Oxycodone/Acetaminophen (Percocet 5/325 Mg Tab) 1 tab PO Q4 PRN PRN Reason: Pain, Mild (1-3) Stop: 03/01/18 07:56 Pantoprazole Sodium (Protonix Inj) 40 mg IVP DAILY [facility] Last Admin: 02/27/18 09:23 Dose: 40 mg - Labs Labs: 02/28/18 06:00 02/28/18 06:00 PT 12.1 Seconds (9.8-13.1) 02/25/18 05:45 INR 1.1 02/25/18 05:45 APTT 29.2 Seconds (25.6-37.1) 02/25/18 05:45 Assessment and Plan - Assessment and Plan (Free Text) Plan: Patient was personally seen and examined by me in rounds with residents. Available labs and diagnostic data reviewed. Case, Patient's condition and management plan discussed with residents in rounds. Agree with resident's progress note. Plan: As ordered.
--- NOTE | 2018-02-27 09:33 | CP.PCM.CON ---
History of Present Illness - History of Present Illness History of Present Illness: This is a 37 yrs old female 2who is 3 months , and 9 days post cholecystectomy who came to the hospital for abdominal pain and bowel obstruction. She had conservative treatment for about 3 days ,then a endoscopy was done which showed a mass in the transverse colon, biopsy of which showed an adenocarcinoma. She underwent a lap/hand assisted colectomy ,final path is awaited. The CT scan had not shown any liver lesions.,but during surgery the surgeon found 2 lesions in the liver and a few in the peritoneum. the final path report is awaited. She has had 2 csections She is also hypothyroid. No smoking or alcohol abuse. Past Patient History - Infectious Disease Hx of Infectious Diseases: None - Past Medical History & Family History Past Medical History?: Yes - Past Social History Smoking Status: Never Smoked Alcohol: None Drugs: Denies - CARDIAC Hx Cardiac Disorders: No - PULMONARY Hx Respiratory Disorders: No - NEUROLOGICAL Hx Neurological Disorder: No - HEENT Hx HEENT Problems: No - RENAL Hx Chronic Kidney Disease: No - ENDOCRINE/METABOLIC Hx Endocrine Disorders: Yes Hx Hypothyroidism: Yes - HEMATOLOGICAL/ONCOLOGICAL Hx AIDS: No Hx Human Immunodeficiency Virus (HIV): No - INTEGUMENTARY Hx Dermatological Problems: No - MUSCULOSKELETAL/RHEUMATOLOGICAL Hx Musculoskeletal Disorders: No Hx Falls: No - GASTROINTESTINAL Hx Gall Bladder Disease: Yes - GENITOURINARY/GYNECOLOGICAL Hx Genitourinary Disorders: No Other/Comment: uterine fibroid - PSYCHIATRIC Hx Psychophysiologic Disorder: No Hx Substance Use: No - SURGICAL HISTORY Hx Appendectomy: Yes Hx Section: Yes (x2) Hx Cholecystectomy: Yes (s/p lap zack feb 12) - ANESTHESIA Hx Anesthesia: Yes Hx Anesthesia Reactions: No Hx Malignant Hyperthermia: No Meds Allergies/Adverse Reactions: Allergies Allergy/AdvReac Type Severity Reaction Status Date / Time Penicillins Allergy RASH Verified 02/10/18 07:00 - Medications Medications: Current Medications Hydromorphone HCl (Dilaudid) 1 mg IVP Q4 PRN PRN Reason: Pain, severe (8-10) Last Admin: 02/27/18 09:19 Dose: 1 mg Hydromorphone HCl (Dilaudid) 0.5 mg IVP Q4 PRN PRN Reason: Pain, moderate (4-7) Last Admin: 02/26/18 18:37 Dose: 0.5 mg Lactated Ringer's (Lactated Ringer's) 1,000 mls @ 125 mls/hr IV .Q8H [facility] Last Admin: 02/27/18 01:32 Dose: 125 mls/hr Multivitamins/Vitamin C 10 ml/Chromium/Copper/Manganese/Zinc 3 ml/ Amino Acids 1,013 mls @ 40 mls/hr IVPB .Q24H ONE Stop: 02/27/18 15:59 Last Admin: 02/26/18 16:20 Dose: 40 mls/hr Multivitamins/Vitamin C 10 ml/Chromium/Copper/Manganese/Zinc 3 ml/ Amino Acids 1,013 mls @ 40 mls/hr IV .Q24H [facility] Levothyroxine Sodium (Synthroid) 75 mcg PO DAILY@0630 [facility] Last Admin: 02/27/18 05:38 Dose: 75 mcg Ondansetron HCl (Zofran Inj) 4 mg IVP Q6 PRN PRN Reason: Nausea/Vomiting Oxycodone/Acetaminophen (Percocet 5/325 Mg Tab) 1 tab PO Q4 PRN PRN Reason: Pain, Mild (1-3) Stop: 03/01/18 07:56 Pantoprazole Sodium (Protonix Inj) 40 mg IVP DAILY [facility] Last Admin: 02/27/18 09:23 Dose: 40 mg Physical Exam - Additional Findings Additional findings: Physical exam; Alert,well oriented in no acute distress. neck; Supple, no adenopathy Chest; Clear, no rales or rhonchi heart; RSR, no murmur Abd; Soft,no mass, no h/s megaly Results - Vital Signs Recent Vital Signs: Last Vital Signs Temp 98.4 F 02/27/18 08:27 Pulse 63 02/27/18 08:27 Resp 18 02/27/18 08:27 BP 122/84 02/27/18 08:27 Pulse Ox 99 02/27/18 08:27 - Labs Result Diagrams: 02/27/18 06:15 02/27/18 06:15 Labs: Laboratory Results - last 24 hr 02/27/18 02/27/18 06:15 06:15 WBC 7.6 RBC 3.25 L Hgb 7.9 L Hct 24.4 L MCV 74.9 L MCH 24.2 L MCHC 32.3 L RDW 17.3 H Plt Count 442 H Sodium 137 Potassium 4.0 Chloride 103 Carbon Dioxide 29 Anion Gap 9 L BUN 4 L Creatinine 0.4 L Est GFR ( Amer) > 60 Est GFR (Non-Af Amer) > 60 Random Glucose 106 H Calcium 8.4 Phosphorus 3.3 Magnesium 1.4 L Assessment & Plan - Assessment and Plan (Free Text) Assessment: Impression; Colon cancer, Final pathology not yet available, S/P cholecystectomy 10 days ago Plan: Plan; Awaiting final Path report to make a decision to see what the next step re chemo should be.
[2018-02-27] MEDS ORDERED: Magnesium Sulfate 1 gm in D5W 1 GM/100 ML BAG IVPB ONE (11:40)
--- NOTE | 2018-02-27 12:13 | CP.PCM.PN ---
Subjective - Date & Time of Evaluation Date of Evaluation: 02/27/18 Time of Evaluation: 11:50 - Subjective Subjective: Patient was seen and examined at the bedside. Reports some marv-incisional pain , no flatus or bowel movements yet, tolerating clear liquid diet. Objective - Vital Signs/Intake and Output Vital Signs (last 24 hours): Temp Pulse Resp BP Pulse Ox 98.4 F 63 18 122/84 99 02/27/18 08:27 02/27/18 08:27 02/27/18 08:27 02/27/18 08:27 02/27/18 08:27 - Medications Medications: Current Medications Hydromorphone HCl (Dilaudid) 1 mg IVP Q4 PRN PRN Reason: Pain, severe (8-10) Last Admin: 02/27/18 09:19 Dose: 1 mg Hydromorphone HCl (Dilaudid) 0.5 mg IVP Q4 PRN PRN Reason: Pain, moderate (4-7) Last Admin: 02/26/18 18:37 Dose: 0.5 mg Lactated Ringer's (Lactated Ringer's) 1,000 mls @ 125 mls/hr IV .Q8H [facility] Last Admin: 02/27/18 10:52 Dose: 125 mls/hr Multivitamins/Vitamin C 10 ml/Chromium/Copper/Manganese/Zinc 3 ml/ Amino Acids 1,013 mls @ 40 mls/hr IVPB .Q24H ONE Stop: 02/27/18 15:59 Last Admin: 02/26/18 16:20 Dose: 40 mls/hr Multivitamins/Vitamin C 10 ml/Chromium/Copper/Manganese/Zinc 3 ml/ Amino Acids 1,013 mls @ 40 mls/hr IV .Q24H [facility] Magnesium Sulfate/Dextrose (Magnesium Sulfate 1 Gm/100 Ml D5w) 1 gm in 100 mls @ 100 mls/hr IVPB ONCE ONE PRN Reason: 1 GM/HR Stop: 02/27/18 12:39 Levothyroxine Sodium (Synthroid) 75 mcg PO DAILY@0630 [facility] Last Admin: 02/27/18 05:38 Dose: 75 mcg Ondansetron HCl (Zofran Inj) 4 mg IVP Q6 PRN PRN Reason: Nausea/Vomiting Oxycodone/Acetaminophen (Percocet 5/325 Mg Tab) 1 tab PO Q4 PRN PRN Reason: Pain, Mild (1-3) Stop: 03/01/18 07:56 Pantoprazole Sodium (Protonix Inj) 40 mg IVP DAILY [facility] Last Admin: 02/27/18 09:23 Dose: 40 mg - Labs Labs: 02/27/18 06:15 02/27/18 06:15 PT 12.1 Seconds (9.8-13.1) 02/25/18 05:45 INR 1.1 02/25/18 05:45 APTT 29.2 Seconds (25.6-37.1) 02/25/18 05:45 - Constitutional Appears: Well, Non-toxic, No Acute Distress - Head Exam Head Exam: ATRAUMATIC, NORMAL INSPECTION, NORMOCEPHALIC - Eye Exam Eye Exam: EOMI, Normal appearance, PERRL Pupil Exam: NORMAL ACCOMODATION, PERRL - ENT Exam ENT Exam: Mucous Membranes Moist, Normal Exam - Neck Exam Neck Exam: Full ROM, Normal Inspection - Respiratory Exam Respiratory Exam: Clear to Ausculation Bilateral, NORMAL BREATHING PATTERN - Cardiovascular Exam Cardiovascular Exam: REGULAR RHYTHM, +S1, +S2 - GI/Abdominal Exam GI & Abdominal Exam: Soft, Hypoactive Bowel Sounds Additional comments: soft, mild marv-incisional tenderness, ND, no rebound, no guarding, incisions clean, no erythema, no drainage, ada in place - Rectal Exam Rectal Exam: Deferred - Extremities Exam Extremities Exam: Full ROM, Normal Inspection - Back Exam Back Exam: NORMAL INSPECTION - Neurological Exam Neurological Exam: Alert, Awake, CN II-XII Intact, Oriented x3 - Psychiatric Exam Psychiatric exam: Normal Affect, Normal Mood - Skin Skin Exam: Dry, Intact, Normal Color, Warm Assessment and Plan - Assessment and Plan (Free Text) Assessment: 37 y.o. female s/p Laparoscopic Hand-Assisted Right hemicolectomy Plan: - Keep on clear liquid diet - IV fluids - Pain control - Insentive spirometry - DVT ppx - Out of bed and ambulate - Repeat labs in am - Will follow
--- NOTE | 2018-02-27 15:32 | CP.PCM.PN ---
Subjective - Date & Time of Evaluation Date of Evaluation: 02/27/18 Time of Evaluation: 15:24 - Subjective Subjective: Patient POD2 after extended right hemicolectomy. Patient has been referred to oncology. Pathology including MSI of surgical specimen pending. Objective - Vital Signs/Intake and Output Vital Signs (last 24 hours): Temp Pulse Resp BP Pulse Ox 98.4 F 63 18 122/84 99 02/27/18 08:27 02/27/18 08:27 02/27/18 08:27 02/27/18 08:27 02/27/18 08:27 - Medications Medications: Current Medications Hydromorphone HCl (Dilaudid) 1 mg IVP Q4 PRN PRN Reason: Pain, severe (8-10) Last Admin: 02/27/18 13:29 Dose: 1 mg Hydromorphone HCl (Dilaudid) 0.5 mg IVP Q4 PRN PRN Reason: Pain, moderate (4-7) Last Admin: 02/26/18 18:37 Dose: 0.5 mg Lactated Ringer's (Lactated Ringer's) 1,000 mls @ 125 mls/hr IV .Q8H [facility] Last Admin: 02/27/18 10:52 Dose: 125 mls/hr Multivitamins/Vitamin C 10 ml/Chromium/Copper/Manganese/Zinc 3 ml/ Amino Acids 1,013 mls @ 40 mls/hr IVPB .Q24H ONE Stop: 02/27/18 15:59 Last Admin: 02/26/18 16:20 Dose: 40 mls/hr Multivitamins/Vitamin C 10 ml/Chromium/Copper/Manganese/Zinc 3 ml/ Amino Acids 1,013 mls @ 40 mls/hr IV .Q24H [facility] Levothyroxine Sodium (Synthroid) 75 mcg PO DAILY@0630 [facility] Last Admin: 02/27/18 05:38 Dose: 75 mcg Ondansetron HCl (Zofran Inj) 4 mg IVP Q6 PRN PRN Reason: Nausea/Vomiting Oxycodone/Acetaminophen (Percocet 5/325 Mg Tab) 1 tab PO Q4 PRN PRN Reason: Pain, Mild (1-3) Stop: 03/01/18 07:56 Pantoprazole Sodium (Protonix Inj) 40 mg IVP DAILY [facility] Last Admin: 02/27/18 09:23 Dose: 40 mg - Labs Labs: 02/27/18 06:15 02/27/18 06:15 PT 12.1 Seconds (9.8-13.1) 02/25/18 05:45 INR 1.1 02/25/18 05:45 APTT 29.2 Seconds (25.6-37.1) 02/25/18 05:45 Assessment and Plan (1) Abdominal pain Status: Acute
[2018-02-28 06:38] LABS: BASO % 0.3 % (0.0-2.0); EOS # 0.2 K/uL (0.0-0.7); LYMPH # 1.4 K/uL (1.0-4.3); MEAN CELL VOLUME 74.7 fl (81.0-99.0); MEAN CORPUSCULAR HEMOGLOBIN 24.7 pg (27.0-31.0); MEAN CORPUSCULAR HGB CONC 33.1 g/dL (33.0-37.0); MONO # 0.4 K/uL (0.0-0.8); MONO % 4.6 % (0.0-10.0); NEUT % 77.1 % (50.0-75.0); RBC 3.23 Mil/uL (3.80-5.20); RED CELL DISTRIBUTION WIDTH 18.3 % (11.5-14.5); WHITE BLOOD COUNT 9.1 K/uL (4.8-10.8)
[2018-02-28 06:54] LABS: BLOOD UREA NITROGEN 4 mg/dl (7-17); CALCIUM 8.7 mg/dL (8.4-10.2); GFR NON-AFRICAN AMERICAN > 60
[2018-02-28] MEDS: Levothyroxine 75 MCG TAB PO SCH (06:56)
[2018-02-28] MEDS: Lactated Ringer's 1,000 ML IV SCH (06:56)
--- NOTE | 2018-02-28 10:04 | CP.PCM.PN ---
Subjective - Date & Time of Evaluation Date of Evaluation: 02/28/18 Time of Evaluation: 10:01 - Subjective Subjective: General Surgery Pt seen and examined this AM. She reports having 2 BMs since last night and feeling nauseous this AM. She currently denies having nausea now. She is tolerating clear liquid diet. Afebrile, has been ambulatory. Labs and vitals noted. 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 Pt to start full liquids today, if tolerates then to start regular tomorrow D/C IVF and PPN when bags finish F/U labs tomorrow Lovenox started Encourage OOB and IS Pain management prn Pathology pending Objective - Vital Signs/Intake and Output Vital Signs (last 24 hours): Temp Pulse Resp BP Pulse Ox 98.6 F 83 20 127/88 100 02/28/18 08:53 02/28/18 08:53 02/28/18 08:53 02/28/18 08:53 02/28/18 08:53 - Medications Medications: Current Medications Enoxaparin Sodium (Lovenox) 40 mg SC DAILY [facility] PRN Reason: Protocol Hydromorphone HCl (Dilaudid) 1 mg IVP Q4 PRN PRN Reason: Pain, severe (8-10) Last Admin: 02/27/18 22:14 Dose: 1 mg Hydromorphone HCl (Dilaudid) 0.5 mg IVP Q4 PRN PRN Reason: Pain, moderate (4-7) Last Admin: 02/26/18 18:37 Dose: 0.5 mg Levothyroxine Sodium (Synthroid) 75 mcg PO DAILY@0630 [facility] Last Admin: 02/28/18 06:56 Dose: 75 mcg Ondansetron HCl (Zofran Inj) 4 mg IVP Q6 PRN PRN Reason: Nausea/Vomiting Oxycodone/Acetaminophen (Percocet 5/325 Mg Tab) 1 tab PO Q4 PRN PRN Reason: Pain, Mild (1-3) Stop: 03/01/18 07:56 Pantoprazole Sodium (Protonix Inj) 40 mg IVP DAILY [facility] Last Admin: 02/28/18 08:28 Dose: 40 mg - Labs Labs: 02/28/18 06:00 02/28/18 06:00 PT 12.1 Seconds (9.8-13.1) 02/25/18 05:45 INR 1.1 02/25/18 05:45 APTT 29.2 Seconds (25.6-37.1) 02/25/18 05:45
--- NOTE | 2018-02-28 10:26 | CP.PCM.PN ---
Subjective - Date & Time of Evaluation Date of Evaluation: 02/28/18 Time of Evaluation: 10:24 - Subjective Subjective: Pt as some abdomina discomfortpost operatively. She has tolerted the liquids so far and wll gwet a full diet toay Her final pat report is not yet available. Objective - Vital Signs/Intake and Output Vital Signs (last 24 hours): Temp Pulse Resp BP Pulse Ox 98.6 F 83 20 127/88 100 02/28/18 08:53 02/28/18 08:53 02/28/18 08:53 02/28/18 08:53 02/28/18 08:53 - Medications Medications: Current Medications Enoxaparin Sodium (Lovenox) 40 mg SC DAILY [facility] PRN Reason: Protocol Hydromorphone HCl (Dilaudid) 1 mg IVP ONCE ONE Stop: 02/28/18 10:12 Levothyroxine Sodium (Synthroid) 75 mcg PO DAILY@0630 [facility] Last Admin: 02/28/18 06:56 Dose: 75 mcg Morphine Sulfate (Morphine) 4 mg IVP Q4 PRN PRN Reason: Pain, severe (8-10) Ondansetron HCl (Zofran Inj) 4 mg IVP Q6 PRN PRN Reason: Nausea/Vomiting Oxycodone/Acetaminophen (Percocet 5/325 Mg Tab) 1 tab PO Q4 PRN PRN Reason: Pain, Mild (1-3) Stop: 03/01/18 07:56 Oxycodone/Acetaminophen (Percocet 5/325 Mg Tab) 2 tab PO Q6 PRN PRN Reason: Pain, moderate (4-7) Stop: 03/03/18 10:07 Pantoprazole Sodium (Protonix Inj) 40 mg IVP DAILY [facility] Last Admin: 02/28/18 08:28 Dose: 40 mg - Labs Labs: 02/28/18 06:00 02/28/18 06:00 PT 12.1 Seconds (9.8-13.1) 02/25/18 05:45 INR 1.1 02/25/18 05:45 APTT 29.2 Seconds (25.6-37.1) 02/25/18 05:45
[2018-02-28] MEDS: Enoxaparin 40 mg Syringe SC SCH (12:59)
--- NOTE | 2018-02-28 13:24 | CP.PCM.PN ---
<Bassam Ramos - Last Filed: 02/28/18 16:15> Subjective - Date & Time of Evaluation Date of Evaluation: 02/28/18 Time of Evaluation: 07:40 - Subjective Subjective: Pt seen and examined at bedside with Dr. Tejeda Pt denied acute events overnight. reported a bowel movement without blood or mucus. tolerating liquid diet. Objective - Vital Signs/Intake and Output Vital Signs (last 24 hours): Temp Pulse Resp BP Pulse Ox 98.6 F 83 20 127/88 100 02/28/18 08:53 02/28/18 08:53 02/28/18 08:53 02/28/18 08:53 02/28/18 08:53 - Medications Medications: Current Medications Enoxaparin Sodium (Lovenox) 40 mg SC DAILY [facility] PRN Reason: Protocol Last Admin: 02/28/18 12:59 Dose: 40 mg Levothyroxine Sodium (Synthroid) 75 mcg PO DAILY@0630 [facility] Last Admin: 02/28/18 06:56 Dose: 75 mcg Morphine Sulfate (Morphine) 4 mg IVP Q4 PRN PRN Reason: Pain, severe (8-10) Ondansetron HCl (Zofran Inj) 4 mg IVP Q6 PRN PRN Reason: Nausea/Vomiting Oxycodone/Acetaminophen (Percocet 5/325 Mg Tab) 1 tab PO Q4 PRN PRN Reason: Pain, Mild (1-3) Stop: 03/01/18 07:56 Oxycodone/Acetaminophen (Percocet 5/325 Mg Tab) 2 tab PO Q6 PRN PRN Reason: Pain, moderate (4-7) Stop: 03/03/18 10:07 Pantoprazole Sodium (Protonix Inj) 40 mg IVP DAILY [facility] Last Admin: 02/28/18 08:28 Dose: 40 mg - Labs Labs: 02/28/18 06:00 02/28/18 06:00 PT 12.1 Seconds (9.8-13.1) 02/25/18 05:45 INR 1.1 02/25/18 05:45 APTT 29.2 Seconds (25.6-37.1) 02/25/18 05:45 - Constitutional Appears: Well, No Acute Distress - Eye Exam Eye Exam: EOMI - Respiratory Exam Respiratory Exam: Clear to Ausculation Bilateral, NORMAL BREATHING PATTERN. absent: Wheezes - Cardiovascular Exam Cardiovascular Exam: +S1, +S2 - GI/Abdominal Exam GI & Abdominal Exam: Soft, Tenderness (at ada), Normal Bowel Sounds - Neurological Exam Neurological Exam: Alert, Awake, CN II-XII Intact, Oriented x3 - Psychiatric Exam Psychiatric exam: Normal Affect, Normal Mood Assessment and Plan - Assessment and Plan (Free Text) Plan: R hemicolectomy POD2 Oncology: Dr. Carmencita Cherry: Pending final pathology report for further care Surgery; start full liquid diet today and then to reg tomorrow. GI: Dr. Fuller. further recs appreciated Continue current treatment/care as ordered case dw Dr. Nikhil Ramos MD PGY2 <Khai Tejeda - Last Filed: 03/01/18 09:36> Objective - Vital Signs/Intake and Output Vital Signs (last 24 hours): Temp Pulse Resp BP Pulse Ox 98.6 F 80 20 106/71 99 03/01/18 08:35 03/01/18 08:35 03/01/18 08:35 03/01/18 08:35 03/01/18 08:35 - Medications Medications: Current Medications Enoxaparin Sodium (Lovenox) 40 mg SC DAILY [facility] PRN Reason: Protocol Last Admin: 03/01/18 08:51 Dose: 40 mg Levothyroxine Sodium (Synthroid) 75 mcg PO DAILY@0630 [facility] Last Admin: 03/01/18 06:32 Dose: 75 mcg Ondansetron HCl (Zofran Inj) 4 mg IVP Q6 PRN PRN Reason: Nausea/Vomiting Oxycodone/Acetaminophen (Percocet 5/325 Mg Tab) 2 tab PO Q6 PRN PRN Reason: Pain, moderate (4-7) Stop: 03/03/18 10:07 Last Admin: 02/28/18 23:10 Dose: 2 tab Pantoprazole Sodium (Protonix Inj) 40 mg IVP DAILY [facility] Last Admin: 03/01/18 08:51 Dose: 40 mg - Labs Labs: 03/01/18 05:15 03/01/18 05:15 PT 12.1 Seconds (9.8-13.1) 02/25/18 05:45 INR 1.1 02/25/18 05:45 APTT 29.2 Seconds (25.6-37.1) 02/25/18 05:45 Assessment and Plan - Assessment and Plan (Free Text) Plan: Patient was personally seen and examined by me in rounds with residents. Available labs and diagnostic data reviewed. Case, Patient's condition and management plan discussed with residents in rounds. Agree with resident's progress note. Plan: As ordered.
[2018-02-28] MEDS: Oxycodone/Acetaminophen 5/325 mg Tab PO PRN ×2 (16:19→23:10)
[2018-03-01 00:25] VITALS: O2SAT 99
[2018-03-01 05:54] LABS: BASO % 0.3 % (0.0-2.0); EOS # 0.2 K/uL (0.0-0.7); EOS % 3.2 % (0.0-4.0); HEMOGLOBIN 8.6 g/dL (12.0-16.0); LYMPH # 1.6 K/uL (1.0-4.3); LYMPH % 26.4 % (20.0-40.0); MEAN CELL VOLUME 74.4 fl (81.0-99.0); MEAN CORPUSCULAR HGB CONC 32.2 g/dL (33.0-37.0); MEAN PLATELET VOLUME 6.8 fl (7.2-11.7); MONO # 0.4 K/uL (0.0-0.8); MONO % 5.8 % (0.0-10.0); NEUT % 64.3 % (50.0-75.0); NRBC % 0.1 % (0.0-0.0); RBC 3.57 Mil/uL (3.80-5.20); WHITE BLOOD COUNT 6.2 K/uL (4.8-10.8)
[2018-03-01] MEDS: Levothyroxine 75 MCG TAB PO SCH (06:32)
[2018-03-01 06:57] LABS: ALB/GLOB RATIO 1.1 (1.0-2.1); ALT/SGPT 61 U/L (9-52); AST/SGOT 54 U/L (14-36); BLOOD UREA NITROGEN 2 mg/dl (7-17); CALCIUM 8.8 mg/dL (8.4-10.2); GFR NON-AFRICAN AMERICAN > 60
--- NOTE | 2018-03-01 07:47 | CP.PCM.PN ---
<Sharon Red - Last Filed: 03/01/18 07:58> Subjective - Date & Time of Evaluation Date of Evaluation: 03/01/18 Time of Evaluation: 07:40 - Subjective Subjective: Surgery: Dr. Smith Pt seen and examined. No acute overnight events. Pt states she feels well this morning and her pain is well controlled. She admits to tolerating liquids and continues to have loose BMs. Denies any other complaints at this time. Objective - Vital Signs/Intake and Output Vital Signs (last 24 hours): Temp Pulse Resp BP Pulse Ox 97.9 F 94 H 19 138/85 99 03/01/18 00:00 03/01/18 00:00 03/01/18 00:00 03/01/18 00:00 03/01/18 00:00 - Medications Medications: Current Medications Enoxaparin Sodium (Lovenox) 40 mg SC DAILY [facility] PRN Reason: Protocol Last Admin: 02/28/18 12:59 Dose: 40 mg Levothyroxine Sodium (Synthroid) 75 mcg PO DAILY@0630 [facility] Last Admin: 03/01/18 06:32 Dose: 75 mcg Morphine Sulfate (Morphine) 4 mg IVP Q4 PRN PRN Reason: Pain, severe (8-10) Ondansetron HCl (Zofran Inj) 4 mg IVP Q6 PRN PRN Reason: Nausea/Vomiting Oxycodone/Acetaminophen (Percocet 5/325 Mg Tab) 1 tab PO Q4 PRN PRN Reason: Pain, Mild (1-3) Stop: 03/01/18 07:56 Oxycodone/Acetaminophen (Percocet 5/325 Mg Tab) 2 tab PO Q6 PRN PRN Reason: Pain, moderate (4-7) Stop: 03/03/18 10:07 Last Admin: 02/28/18 23:10 Dose: 2 tab Pantoprazole Sodium (Protonix Inj) 40 mg IVP DAILY [facility] Last Admin: 02/28/18 08:28 Dose: 40 mg - Labs Labs: 03/01/18 05:15 03/01/18 05:15 PT 12.1 Seconds (9.8-13.1) 02/25/18 05:45 INR 1.1 02/25/18 05:45 APTT 29.2 Seconds (25.6-37.1) 02/25/18 05:45 - Constitutional Appears: Well, No Acute Distress - Head Exam Head Exam: ATRAUMATIC, NORMOCEPHALIC - ENT Exam ENT Exam: Mucous Membranes Moist - Respiratory Exam Respiratory Exam: NORMAL BREATHING PATTERN - Cardiovascular Exam Cardiovascular Exam: RRR - GI/Abdominal Exam GI & Abdominal Exam: Soft, Tenderness (around midline incision, ada in place , C/D/I). 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 Sarah Red <Chris Smith - Last Filed: 03/01/18 11:32> Subjective - Date & Time of Evaluation Time of Evaluation: 11:00 - Subjective Subjective: Patient was seen and examined at the bedside. Agree with resident's note above. Passing flatus and having bowel movements, tolerating regular diet. Objective - Vital Signs/Intake and Output Vital Signs (last 24 hours): Temp Pulse Resp BP Pulse Ox 98.6 F 80 20 106/71 99 03/01/18 08:35 03/01/18 08:35 03/01/18 08:35 03/01/18 08:35 03/01/18 08:35 - Medications Medications: Current Medications Enoxaparin Sodium (Lovenox) 40 mg SC DAILY [facility] PRN Reason: Protocol Last Admin: 03/01/18 08:51 Dose: 40 mg Levothyroxine Sodium (Synthroid) 75 mcg PO DAILY@0630 [facility] Last Admin: 03/01/18 06:32 Dose: 75 mcg Ondansetron HCl (Zofran Inj) 4 mg IVP Q6 PRN PRN Reason: Nausea/Vomiting Oxycodone/Acetaminophen (Percocet 5/325 Mg Tab) 2 tab PO Q6 PRN PRN Reason: Pain, moderate (4-7) Stop: 03/03/18 10:07 Last Admin: 02/28/18 23:10 Dose: 2 tab Pantoprazole Sodium (Protonix Inj) 40 mg IVP DAILY [facility] Last Admin: 03/01/18 08:51 Dose: 40 mg - Labs Labs: 03/01/18 05:15 03/01/18 05:15 PT 12.1 Seconds (9.8-13.1) 02/25/18 05:45 INR 1.1 02/25/18 05:45 APTT 29.2 Seconds (25.6-37.1) 02/25/18 05:45 - GI/Abdominal Exam Additional comments: soft, marv-incisional tenderness, ND, BS+, no rebound, no guarding, incisions clean, no erythema, no drainage, ada in place Assessment and Plan - Assessment and Plan (Free Text) Plan: - Pain control - Regular diet - Patient is clear for discharge home from general surgery stand point - Patient will follow up with Dr. Cherry for chemotherapy - Patient will follow up with me in the office in 10 days to 2 weeks for post- op visit
--- NOTE | 2018-03-01 08:30 | CP.PCM.PN ---
Subjective - Date & Time of Evaluation Date of Evaluation: 03/01/18 Time of Evaluation: 07:50 Objective - Vital Signs/Intake and Output Vital Signs (last 24 hours): Temp Pulse Resp BP Pulse Ox 97.9 F 94 H 19 138/85 99 03/01/18 00:00 03/01/18 00:00 03/01/18 00:00 03/01/18 00:00 03/01/18 00:00 - Medications Medications: Current Medications Enoxaparin Sodium (Lovenox) 40 mg SC DAILY [facility] PRN Reason: Protocol Last Admin: 02/28/18 12:59 Dose: 40 mg Levothyroxine Sodium (Synthroid) 75 mcg PO DAILY@0630 [facility] Last Admin: 03/01/18 06:32 Dose: 75 mcg Ondansetron HCl (Zofran Inj) 4 mg IVP Q6 PRN PRN Reason: Nausea/Vomiting Oxycodone/Acetaminophen (Percocet 5/325 Mg Tab) 2 tab PO Q6 PRN PRN Reason: Pain, moderate (4-7) Stop: 03/03/18 10:07 Last Admin: 02/28/18 23:10 Dose: 2 tab Pantoprazole Sodium (Protonix Inj) 40 mg IVP DAILY [facility] Last Admin: 02/28/18 08:28 Dose: 40 mg - Labs Labs: 03/01/18 05:15 03/01/18 05:15 PT 12.1 Seconds (9.8-13.1) 02/25/18 05:45 INR 1.1 02/25/18 05:45 APTT 29.2 Seconds (25.6-37.1) 02/25/18 05:45
[2018-03-01 08:35] VITALS: BP 106/71; PULSE 80; RESP 20; TEMP 98.6
[2018-03-01] MEDS: Enoxaparin 40 mg Syringe SC SCH (08:51)
--- NOTE | 2018-03-01 09:20 | CP.PCM.PN ---
Subjective - Date & Time of Evaluation Date of Evaluation: 03/01/18 Time of Evaluation: 09:16 - Subjective Subjective: I had a long talk with the patient re the fact that she has liver metastasis and would need chemotherapy. After 3 cycles will reevaluate the liver mets and if they are smaller, may consider resection of the same. the chemo was explained to her,and she understood that she will need to be admitted for chemo for 48 hrs. Objective - Vital Signs/Intake and Output Vital Signs (last 24 hours): Temp Pulse Resp BP Pulse Ox 98.6 F 80 20 106/71 99 03/01/18 08:35 03/01/18 08:35 03/01/18 08:35 03/01/18 08:35 03/01/18 08:35 - Medications Medications: Current Medications Enoxaparin Sodium (Lovenox) 40 mg SC DAILY [facility] PRN Reason: Protocol Last Admin: 03/01/18 08:51 Dose: 40 mg Levothyroxine Sodium (Synthroid) 75 mcg PO DAILY@0630 [facility] Last Admin: 03/01/18 06:32 Dose: 75 mcg Ondansetron HCl (Zofran Inj) 4 mg IVP Q6 PRN PRN Reason: Nausea/Vomiting Oxycodone/Acetaminophen (Percocet 5/325 Mg Tab) 2 tab PO Q6 PRN PRN Reason: Pain, moderate (4-7) Stop: 03/03/18 10:07 Last Admin: 02/28/18 23:10 Dose: 2 tab Pantoprazole Sodium (Protonix Inj) 40 mg IVP DAILY [facility] Last Admin: 03/01/18 08:51 Dose: 40 mg - Labs Labs: 03/01/18 05:15 03/01/18 05:15 PT 12.1 Seconds (9.8-13.1) 02/25/18 05:45 INR 1.1 02/25/18 05:45 APTT 29.2 Seconds (25.6-37.1) 02/25/18 05:45
[2018-03-01] MEDS: Oxycodone/Acetaminophen 5/325 mg Tab PO PRN (12:25)
--- NOTE | 2018-03-01 12:55 | CP.PCM.PCO ---
Assessment/Plan - Assessment/Plan Assessment (Free Text): Pt seen and cleared for d/c home by Dr. Smith and Dr. Tejeda. Pt's primary MD is Dr. Fulton. Dr. Tejeda will forward all reports to Dr. Fulton. Pt will f/u with Dr. Fulton in 1 week. Per CM, [facility] is out of network with pt's insurance , pt to be referred to an in-network facility by PMD to f/u for chemo treatment. Pt and family at bedside aware of plan.
--- NOTE | 2018-03-01 15:53 | CP.PCM.PN ---
Subjective - Date & Time of Evaluation Date of Evaluation: 03/01/18 Time of Evaluation: 09:00 - Subjective Subjective: Patient doing well postop. Minimal abdominal pain. Dr. Cherry was also at bedside. Objective - Vital Signs/Intake and Output Vital Signs (last 24 hours): Temp Pulse Resp BP Pulse Ox 98.6 F 80 20 106/71 99 03/01/18 08:35 03/01/18 08:35 03/01/18 08:35 03/01/18 08:35 03/01/18 08:35 - Labs Labs: 03/01/18 05:15 03/01/18 05:15 PT 12.1 Seconds (9.8-13.1) 02/25/18 05:45 INR 1.1 02/25/18 05:45 APTT 29.2 Seconds (25.6-37.1) 02/25/18 05:45 - Head Exam Head Exam: ATRAUMATIC - Eye Exam Eye Exam: Normal appearance - ENT Exam ENT Exam: Mucous Membranes Moist - Respiratory Exam Respiratory Exam: Clear to Ausculation Bilateral - Cardiovascular Exam Cardiovascular Exam: REGULAR RHYTHM - GI/Abdominal Exam GI & Abdominal Exam: Soft Assessment and Plan (1) Abdominal pain Status: Acute (2) 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 Patient aware of need for chemotherapy. She was encouraged concerning her \prognosis if she complies with the regimen prescribed by oncology Status: Acute
--- NOTE | 2018-03-01 18:17 | CP.PCM.DIS ---
Provider - Provider Date of Admission: 02/19/18 14:25 Attending physician: Khai Tejeda MD Primary care physician: Mary Grace Sam MD Time Spent in preparation of Discharge (in minutes): 20 Diagnosis - Discharge Diagnosis (1) Colon cancer Status: Acute (2) Abdominal pain Status: Acute Hospital Course - Lab Results Lab Results: Micro Results 02/19/18 Unknown Blood Blood Culture - Final NO GROWTH AFTER 5 DAYS 02/19/18 Unknown Blood Gram Stain - Final TEST NOT PERFORMED 02/19/18 08:00 Blood Blood Culture - Final NO GROWTH AFTER 5 DAYS 02/19/18 08:00 Blood Gram Stain - Final TEST NOT PERFORMED Most Recent Lab Values WBC 6.2 K/uL (4.8-10.8) 03/01/18 05:15 RBC 3.57 Mil/uL (3.80-5.20) L 03/01/18 05:15 Hgb 8.6 g/dL (12.0-16.0) L 03/01/18 05:15 Hct 26.6 % (34.0-47.0) L 03/01/18 05:15 MCV 74.4 fl (81.0-99.0) L 03/01/18 05:15 MCH 24.0 pg (27.0-31.0) L 03/01/18 05:15 MCHC 32.2 g/dL (33.0-37.0) L 03/01/18 05:15 RDW 18.0 % (11.5-14.5) H 03/01/18 05:15 Plt Count 507 K/uL (130-400) H 03/01/18 05:15 MPV 6.8 fl (7.2-11.7) L 03/01/18 05:15 Neut % (Auto) 64.3 % (50.0-75.0) 03/01/18 05:15 Lymph % (Auto) 26.4 % (20.0-40.0) 03/01/18 05:15 [place] % (Auto) 5.8 % (0.0-10.0) 03/01/18 05:15 Eos % (Auto) 3.2 % (0.0-4.0) 03/01/18 05:15 Baso % (Auto) 0.3 % (0.0-2.0) 03/01/18 05:15 Neut # (Auto) 4.0 K/uL (1.8-7.0) 03/01/18 05:15 Lymph # (Auto) 1.6 K/uL (1.0-4.3) 03/01/18 05:15 [place] # (Auto) 0.4 K/uL (0.0-0.8) 03/01/18 05:15 Eos # (Auto) 0.2 K/uL (0.0-0.7) 03/01/18 05:15 Baso # (Auto) 0.0 K/uL (0.0-0.2) 03/01/18 05:15 Neutrophils % (Manual) 93 % (42-75) H 02/25/18 18:55 Band Neutrophils % 3 % (0-2) H 02/19/18 08:00 Lymphocytes % (Manual) 7 % (20-50) L 02/25/18 18:55 Monocytes % (Manual) TEST NOT PERFORMED 02/25/18 18:55 Platelet Estimate Increased (NORMAL) H 02/25/18 18:55 Large Platelets Present 02/19/18 08:00 Hypochromasia (manual) Slight 02/25/18 18:55 Anisocytosis (manual) Slight 02/25/18 18:55 Microcytosis (manual) Slight 02/19/18 08:00 Tear Drop Cells Slight 02/19/18 08:00 Ovalocytes Slight 02/25/18 18:55 PT 12.1 Seconds (9.8-13.1) 02/25/18 05:45 INR 1.1 02/25/18 05:45 APTT 29.2 Seconds (25.6-37.1) 02/25/18 05:45 pO2 44 mm/Hg (30-55) 02/19/18 12:52 VBG pH 7.33 (7.32-7.43) 02/19/18 12:52 VBG pCO2 42 mmHg (40-60) 02/19/18 12:52 VBG HCO3 21.6 mmol/L 02/19/18 12:52 VBG Total CO2 23.4 mmol/L (22-28) 02/19/18 12:52 VBG O2 Sat (Calc) 80.1 % (40-65) H 02/19/18 12:52 VBG Base Excess -3.7 mmol/L (0.0-2.0) L 02/19/18 12:52 VBG Potassium 4.3 mmol/L (3.6-5.2) 02/19/18 12:52 Sodium 133.0 mmol/L (132-148) 02/19/18 12:52 Chloride 101.0 mmol/L (98-107) 02/19/18 12:52 Glucose 153 mg/dL (65-105) H 02/19/18 12:52 Lactate 2.4 mmol/L (0.7-2.1) H 02/19/18 12:52 FiO2 21.0 % 02/19/18 12:52 Sodium 137 mmol/l (132-148) 03/01/18 05:15 Potassium 4.1 MMOL/L (3.6-5.0) 03/01/18 05:15 Chloride 102 mmol/L (98-107) 03/01/18 05:15 Carbon Dioxide 29 mmol/L (22-30) 03/01/18 05:15 Anion Gap 10 (10-20) 03/01/18 05:15 BUN 2 mg/dl (7-17) L 03/01/18 05:15 Creatinine 0.5 mg/dl (0.7-1.2) L 03/01/18 05:15 Est GFR ( Amer) > 60 03/01/18 05:15 Est GFR (Non-Af Amer) > 60 03/01/18 05:15 POC Glucose (mg/dL) 76 mg/dL (65-110) 02/23/18 16:08 Random Glucose 96 mg/dL (65-105) 03/01/18 05:15 Hemoglobin A1c 5.7 % (4.2-6.5) 02/20/18 09:53 Calcium 8.8 mg/dL (8.4-10.2) 03/01/18 05:15 Phosphorus 3.3 mg/dl (2.5-4.5) 02/27/18 06:15 Magnesium 1.5 MG/DL (1.6-2.3) L 03/01/18 05:15 Iron < 10 ug/dL (37-170) L 02/23/18 05:30 TIBC 392 ug/dL (250-450) 02/23/18 05:30 % Saturation 2.6 % (20-55) L 02/23/18 05:30 Ferritin 10.5 ng/Ml (6.24-137.0) 02/22/18 09:13 Total Bilirubin 0.4 mg/dl (0.2-1.3) 03/01/18 05:15 AST 54 U/L (14-36) H D 03/01/18 05:15 ALT 61 U/L (9-52) H D 03/01/18 05:15 Alkaline Phosphatase 78 U/L (38-126) 03/01/18 05:15 Total Protein 5.8 G/DL (6.3-8.2) L 03/01/18 05:15 Albumin 3.0 g/dL (3.5-5.0) L 03/01/18 05:15 Globulin 2.8 gm/dL (2.2-3.9) 03/01/18 05:15 Albumin/Globulin Ratio 1.1 (1.0-2.1) 03/01/18 05:15 Triglycerides 101 mg/DL (0-149) 02/26/18 05:55 Lipase 131 U/L (23-300) 02/19/18 08:00 Carcinoembryonic Ag 1.4 ng/mL (0-3.0) 03/01/18 07:59 Vitamin B12 273 pg/mL (239-931) 02/22/18 09:13 Folate 15.4 ng/mL 02/22/18 09:13 Serum HCG, Qual Negative (NEGATIVE) 02/19/18 08:00 Venous Blood Potassium 4.3 mmol/L (3.6-5.2) 02/19/18 12:52 Urine HCG, Qual Negative (NEGATIVE) 02/24/18 17:25 Stool Occult Blood Positive (NEGATIVE) H 02/23/18 12:09 Acetaminophen < 10.0 ug/ml (10.0-30.0) L 02/20/18 09:58 Hepatitis A IgM Ab Negative (NEGATIVE) 02/20/18 09:58 Hep Bs Antigen Negative (NEGATIVE) 02/20/18 09:58 Hep B Core IgM Ab Negative (NEGATIVE) 02/20/18 09:58 Hepatitis C Antibody Negative (NEGATIVE) 02/20/18 09:58 Blood Type O POSITIVE 02/25/18 05:45 Antibody Screen Negative 02/25/18 05:45 Crossmatch See Detail 02/25/18 05:45 BBK History Checked Patient has bt 02/25/18 05:45 - Hospital Course Hospital Course: Pt seen and examined at bedside with Dr. Tejeda 37 yo F with pmhx of hypothyroidism and recent history of cholecystectomy presented with diffuse abdominal pain. 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 Sam in [address] Nikhil Ramos MD PGY2 Discharge Exam - Head Exam Head Exam: ATRAUMATIC - Eye Exam Eye Exam: EOMI - Respiratory Exam Respiratory Exam: NORMAL BREATHING PATTERN - Cardiovascular Exam Cardiovascular Exam: +S1, +S2 - GI/Abdominal Exam GI & Abdominal Exam: Normal Bowel Sounds, Tenderness (mild at ada) - Neurological Exam Neurological exam: Alert, CN II-XII Intact, Oriented x3 - Psychiatric Exam Psychiatric exam: Normal Affect, Normal Mood Discharge Plan - Discharge Medications Prescriptions: oxyCODONE/Acetaminophen [Percocet 5/325 mg Tab] 1 tab PO Q8 #12 tab - Follow Up Plan Condition: FAIR Disposition: HOME/ ROUTINE Instructions: Colectomy, Partial and Total, (DC), Surgical Wound (DC), Acute Abdominal Pain (DC) Referrals: Chris Smith MD [Staff Provider] - (follow in 10days post-op) Mary Grace Sam MD [Primary Care Provider] -
== END 2018-03-01 14:23 | disposition home or self-care (01) | DRG 330 ==
LOC: SUPCPDRO 07:21 → H.ER 07:21 → H.ERHOLD 14:25 → H.MEDSURG1 20:45
PROVIDERS: ADMIT Internal Medicine; ATTEND Internal Medicine
PROC: 0DBL8ZX Excision of Transverse Colon, Via Natural or Artificial Opening Endoscopic, Diagnostic (ICD-10-PCS; 2018-02-21)
PROC: 0DBN8ZX Excision of Sigmoid Colon, Via Natural or Artificial Opening Endoscopic, Diagnostic (ICD-10-PCS; 2018-02-21)
PROC: 3E0T3BZ Introduction of Anesthetic Agent into Peripheral Nerves and Plexi, Percutaneous Approach (ICD-10-PCS; 2018-02-25)
PROC: 0DTF0ZZ Resection of Right Large Intestine, Open Approach (ICD-10-PCS; principal; 2018-02-25 14:30)
PROC: 0FB10ZX Excision of Right Lobe Liver, Open Approach, Diagnostic (ICD-10-PCS; 2018-02-25 14:30)
DX: C18.4 Malignant neoplasm of transverse colon (principal); E87.2 Acidosis; R65.10 Systemic inflammatory response syndrome (SIRS) of non-infectious origin without acute organ dysfunction; C78.7 Secondary malignant neoplasm of liver and intrahepatic bile duct; C77.2 Secondary and unspecified malignant neoplasm of intra-abdominal lymph nodes; D50.9 Iron deficiency anemia, unspecified; E03.9 Hypothyroidism, unspecified; Z88.0 Allergy status to penicillin; K64.8 Other hemorrhoids; R79.89 Other specified abnormal findings of blood chemistry; D12.5 Benign neoplasm of sigmoid colon; F41.9 Anxiety disorder, unspecified

== ENCOUNTER 2018-03-10 23:33 | Emergency (ER) | payer BC ==
[2018-03-10 23:33] VITALS: BMI 26.4
[2018-03-10 23:37] VITALS: TEMP 98.5; O2SAT 100
--- NOTE | 2018-03-11 00:41 | ED PDOC ---
HPI: Wound Care - HPI Time Seen by Provider: 03/11/18 00:01 Chief Complaint (Nursing): Wound Check Chief Complaint (Provider): Wound Check History Per: Patient Exam Limitations: no limitations Onset/Duration Of Symptoms: Hrs (x 1 hour prior to arrival) Current Symptoms Are (Timing): Still Present Location Of Injury: Right: Abdomen Quality Of Symptoms: Draining Additional Complaint(s): 37 year old female presents to the ED for a surgical wound check on her abdominal due to drainage that began 1 hour ago. Patient reports having a cholecystectomy on February 12 and an hemicolectomy on February [address] Smith. Otherwise, she offers no other medical complains. PMD: Dr. Quach Past Medical History Reviewed: Historical Data, Nursing Documentation, Vital Signs Vital Signs: Last Vital Signs Temp 98.5 F 03/10/18 23:36 Pulse 116 H 03/10/18 23:36 Resp 19 03/10/18 23:36 BP 123/94 H 03/10/18 23:36 Pulse Ox 100 03/10/18 23:36 - Medical History PMH: Anemia, Gall Bladder Disease, Hypothyroidism Denies: HIV, Chronic Kidney Disease - Surgical History Surgical History: Appendectomy, Cholecystectomy (s/p lap zack feb 12), C -Section - Family History Family History: States: Unknown Family Hx - Immunization History Hx Tetanus Toxoid Vaccination: No Hx Influenza Vaccination: No Hx Pneumococcal Vaccination: No - Home Medications Home Medications: Ambulatory Orders Medication Instructions Recorded Ethinyl Estradiol/Drospirenone 1 tab PO DAILY 02/19/18 [Gianvi 3 mg-0.02 mg Tablet] Levothyroxine [Synthroid] 75 mcg PO DAILY 02/19/18 oxyCODONE/Acetaminophen [Percocet 1 tab PO Q4 PRN 02/19/18 5/325 mg Tab] oxyCODONE/Acetaminophen [Percocet 1 tab PO Q8 #12 tab 03/01/18 5/325 mg Tab] Doxycycline Hyclate 100 mg PO BID #14 capsule 03/11/18 - Allergies Allergies/Adverse Reactions: Allergies Allergy/AdvReac Type Severity Reaction Status Date / Time Penicillins Allergy RASH Verified 03/10/18 23:35 Review of Systems ROS Statement: Except As Marked, All Systems Reviewed And Found Negative Gastrointestinal: Positive for: Other (drainage from abdominal wound ) Physical Exam - Reviewed Nursing Documentation Reviewed: Yes Vital Signs Reviewed: Yes - Physical Exam Appears: Positive for: Non-toxic, No Acute Distress Head Exam: Positive for: ATRAUMATIC, NORMAL INSPECTION, NORMOCEPHALIC Skin: Positive for: Normal Color, Warm, Dry Eye Exam: Positive for: EOMI, Normal appearance, PERRL Neck: Positive for: Normal, Painless ROM, Supple Cardiovascular/Chest: Positive for: Regular Rate, Rhythm. Negative for: Murmur Respiratory: Positive for: Normal Breath Sounds. Negative for: Respiratory Distress Gastrointestinal/Abdominal: Positive for: Normal Exam, Soft, Other ( seripurulent liquid draining from inferior aspect of 5 cm wound). Negative for : Tenderness Extremity: Positive for: Normal ROM. Negative for: Deformity Neurologic/Psych: Positive for: Alert, Oriented (x 3). Negative for: Motor/ Sensory Deficits - Laboratory Results Result Diagrams: 03/11/18 01:30 03/11/18 01:30 - ECG O2 Sat by Pulse Oximetry: 100 (RA) Pulse Ox Interpretation: Normal Medical Decision Making Medical Decision Making: Time:12:10 Initial Impression:surgical wound drainage Initial Plan: --CT abdomen and pelvis -- BMP --CBC --Wound culture and gram stain stat Time: 01:30 Spoke with surgical brace maker who recommends CT abdomen and pelvis and Labs. 03:03 --Patient reports hives on face after CT, likely due to contrast. --Will be given Solumedrol, Benadryl and Pepcid. 03:19 CT abdomen and pelvis FINDINGS: Lower thorax: No acute findings. ABDOMEN: Liver: Normal. No mass. Gallbladder and bile ducts: There has been a cholecystectomy. Pancreas: Normal. No ductal dilation. Spleen: Normal. No splenomegaly. Adrenals: Normal. No mass. Kidneys and ureters: Normal. No hydronephrosis. Stomach and bowel: Status post right hemicolectomy. Appendix: No evidence of appendicitis. PELVIS: Bladder: Unremarkable as visualized. Reproductive: There is a 3.5 cm cyst in the left ovary. ABDOMEN and PELVIS: Intraperitoneal space: Stranding of the mesenteric fat in the upper abdomen. No free air. No significant fluid collection. Bones/joints: No acute fracture. No dislocation. Soft tissues: Postsurgical changes in the midline of the abdomen with stranding of the subcutaneous fat. Trace fluid in the anterior abdominal wall. Vasculature: Normal. No abdominal aortic aneurysm. Lymph nodes: Normal. No enlarged lymph nodes. IMPRESSION: Status post right hemicolectomy. Trace fluid in the anterior abdominal wall with subcutaneous fat inflammatory stranding 03:45 --vice president of talent management notified Dr. Smith's service. --Ct reveals no significant findings other than fluid. Patient is stable for discharge and will follow up with Dr. Smith. Scribe Attestation: Documented by Oliver Joy, acting as a scribe Srikanth Lamb MD ~ Provider Scribe Attestation: All medical record entries made by the Scribe were at my direction and personally dictated by me. I have reviewed the chart and agree that the record accurately reflects my personal performance of the history, physical exam, medical decision making, and the department course for this patient. I have also personally directed, reviewed, and agree with the discharge instructions and disposition. Disposition - Clinical Impression Clinical Impression: Draining postoperative wound - Patient ED Disposition Is Patient to be Admitted: No - Disposition Referrals: Blu Quach MD [Primary Care Provider] - Chris Smith MD [Staff Provider] - Disposition Time: 03:45 Condition: GOOD Additional Instructions: KIRT HAWKINS, thank you for letting us take care of you today. Your provider was Srikanth Lamb MD and you were treated for WOUND CHECK. The emergency medical care you received today was directed at your acute symptoms. If you were prescribed any medication, please fill it and take as directed. It may take several days for your symptoms to resolve. Return to the Emergency Department if your symptoms worsen, do not improve, or if you have any other problems. Please contact your doctor or call one of the physicians/clinics you have been referred to that are listed on the Patient Visit Information form that is included in your discharge packet. Bring any paperwork you were given at discharge with you along with any medications you are taking to your follow up visit. Our treatment cannot replace ongoing medical care by a primary care provider outside of the emergency department. Thank you for allowing the [facility] team to be part of your care today. If you had an X-Ray or CT scan: A Radiologist will review the ED reading if any change in treatment is needed we will contact you. If you had a blood, urine, or wound culture: It will take several days for the results, if any change in treatment is needed we will contact you. If you had an STI test: It will take 48 hours for the results. Please call after 1 week if you have not heard back. Prescriptions: Doxycycline Hyclate 100 mg PO BID #14 capsule Instructions: Wound Incision and Drainage Forms: [employer] (Bulgarian)
[2018-03-11 01:40] LABS: BASO # 0.1 K/uL (0.0-0.2); BASO % 0.8 % (0.0-2.0); EOS # 0.5 K/uL (0.0-0.7); EOS % 6.9 % (0.0-4.0); HEMOGLOBIN 9.4 g/dL (12.0-16.0); LYMPH # 2.5 K/uL (1.0-4.3); LYMPH % 33.4 % (20.0-40.0); MEAN CELL VOLUME 73.3 fl (81.0-99.0); MEAN CORPUSCULAR HEMOGLOBIN 23.5 pg (27.0-31.0); MEAN PLATELET VOLUME 7.1 fl (7.2-11.7); MONO # 0.5 K/uL (0.0-0.8); MONO % 6.7 % (0.0-10.0); NEUT # 3.9 K/uL (1.8-7.0); NEUT % 52.2 % (50.0-75.0); RBC 4.01 Mil/uL (3.80-5.20); RED CELL DISTRIBUTION WIDTH 17.4 % (11.5-14.5); WHITE BLOOD COUNT 7.4 K/uL (4.8-10.8)
[2018-03-11] MEDS ORDERED: Iohexol 300 100 ML IJ ONE (02:36)
[2018-03-11] MEDS ORDERED: Sodium Chloride 0.9% 50 ML IV ONE (02:37)
[2018-03-11 02:46] LABS: BLOOD UREA NITROGEN 11 mg/dl (7-17); CALCIUM 11.8 mg/dL (8.4-10.2); GFR NON-AFRICAN AMERICAN > 60
[2018-03-11] MEDS ORDERED: DiphenhydrAMINE 50 mg/ml Inj IV STA (03:03)
[2018-03-11] MEDS ORDERED: DiphenhydrAMINE 50 mg/ml Inj ONE (03:06)
--- NOTE | 2018-03-11 06:52 | CP.PCM.CON ---
History of Present Illness - History of Present Illness History of Present Illness: Surgery: Dr. 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 Pt presents to the ER today with some drainage from her incision that she noticed earlier today. Pt states she went for her f/u appointment with Dr. Smith last week and her ada were removed. Last night as she was picking up her daughter she noticed cloudy yellow fluid draining from her incision. She admits to one episode of fever 2 days prior but denies any other symptoms. She states she has been tolerating her diet and having regular BMs. She denies any more episodes of fevers/chills, chest pain or SOB. In the ER, pt had a CT abdomen/pelvis which showed trace amount of fluid and inflammation in the subcutaneous fat under the incision, consistent with post- op changes. Surgery called to evaluate. Currently, pt is resting comfortably in ER bed. Denies abdominal pain and states she has no other complaints at this time other than the drainage from the incision. Denies fevers/chills. PMHx: colon adenocarcinoma, hypothyroid PSHx: hand assisted extended R hemicolectomy, lap zack SocialHx: denies smoking/EtOH/drugs All: Penicillin Review of Systems - Review of Systems All systems: reviewed and no additional remarkable complaints except (as per HPI ) Past Patient History - Infectious Disease Hx of Infectious Diseases: None - Past Medical History & Family History Past Medical History?: Yes - Past Social History Smoking Status: Never Smoked - CARDIAC Hx Cardiac Disorders: No - PULMONARY Hx Respiratory Disorders: No - NEUROLOGICAL Hx Neurological Disorder: No - HEENT Hx HEENT Problems: No - RENAL Hx Chronic Kidney Disease: No - ENDOCRINE/METABOLIC Hx Hypothyroidism: Yes - HEMATOLOGICAL/ONCOLOGICAL Hx Anemia: Yes Hx Human Immunodeficiency Virus (HIV): No - INTEGUMENTARY Hx Dermatological Problems: No - MUSCULOSKELETAL/RHEUMATOLOGICAL Hx Musculoskeletal Disorders: No Hx Falls: No - GASTROINTESTINAL Hx Gall Bladder Disease: Yes - GENITOURINARY/GYNECOLOGICAL Hx Genitourinary Disorders: No Other/Comment: uterine fibroid - PSYCHIATRIC Hx Psychophysiologic Disorder: No Hx Substance Use: No - SURGICAL HISTORY Hx Appendectomy: Yes Hx Cholecystectomy: Yes (s/p lap zack feb 12) - ANESTHESIA Hx Anesthesia: Yes Hx Anesthesia Reactions: No Hx Malignant Hyperthermia: No Meds Home Medications: Home Medication List Medication Instructions Recorded Confirmed Type Doxycycline Hyclate 100 mg PO BID #14 capsule 03/11/18 Rx Allergies/Adverse Reactions: Allergies Allergy/AdvReac Type Severity Reaction Status Date / Time Penicillins Allergy RASH Verified 03/10/18 23:35 IV contrast Allergy URTICARIA Uncoded 03/11/18 07:10 Physical Exam - Constitutional Appears: Well, No Acute Distress - Head Exam Head Exam: ATRAUMATIC, NORMOCEPHALIC - Eye Exam Eye Exam: Normal appearance - ENT Exam ENT Exam: Mucous Membranes Moist - Respiratory Exam Respiratory Exam: NORMAL BREATHING PATTERN - Cardiovascular Exam Cardiovascular Exam: RRR - GI/Abdominal Exam GI & Abdominal Exam: Soft. absent: Distended, Guarding, Rebound, Tenderness Additional comments: incision with small pinpoint area of drainage at the inferior border, cloudy serous fluid expressed, non-purulent. no erythema or induration around the incision or drainage site - Extremities Exam Extremities exam: Negative for: calf tenderness - Neurological Exam Neurological exam: Alert, Oriented x3 - Skin Skin Exam: Dry, Warm Results - Vital Signs Recent Vital Signs: Last Vital Signs Temp 98.5 F 03/10/18 23:36 Pulse 116 H 03/10/18 23:36 Resp 19 03/10/18 23:36 BP 123/94 H 03/10/18 23:36 Pulse Ox 100 03/11/18 03:51 - Labs Result Diagrams: 03/11/18 01:30 03/11/18 01:30 Labs: Laboratory Results - last 24 hr 03/11/18 03/11/18 01:30 01:30 WBC 7.4 RBC 4.01 Hgb 9.4 L Hct 29.4 L MCV 73.3 L MCH 23.5 L MCHC 32.0 L RDW 17.4 H Plt Count 718 H D MPV 7.1 L Neut % (Auto) 52.2 Lymph % (Auto) 33.4 [place] % (Auto) 6.7 Eos % (Auto) 6.9 H Baso % (Auto) 0.8 Neut # (Auto) 3.9 Lymph # (Auto) 2.5 [place] # (Auto) 0.5 Eos # (Auto) 0.5 Baso # (Auto) 0.1 Sodium 138 Potassium 4.3 Chloride 100 Carbon Dioxide 26 Anion Gap 16 BUN 11 Creatinine 0.6 L Est GFR ( Amer) > 60 Est GFR (Non-Af Amer) > 60 Random Glucose 90 Calcium 11.8 H - Imaging and Cardiology CT scan - abdomen Status: Image reviewed by me Assessment & Plan - Assessment and Plan (Free Text) Assessment: 37F with post-op changes/drainage from surgical incision Plan: - WBC normal, no fevers - CT scan showing post-op changes - ok to DC from surgical standpoint - PO ABX - f/u as outpatient - case discussed with KAMARI Abbott for Dr. Masood Red
[2018-03-11 07:20] VITALS: BP 122/63; PULSE 88; RESP 18
--- NOTE | 2018-03-11 10:16 | CT ---
Date of service: 03/11/2018 PROCEDURE: CT Abdomen and Pelvis with contrast HISTORY: wound drainage COMPARISON: CT scan of the abdomen and pelvis dated 02/19/2018. TECHNIQUE: Contrast dose: 90 mL Omnipaque 300 Radiation dose: Total exam DLP = 284.8 mGy-cm. This CT exam was performed using one or more of the following dose reduction techniques: Automated exposure control, adjustment of the mA and/or kV according to patient size, and/or use of iterative reconstruction technique. FINDINGS: LOWER THORAX: Unremarkable. LIVER: Hepatic steatosis. No gross lesion or ductal dilatation. GALLBLADDER AND BILE DUCTS: Prior cholecystectomy with surgical clips in place. PANCREAS: Unremarkable. No gross lesion or ductal dilatation. SPLEEN: Unremarkable. ADRENALS: Unremarkable. No mass. KIDNEYS AND URETERS: Unremarkable. No hydronephrosis. No solid mass. VASCULATURE: Unremarkable. No aortic aneurysm. BOWEL: Interval right hemicolectomy. No obstruction. No gross mural thickening. APPENDIX: Not applicable. PERITONEUM: Supraumbilical midline surgical scar with trace fluid within the anterior abdominal wall and surrounding inflammatory stranding. No free air. LYMPH NODES: Unremarkable. No enlarged lymph nodes. BLADDER: Unremarkable. REPRODUCTIVE: Multiple degenerated fibroids. BONES: No acute fracture. OTHER FINDINGS: None. IMPRESSION: Interval right hemicolectomy with trace fluid in the anterior abdominal wall and postsurgical changes. No other significant interval change. Additional stable findings as above.
== END 2018-03-11 04:01 | disposition home or self-care (01) ==
LOC: H.ER 23:33
DX: T81.89XA Other complications of procedures, not elsewhere classified, initial encounter (principal); D64.9 Anemia, unspecified; E03.9 Hypothyroidism, unspecified; Z85.038 Personal history of other malignant neoplasm of large intestine; Z88.0 Allergy status to penicillin
CPT/HCPCS: 74177; 80048; 81025; 85025; 87070; 96374; 96375; 99283; J1200; J2930; Q9967